=== PATIENT | female | born 1950 | race Caucasian/White ===

== ENCOUNTER → 2017-05-20 | Outpatient (REF) | payer MEDICARE, OTHER ==
[2017-05-20 22:15] LABS: ATYPICAL LYMPH 1 % (0-5); EOSINOPHILS 3 % (0-5); LYMPHOCYTES 15 % (16-52); MONOCYTES 7 % (0-8); NEUTROPHILS 74 % (35-75); PLATELET ESTIMATE NORMAL (NORMAL)
== END ==
LOC: M LAB REF 17:46
DX: Z85.038 Personal history of other malignant neoplasm of large intestine (principal); Z93.3 Colostomy status
CPT/HCPCS: 85007

== ENCOUNTER → 2018-01-20 | Outpatient (REF) | payer MEDICARE, OTHER ==
[2018-01-21 14:37] LABS: HEPATITIS C VIRUS ABY INDEX 0.1 INDEX (<0.8)
== END ==
LOC: M LAB REF 17:36
DX: Z01.89 Encounter for other specified special examinations (principal)
CPT/HCPCS: 86803

== ENCOUNTER → 2018-05-20 | Outpatient (REF) | payer MEDICARE, OTHER ==
[~2018-05-20] MED LIST: BUSPIRONE PO; CALCIUM & VITAMIN D PO; LISI10TA4 PO; MAGNESIUM OXIDE PO; MULTIVIT PO; POTA20TA PO; VITAMIN B-50 PO; VITAMIN D50000 UNT PO
== END ==
LOC: M LAB REF 11:49
PROVIDERS: ATTEND Nurse Practitioner Adult Health
DX: Z85.038 Personal history of other malignant neoplasm of large intestine (principal)

== ENCOUNTER → 2019-04-15 | Outpatient (CLI) | payer MEDICARE, OTHER ==
--- NOTE | 2019-04-15 15:32 | REP ---
Clinical: Lung screening. History smoking. Comparison: 02/23/2014 Technique: Axial low-dose noncontrast images from the thoracic inlet to the upper abdomen using lung screening technique. Findings: The lung beaulieu are well-aerated. No consolidation, significant nodule or mass lesion is appreciated. No pleural effusion/reaction or pneumothorax. Tracheobronchial tree is patent. Mediastinum demonstrates mild atherosclerotic changes of the coronary arteries without cardiomegaly. Impression: Lung-RADS category I. No nodule or suspicious abnormality. Electronically Signed by Jorge Luis Zapien MD 04/15/2019 03:24 P
== END ==
LOC: M RAD 13:57
PROVIDERS: ATTEND Nurse Practitioner Adult Health
DX: F17.210 Nicotine dependence, cigarettes, uncomplicated (principal)

== ENCOUNTER → 2020-01-07 | Outpatient (CLI) | payer MEDICARE, OTHER ==
[2020-01-07 19:23] LABS: BASO # 0.1 10^3/uL (0.0-0.2); BASO % 0.5 % (0.0-1.0); EOS # 0.2 10^3/uL (0.0-0.5); EOS % 2.2 % (0.0-3.0); HEMOGLOBIN 16.4 g/dl (12.0-15.5); LYMPH # 1.2 10^3/uL (1.5-5.0); LYMPH % 11.1 % (24.0-44.0); MEAN CORPUSCULAR HEMOGLOBIN 30.1 pg (27.0-33.0); MEAN CORPUSCULAR HGB CONC 32.8 g/dl (32.0-36.5); MEAN CORPUSCULAR VOLUME 91.9 fl (80.0-96.0); MONO % 8.8 % (0.0-5.0); NEUTROPHILS # 8.4 10^3/uL (1.5-8.5); PLATELET COUNT, AUTOMATED 324 10^3/uL (150-450); RED BLOOD COUNT 5.44 10^6/uL (4.00-5.40); WHITE BLOOD COUNT 10.9 10^3/uL (4.0-10.0)
[2020-01-07 19:26] LABS: CALCIUM LEVEL 10.3 MG/DL (8.8-10.2); CREATININE FOR GFR 1.33 MG/DL (0.55-1.30); GLOMERULAR FILTRATION RATE 42.2 (>45); POTASSIUM SERUM 4.6 MEQ/L (3.5-5.1)
== END ==
LOC: M WUC 13:10
PROVIDERS: ATTEND Physician Assistant
DX: M54.5 Low back pain (principal); Z79.899 Other long term (current) drug therapy

== ENCOUNTER → 2020-01-07 | Outpatient (REF) | payer MEDICARE, OTHER | LOC: M LAB REF 18:20 | PROVIDERS: ATTEND Physician Assistant | DX: R35.0 Frequency of micturition (principal) ==

== ENCOUNTER → 2020-03-04 | Outpatient (CLI) | payer MEDICARE, OTHER ==
--- NOTE | 2020-03-09 08:43 | SLEEPCENT ---
DATE: 03/04/2020 ORDERED BY: Kaci Stanton Nocturnal polysomnography was performed for the titration of pressure therapy in this patient with obstructive sleep apnea syndrome. For testing, a ResMed AirFit F20 full-face mask of medium size was used. There was 10 cm of water pressure applied to the circuit, and the lights were extinguished. There was 7 hours and 38 minutes of data reviewed. There was 371 minutes of sleep identified. Sleep latency was mildly prolonged at 15 minutes. REM latency was prolonged at 131 minutes. Sleep architecture was good with three REM cycles. Overall sleep efficiency was 81.9%. The electrocardiogram showed a sinus rhythm with average heart rate of 68 beats per minute. EEG showed normal waveforms for wake and sleep. Persistence of respiratory events prompted an increase in CPAP to the optimal pressure of +15, and remaining measures of sleep physiologies were normal. IMPRESSION: Obstructive sleep apnea syndrome (G47.33). RECOMMENDATION: Nightly use of pressure therapy, 15 cm of water. MTDD
== END ==
LOC: M SLEEP 20:00
PROVIDERS: ATTEND Nurse Practitioner Adult Health
DX: G47.33 Obstructive sleep apnea (adult) (pediatric) (principal)

== ENCOUNTER → 2020-05-11 | Outpatient (CLI) | payer MEDICARE, OTHER ==
--- NOTE | 2020-05-11 12:44 | REP ---
INDICATION: CKD 3B , HTN COMPARISON: 05/02/2010 TECHNIQUE: Real time moran scale ultrasound examination using curved array transducer. FINDINGS: The bilateral kidneys are normal in reniform shape and echotexture with increased central sinus fat and mild cortical thinning consistent with chronic medical renal disease. No hydronephrosis, nephrolithiasis, cystic or renal mass lesion appreciated. Right kidney measures 11.4 x 4.8 x 4.3 cm with suggestions for duplicated collecting system. Left kidney measures 10.9 x 4.3 x 4.0 cm with suggestions for duplicated collecting system. IMPRESSION: Chronic medical renal disease. No hydronephrosis. <Electronically signed by Jorge Luis Zapien > 05/11/20 [id number]
--- NOTE | 2020-05-11 12:56 | REP ---
INDICATION: CKD 3B , HTN, WITH PVR COMPARISON: None TECHNIQUE: Real time B-mode ultrasound examination using curved array transducer. FINDINGS: Bladder never appears fully distended. No obvious bladder mass lesion is appreciated. No bilateral ureteral jets were identified during examination. Prevoid bladder measures 6.1 x 6.6 x 2.0 cm (53 cc). Postvoid bladder measures 0 cc Postvoid residual: 0% IMPRESSION: 1. Bladder never appears fully distended. However there is complete emptying on postvoid images. <Electronically signed by Jorge Luis Zapien > 05/11/20 [id number]
== END ==
LOC: M RAD 11:11
PROVIDERS: ATTEND Internal Medicine Nephrology
DX: N18.32 Chronic kidney disease, stage 3b (principal); Z93.2 Ileostomy status; I12.9 Hypertensive chronic kidney disease with stage 1 through stage 4 chronic kidney disease, or unspecified chronic kidney disease

== ENCOUNTER → 2020-05-17 | Outpatient (CLI) | payer MEDICARE, OTHER ==
--- NOTE | 2020-05-17 14:02 | REP ---
INDICATION: NICOTINE DEPENDENCE COMPARISON: 04/15/2019, 08/10/2010 TECHNIQUE: Axial noncontrast images from the thoracic inlet to the upper abdomen using low-dose lung screening technique (LDCT). FINDINGS: Bilateral lung beaulieu are well aerated and clear. No suspicious nodule mass lesion. No consolidation or effusion. No pneumothorax. Tracheobronchial tree is patent. IMPRESSION: Lung-RADS category 1. No suspicious nodule or mass. Management recommendations include annual low-dose surveillance. <Electronically signed by Jorge Luis Zapien > 05/17/20 [id number]
== END ==
LOC: M RAD 13:35
PROVIDERS: ATTEND Nurse Practitioner Adult Health
DX: Z12.2 Encounter for screening for malignant neoplasm of respiratory organs (principal); F17.218 Nicotine dependence, cigarettes, with other nicotine-induced disorders

== ENCOUNTER → 2020-08-17 | Outpatient (CLI) | payer MEDICARE, OTHER ==
--- NOTE | 2020-08-17 14:07 | REPMRS ---
Patient History The patient states she has not had a clinical breast exam in over a year. Patient is postmenopausal, has history of rectal cancer at age 55, and had previous chemotherapy at age 55. Family history of colorectal cancer in maternal aunt, unknown cancer in maternal grandmother. Patient had a right breast bx in 2006-neg. 3D TOMOSYNTHESIS WAS PERFORMED. [facility] lifetime risk for breast cancer is 4.5%. Volpara breast density a. Digital Woman Screen Mammo: August 17, 2020 - Exam #: [id number] Bilateral CC and MLO view(s) were taken. Technologist: Echo Espinoza, Technologist Prior study comparison: July 18, 2017, bilateral digital mammo screening bilat, performed at [facility]. December 31, 2014, diagnostic bilateral mammo, performed at [facility]. FINDINGS: There are scattered fibroglandular densities. There is a fairly symmetric fibroglandular pattern in both breasts. There has been no interval development of masses, areas of architectural distortion or clusters of microcalcifications typical of malignancy. Scattered small nodular opacities appear essentially stable. Scattered coarse benign type calcifications are present. No significant changes when compared with prior studies. Assessment: BI-RADS/ACR category 2 mammogram. Benign Findings. Recommendation Routine screening mammogram of both breasts in 1 year (for women over age 40). This mammogram was interpreted with the aid of an FDA-approved computer-aided dectection system. Electronically Signed By: Elmo Ledesma MD 08/17/20 [id number]
== END ==
LOC: M WHC 11:31
PROVIDERS: ATTEND Nurse Practitioner Adult Health
DX: Z12.31 Encounter for screening mammogram for malignant neoplasm of breast (principal); Z80.0 Family history of malignant neoplasm of digestive organs; Z85.048 Personal history of other malignant neoplasm of rectum, rectosigmoid junction, and anus; Z92.21 Personal history of antineoplastic chemotherapy; R92.1 Mammographic calcification found on diagnostic imaging of breast

== ENCOUNTER 2020-11-23 19:10 | Inpatient (IN) | payer MEDICARE, OTHER ==
[~2020-11-23] VITALS: Ht 170.2 cm; Wt 104.9 kg
[2020-11-23] MEDS ORDERED: ASPI81CH33 PO (19:27)
[2020-11-23] MEDS ORDERED: LISI-898 PO ×2 (19:27→23:55)
[2020-11-23] MEDS ORDERED: XANA0.25 PO (19:27)
[2020-11-23] MEDS ORDERED: ANOR1AER PO (19:27)
[2020-11-23] MEDS ORDERED: LASI40TA9 PO (19:27)
[2020-11-23] MEDS ORDERED: COMBAER6 INH ×2 (19:27→23:55)
[2020-11-23] MEDS ORDERED: OMEP-218 PO (19:27)
[2020-11-23] MEDS ORDERED: PROBCAP14 PO (19:27)
[2020-11-23] MEDS ORDERED: KLOR10TA76 PO (19:27)
[2020-11-23] MEDS ORDERED: SPIR-10 PO ×2 (19:28→23:55)
[2020-11-23] MEDS ORDERED: NS 1,000 ML IV ONE (20:05)
[2020-11-23] MEDS ORDERED: ONDANSETRON 4MG/2ML VIAL IV ONE (20:10)
[2020-11-23] MEDS ORDERED: MORPHINE 2 MG/ML 1ML VIAL (J2270) IV PRN ×2 (20:10→23:20)
[2020-11-23] MEDS ORDERED: PANTOPRAZOLE 40MG VIAL (C9113 PER 1) IV ONE (20:15)
[2020-11-23 20:47] LABS: BASO # 0.1 10^3/uL (0.0-0.2); BASO % 0.4 % (0.0-1.0); EOS % 0.1 % (0.0-3.0); HEMATOCRIT 48.1 % (36.0-47.0); HEMOGLOBIN 16.1 g/dl (12.0-15.5); LYMPH # 0.7 10^3/uL (1.5-5.0); MEAN CORPUSCULAR HGB CONC 33.5 g/dl (32.0-36.5); MEAN CORPUSCULAR VOLUME 86.7 fl (80.0-96.0); MONO # 0.8 10^3/uL (0.0-0.8); MONO % 5.5 % (2.0-8.0); NEUTROPHILS # 12.2 10^3/uL (1.5-8.5); NEUTROPHILS % 88.5 % (36.0-66.0); PLATELET COUNT, AUTOMATED 339 10^3/uL (150-450); RED BLOOD COUNT 5.55 10^6/uL (4.00-5.40); WHITE BLOOD COUNT 13.7 10^3/uL (4.0-10.0)
[2020-11-23 21:00] LABS: INR 0.88; PROTHROMBIN TIME 12.1 SECONDS (12.5-14.3)
[2020-11-23] MEDS ORDERED: LABETALOL 100MG/20ML VIAL IV SCH (21:00)
[2020-11-23 21:01] LABS: PARTIAL THROMBOPLASTIN TIME 23.9 SECONDS (24.2-38.5)
[2020-11-23] MEDS ORDERED: ISOVUE-370 76% 100ML VIAL As Ordered ONE (21:17)
[2020-11-23 21:23] LABS: ALBUMIN 3.8 GM/DL (3.2-5.2); ALT/SGPT 42 U/L (12-78); BILIRUBIN,DIRECT 0.1 MG/DL (0.0-0.2); BILIRUBIN,TOTAL 0.8 MG/DL (0.2-1.0); BLOOD UREA NITROGEN 25 MG/DL (7-18); CALCIUM LEVEL 9.6 MG/DL (8.8-10.2); CARBON DIOXIDE LEVEL 29 MEQ/L (21-32); CHLORIDE LEVEL 95 MEQ/L (98-107); CK-MB VALUE MASS 2.5 NG/ML (<3.6); CPK CREATINE PHOSPHOKINASE 214 U/L (26-192); CREATININE FOR GFR 1.42 MG/DL (0.55-1.30); GLUCOSE, FASTING 113 MG/DL (70-100); LIPASE 126 U/L (73-393); MB/CK RELATIVE INDEX 1.17 (< OR =4); POTASSIUM SERUM 5.2 MEQ/L (3.5-5.1); SODIUM LEVEL 132 MEQ/L (136-145); TOTAL PROTEIN 7.6 GM/DL (6.4-8.2); TROPONIN I < 0.02 NG/ML (< 0.10)
[2020-11-23 22:00] LABS: RSV AMPLIFICATION NEGATIVE (NEGATIVE)
--- NOTE | 2020-11-23 23:03 | REPVR ---
PROCEDURE INFORMATION: Exam: CT Abdomen And Pelvis With Contrast Exam date and time: 11/23/2020 9:40 PM Age: 70 years old Clinical indication: Abdominal pain; Prior surgery TECHNIQUE: Imaging protocol: Computed tomography of the abdomen and pelvis with contrast. Radiation optimization: All CT scans at this facility use at least one of these dose optimization techniques: automated exposure control; mA and/or kV adjustment per patient size (includes targeted exams where dose is matched to clinical indication); or iterative reconstruction. Contrast material: ISOVUE 370; Contrast volume: 100 ml; Contrast route: INTRAVENOUS (IV); COMPARISON: BLADDER (LIMITED PELVIC) US 05/11/2020 11:56 AM FINDINGS: Liver: Unremarkable. No mass. Gallbladder and bile ducts: There has been prior cholecystectomy. No biliary duct dilation. Pancreas: Normal. No ductal dilation. Spleen: Normal. No splenomegaly. Adrenal glands: 1.3 cm nodule in the right adrenal gland. Mild left adrenal hyperplasia. Kidneys and ureters: Unremarkable. No calculi or hydronephrosis. Stomach and bowel: 3.6 cm duodenal diverticulum. Prior partial colectomy. There is a colostomy in the left lower quadrant. The residual colon is decompressed. Postoperative changes are noted in the small bowel. The small bowel is dilated measuring up to 3.5 cm. Dilated bowel loops in the peristomal hernia with 2 separate transition points in the hernia. No pneumatosis. Appendix: There has been prior appendectomy. Intraperitoneal space: Mild mesenteric edema. No pneumoperitoneum or abscess. Vasculature: Unremarkable. No abdominal aortic aneurysm. Lymph nodes: Unremarkable. No enlarged lymph nodes. Urinary bladder: Unremarkable as visualized. Reproductive: There has been prior hysterectomy. Bones/joints: There are advanced degenerative changes in the spine and pelvis. No acute fracture. Soft tissues: A right lower quadrant ileostomy is present with a large peristomal hernia. IMPRESSION: 1. Distal small bowel obstruction with transition points in a peristomal hernia in the right lower quadrant. 2. Incidental duodenal diverticulum. 3. Nonspecific right adrenal nodule. Comparison with any prior imaging or follow-up adrenal MRI is recommended. Electronically signed by: Trae España On 11/23/2020 23:02:47 PM
[2020-11-23] MEDS ORDERED: IPRATROPIUM 0.5MG/ALBUTEROL 2.5MG INH SOL UD 3ML (DUONEB) NEB PRN (23:20)
[2020-11-23] MEDS ORDERED: NICOTINE 21MG/24HR 1 EA TRANSDERMAL TD ONE (23:20)
[2020-11-23] MEDS ORDERED: LORazepam 2 MG/ML VIAL IV PRN (23:45)
--- NOTE | 2020-11-23 23:46 | HPEPDOC ---
[facility] Medical History & Physical Date of Admission Nov 23, 2020 Date of Service: Nov 23, 2020 Primary Care Physician: Yoana Godinez Attending Physician: JAMISON GARY MD History and Physical CHIEF COMPLAINT: Abdominal pain with decreased ostomy output HISTORY OF PRESENT ILLNESS: Mrs. Dewey is a 70-year-old female who presented to the ER with complaints of increasing abdominal pain and decreased ileostomy output with some nausea since about 5 AM this morning. Patient has a history of rectal cancer with multiple pr evious abdominal surgeries and radiation. Ultimately, she wound up with an ileostomy since 2005. 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 She said she woke up this morning at around 5:30 AM and that was the last normal output she noted from her ostomy. As the morning wore on, she felt a little gassy, drank some water and took some gas pills and felt somewhat better. She had a very light breakfast and took some of her morning medications, but after that began to feel more bloated and noticed a decreased output. She started to drink more fluids, hoping that that would "get things flowing". However, she be lizzette to feel worse and finally went to bed. When things had not improved by late afternoon she called her primary care office and was instructed to proceed to the ER by the physician guest relations officer. On initial evaluation. Vital signs were relatively unremarkable. White blood cell count was elevated at 13.7. Hemoglobin and hematocrit were 16 and 48. The patient continues to smoke at least one pack of cigarettes per day despite a diagnosis of COPD. She uses Annoro daily and Combivent as needed. She takes Lasix and spironolactone for "fluid build up in my legs". She also takes a potassium supplement. She has a history of chronic kidney disease and follows with nephrology. Potassium today was 5.2. BUN/c reatinine 25 and 1.42. Baseline creatinine is not known. Sodium was also decreased at 132. Elevation of LFTs with AST of 49, alkaline phosphatase of 123. There is some mild elevation of CPK at 214. Lactic acid was normal. ER provider. Consult to Gen. surgery, Dr. Joiner, once the CT abdomen and pelvis was done. Imaging showed a distal small bowel obstruction with transition points in the parastomal hernia in the right lower quadrant. General surgery advised to keep the patient nothing by mouth, place an NG tube to low intermittent suction and start IV fluids. He will evaluate further in the morning. PAST MEDICAL HISTORY: 1. Rectal cancer with ileostomy. 2. Prolapsed ileostomy. 3. Mucoid fistula. 4. Depression. 5. Anxiety. 6. COPD 7. Diverticulitis. 8. Hypertension. 9. Chronic kidney disease. 10. Gastroesophageal reflux disease. 11. Cataracts. 12. Tobacco use PAST SURGICAL HISTORY: 1. Exploratory laparotomy with partial colon resection. 2. Exploratory laparotomy with colon resection and ileostomy. 3. Discectomy. 4. Tubal ligation. 5. Right knee surgery SOCIAL HISTORY: Tobacco use: Patient admits to smoking at least one pack per day ETOH: She has an occasional glass of wine Illicit drug use: Denies Patient lives with: Her FAMILY HISTORY: Family history was thoroughly reviewed and found to be noncontributory REVIEW OF SYSTEMS: Complete 10 point review systems is negative except as noted above PHYSICAL EXAMINATION: Patient is seen in the ER, lying on stretcher.. She is alert and oriented x 3. HEENT is WNL. Neck is supple. Lungs with some expiratory wheeze. Heart regular rate and rhythm without murmur. Abdomen is obese, soft with bowel sounds noted in the bilateral upper quadrants. . She has a right lower quadrant ostomy with a large prolapse. Prolapse is pink and viable. There is a small amount of light brown drainage. Significant parastomal hernia noted. Extremities with good ROM and strength equal bilaterally. 1+ lower extremity edema. Pedal pulses are positive. Skin is warm and dry with no obvious rash or lesion. Neuro: grossly intact. Psych: She is pleasant and cooperative through most of the interview, but becomes tearful after her left. Her children are in town for only a week to visit. ASSESSMENT AND PLAN: 1. Small bowel obstruction with multiple transition points in the parastomal hernia. Gen. surgery to evaluate in the morning. Patient will be kept nothing by mouth and NG tube will be inserted to low intermittent suction. Continue on IV fluids. Will add when necessary antiemetics and pain medications. 2. Chronic kidney disease stage III with baseline creatinine unclear. Will hold home Lasix and spironolactone. Patient is continued on gentle IV fluids. Avoid nephrotoxic medications. Monitor intake and output closely. Recheck kidney function in the morning. 3. Hyperkalemia. Hold home potassium supplementation. Patient is continued on IV fluids. Recheck potassium in the morning. 4. Leukocytosis secondary to small bowel obstruction. Plan as outlined above. Will hold off on starting antibiotics for now with a normal lactic acid. Recheck white blood cell count with labs in the morning. 5. Hypertension. Will add IV labetalol with patient nothing by mouth. Monitor with routine vital signs and adjust medications as needed based on trends. 6. Gastroesophageal reflux disease. IV Protonix. 7. Anxiety. Will add when necessary Ativan while nothing by mouth. 8. Hyponatremia. IV fluids. Recheck labs in the morning. 9. Transaminitis with small bowel obstruction. Plan as outlined above. Recheck labs in the morning. 10. DVT prophylaxis. Will add Lovenox. CODE STATUS: CODE STATUS was discussed with the patient desires to be considered full code. She states her , Dominick or her son Tam would act as her surrogate if she were unable to make her decisions. Patient is considered high risk of further deterioration including possible ischemic bowel. She is admitted as inpatient and expected to remain at least 2-3 midnights. Vital Signs Vital Signs Date Time Temp Pulse Resp B/P (MAP) Pulse Ox O2 Delivery O2 Flow Rate FiO2 11/23/20 21:07 18 11/23/20 20:52 11/23/20 19:12 98.5 95 97 Room Air Laboratory Data Labs 24H Laboratory Tests 2 11/23/20 20:20: Immature Granulocyte % (Auto) 0.5, Neutrophils (%) (Auto) 88.5H, Lymphocytes (%) (Auto) 5.0L, Monocytes (%) (Auto) 5.5, Eosinophils (%) (Auto) 0.1, Basophils (%) (Auto) 0.4, Neutrophils # (Auto) 12.2H, Lymphocytes # (Auto) 0.7L, Monocytes # (Auto) 0.8, Eosinophils # (Auto) 0.0, Basophils # (Auto) 0.1, Nucleated Red Blood Cells % (auto) 0.0, Prothrombin Time 12.1, Prothromb Time International Ratio 0.88, Activated Partial Thromboplast Time 23.9L, Anion Gap 8, Glomerular Filtration Rate 39.0L, Lactic Acid Level 1.1, Calcium Level 9.6, Total Bilirubin 0.8, Direct Bilirubin 0.1, Aspartate Amino Transf (AST/SGOT) 49H, Alanine Aminotransferase (ALT/SGPT) 42, Alkaline Phosphatase 123H, Total Creatine Kinase 214H, Creatine Kinase MB 2.5, Creatine Kinase MB Relative Index 1.17, Troponin I < 0.02, Total Protein 7.6, Albumin 3.8, Albumin/Globulin Ratio 1.0L, Lipase 126, Coronavirus (COVID-19)(PCR) NEGATIVE, Influenza Type A (RT-PCR) NEGATIVE, Influenza Type B (RT-PCR) NEGATIVE, Respiratory Syncytial Virus (PCR) NEGATIVE 11/23/20 20:42: POC Glucose (Misc Panel) 126H, POC Sodium (Misc Panel) 134L, POC Potassium (Misc Panel) 3.7, POC Chloride (Misc Panel) 93L, POC Total CO2 (Misc Panel) 27.0, POC Blood Urea Nitrogen (Misc Panel 25, POC Ionized Calcium (Misc Panel) 4.5, POC Creatinine (Misc Panel) 1.5H, POC Hematocrit (Misc Panel) 50.0 CBC/BMP Laboratory Tests 11/23/20 20:20 Home Medications Scheduled Aspirin (Aspirin) 81 Mg Tab.chew, 81 MG PO DAILY for pain Furosemide (Lasix) 40 Mg Tablet, 40 MG PO BID Ipratropium/Albuterol Sulfate (Combivent Respimat 20-100 Mcg) 4 Gm Mist.inhal, 2 PUFF INH TID Lactobacillus Acidophilus (Probiotic) 1 Each Capsule, 1 CAP PO BID Lisinopril (Lisinopril) 5 Mg Tablet, 5 MG PO DAILY Multivitamins (Multivitamin) 1 Tab Tab, PO DAILY Omeprazole (Omeprazole) 20 Mg Capsule.dr, 20 MG PO DAILY Potassium Chloride (Klor-Con M10) 10 Meq Tab.er.prt, 1 TAB PO DAILY Spironolactone (Spironolactone) 25 Mg Tablet, 25 MG PO DAILY Umeclidinium Brm/Vilanterol Tr (Anoro Ellipta 62.5-25 Mcg INH) 1 Each Blst.w.dev, 1 PUFF PO DAILY Vitamin D (Vitamin D) 50,000 Units Cap, 50,000 UNT PO 1XWK [Buspirone] , 20 MG PO TID [Calcium & Vitamin D] , PO DAILY [Vitamin B-50] , 1 TAB PO DAILY Scheduled PRN Alprazolam (Xanax) 0.25 Mg Tablet, 0.25 MG PO BIDP PRN for anxiety Allergies Coded Allergies: MS - Penicillins (Verified Allergy, Intermediate, HIVES, 08/12/12) MS - Penicillins Cross Reactors (Verified Allergy, Intermediate, HIVES, 08/12/12) Penicillins (Verified Allergy, Intermediate, HIVES, 11/23/20) sertraline (Verified Adverse Reaction, Intermediate, BP ISSUES(non specific), 11/23/20) MS - Sertraline (Verified Adverse Reaction, Mild, BP PROBLEMS, 08/12/12) A-FIB/CHADSVASC A-FIB History Current/History of A-Fib/PAF?: No BENNY MCBRIDE TANYA Nov 23, 2020 23:46
[2020-11-23] MEDS ORDERED: OCUVTAB8 PO (23:55)
[2020-11-23] MEDS ORDERED: BUPR100T10 PO (23:55)
[2020-11-23] MEDS ORDERED: KLOR CON EF PO (23:55)
[2020-11-23] MEDS ORDERED: OMEP1CAP73 PO (23:55)
[2020-11-23] MEDS ORDERED: ANTA1CHW6 PO (23:55)
[2020-11-23] MEDS ORDERED: ALPR0.25 PO (23:55)
[2020-11-23] MEDS ORDERED: PROAAER10 INH (23:55)
[2020-11-23] MEDS ORDERED: SIME125C4 PO (23:55)
[2020-11-23] MEDS ORDERED: B-COTAB4 PO (23:55)
[2020-11-23] MEDS ORDERED: CAL-TAB2 PO (23:55)
[2020-11-23] MEDS ORDERED: BACITAB PO (23:55)
[2020-11-23] MEDS ORDERED: VITMTA PO (23:55)
[2020-11-23] MEDS ORDERED: CHOL50003 PO (23:55)
[2020-11-23] MEDS ORDERED: ASPI1CHW3 PO (23:55)
[2020-11-23] MEDS ORDERED: ANOR1AER INH (23:55)
[2020-11-23] MEDS ORDERED: BUPR-69 PO (23:55)
[2020-11-23] MEDS ORDERED: FURO40TA2 PO (23:55)
[2020-11-24] MEDS: NS 1,000 ML IV SCH ×2 (00:10→16:58)
[2020-11-24 02:05] VITALS: BP 153/78
[2020-11-24] MEDS: ALPRAZolam 0.25 MG TAB PO SCH (02:26)
[2020-11-24] MEDS ORDERED: NICOTROL PRN (02:40)
--- NOTE | 2020-11-24 05:30 | ECGEPIP ---
[facility] [place] - ED Test Date: 2020-11-23 Pat Name: VALENTIN WHALEY Department: Room: - Gender: Female General Internist: BRETT : 1950 Requested By: IDA Oconnell Order Number: [id number] Reading MD: Sunny Benitez Measurements Intervals [place] Rate: 89 P: 56 TX: 158 QRS: 12 QRSD: 74 T: 32 QT: 388 QTc: 472 Interpretive Statements Normal sinus rhythm Low voltage QRS NO PRIORS FOR COMPARISON Electronically Signed on 11-24-2020 5:30:32 EDT by Sunny Benitez
[2020-11-24 06:29] VITALS: BP 148/73
[2020-11-24] MEDS: **hydrALAZINE** 10 MG TAB PO PRN (06:36)
[2020-11-24 06:50] LABS: HEMATOCRIT 44.5 % (36.0-47.0); HEMOGLOBIN 14.9 g/dl (12.0-15.5); MEAN CORPUSCULAR HEMOGLOBIN 29.1 pg (27.0-33.0); MEAN CORPUSCULAR HGB CONC 33.5 g/dl (32.0-36.5); MEAN CORPUSCULAR VOLUME 86.9 fl (80.0-96.0); PLATELET COUNT, AUTOMATED 331 10^3/uL (150-450); RED BLOOD COUNT 5.12 10^6/uL (4.00-5.40)
[2020-11-24 07:09] LABS: ALBUMIN 3.3 GM/DL (3.2-5.2); BILIRUBIN,TOTAL 0.7 MG/DL (0.2-1.0); CALCIUM LEVEL 9.1 MG/DL (8.8-10.2); CREATININE FOR GFR 1.29 MG/DL (0.55-1.30); GLOMERULAR FILTRATION RATE 43.6 (>45); MAGNESIUM LEVEL 2.4 MG/DL (1.8-2.4); POTASSIUM SERUM 3.9 MEQ/L (3.5-5.1); TOTAL PROTEIN 6.3 GM/DL (6.4-8.2)
[2020-11-24] MEDS: IPRATROPIUM 0.5MG/ALBUTEROL 2.5MG INH SOL UD 3ML (DUONEB) NEB SCH ×3 (07:12→19:50)
[2020-11-24] MEDS: BUDESONIDE 0.5 MG/2 ML INHALATION SUSPENSION INH SCH ×2 (07:12→19:50)
[2020-11-24] MEDS ORDERED: LevoFLOXacin IV 750 MG in IV 1 EA IV SCH (09:00)
[2020-11-24] MEDS ORDERED: hydrALAZINE 20MG/ML 1ML VIAL (J0360 PER 20MG) IV PRN (09:05)
--- NOTE | 2020-11-24 09:44 | IPNPDOC ---
Subjective Date Seen The patient was seen on 11/24/20. Subjective Chief Complaint/HPI Mrs. Dewey is a 70-year-old female who presented to the ER with complaints of increasing abdominal pain and decreased ileostomy output with some nausea past 24 hours. The patient has a history of rectal cancer with multiple previous abdominal surgeries, ostomy placement and reversal between [id number]. 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 She underwent CT a/p and found to have SBO and general surgery, Dr. Joiner, was consulted. Pt reported she has a hx of SBOs, last was a few years ago at [facility] and it resolved after a few days reportedly. Pt reports she is feeling improvement in pain. She still describes slightly intermittently dull sensation generalized of her abdomen, 2/10 rating and mild generalized tenderness noted. NGT canister with 300ml output liquid levine/brown in coloration noted, this is since admission reportedly. This is the same liquid that is in the ostomy bag (roughly 100ml in bag noted)- Pt reports she cannot recall when last she changed the bag- it may have been yesterday. Patient is somewhat drowsy during exam- last pain medication reportedly last night, she did remark she was unable to sleep most of the night due to the pain, but now denies nausea and with pain lessened-reports feeling she can rest. Pt denies meadows, fever/ chills, sinus congestion, sore throat, sob, palpitations, or chest pain. General: Denies: Chills, Night Sweats, Fatigue, Malaise Constitutional: Reports: Fatigue; Denies: Chills, Fever Eyes: Denies: Pain, Vision change ENT: Denies: Head Aches, Ear Pain, Dysphagia Skin: Denies: Rash, Lesions, Breakdown Pulmonary: Denies: Dyspnea, Cough Cardiovascular: Denies: Chest Pain, Palpitations, Orthopnea, Paroxysmal Noc. Dyspnea, Lt Headedness Gastrointestinal: Reports: Nausea, Abdominal Pain, Constipation Genitourinary: Denies: Dysuria, Frequency, Incontinence, Retention Hematologic: Denies: Bruising, Bleeding Excessively Musculoskeletal: Denies: Neck Pain, Back Pain, Joint Pain, Muscle Pain, Spasms Neurological: Denies: Weakness, Numbness, Change in speech, Confusion Psych: Reports: Mood Normal; Denies: Depression, Memory Issues Objective Physical Examination General Exam: Positive: Cooperative, No Acute Distress, Other (drowsy, doozing intermittently, able to arouse easily and response very appropriately, ox3) Eye Exam: Positive: PERRLA, Conjunctiva & lids normal, EOMI; Negative: Sclera icteric ENT Exam: Positive: Atraumatic, Mucous membr. moist/pink, Pharynx Normal Neck Exam: Positive: Supple; Negative: JVD, thyromegaly Chest Exam: Positive: Clear to auscultation, Normal air movement Heart Exam: Positive: Rate Normal, Regular Rhythm, Normal S1, Normal S2; Negative: Murmurs, Rubs Abdomen Exam: Positive: Soft (tinkiling sounds with auscultation, obese body habitus; ileostomy present with prolapsed stoma, stoma pink/ moist, minor drainage serosanguinous to surrounding gauze of the ostomy, abdominal binder in place), Tenderness, Other Female Exam: Positive: Nl Ext Genitalia; Negative: Lesions, Discharge, Odor, Tenderness Extremity Exam: Positive: Normal pulses; Negative: Clubbing, Cyanosis, Edema Skin Exam: Positive: Nl turgor and temperature, Other skin issue (no obvious moisture breakdown noted surrounding visualized portions of abdominal skin around ostomy site); Negative: Rash, Breakdown Neuro Exam: Positive: Normal Speech, Strength at 5/5 X4 ext, Normal Tone Psych Exam: Positive: Mental status NL, Mood NL, Oriented x 3 RAD Interpretation STUDY: CT abdomen pelvis:"1. Dis Rad Actions: Report Reviewed RAD Interpretation: Other Result Comments: (Incidental finding and recommendation noted) Assessment /Plan Plan/VTE VTE Prophylaxis Ordered?: Yes Plan IVF: Continue Diet: Continue Current (NPO) Activity: Continue Current Medications: Start Antibiotics (levaquin and flagyl) Diagnostics: Repeat Labs in AM Anticipated Discharge: Home 1. Small bowel obstruction with multiple transition points in the parastomal hernia: Pt improving clinical symptoms. Plan for continued conservative management. Gen. surgery recommendations appreciated. Patient will be kept nothing by mouth and NG tube continued at low intermittent suction. Continue on IV fluids. As ne eded antiemetics and pain medications. Patient was educated regarding judicious use of pain medication given the risk and benefits of side effects with small bowel obstruction and opiates. 2. Chronic kidney disease stage III with baseline creatinine unclear. Cr 1.42 to 1.29 this AM. Will continue to hold home Lasix and spironolactone. Continue on gentle IV fluids with monitoring for fluid overload or hypertension. Avoid nephrotoxic medications. Monitor intake and output closely. BMP in AM. 3. Hyperkalemia. Hold home potassium supplementation. Patient is continued on IV fluids. 4. Leukocytosis secondary to small bowel obstruction. Plan as outlined above. Patient fortunately without systemic signs of infection (she remains afebrile, not tachycardic). However her WBCs have increased this a.m. and thus, will initiate Levaquin and Flagyl for intra-abdominal coverage. Monitor for any s igns symptoms of worsening infection. CBC with differential in AM. De-escalate antibiotics accordingly. 5. Hypertension. Monitor with routine vital signs and adjust medications as needed based on trends. P.o. medications on hold given above. Plan for IV blood pressure control if patient systolic blood pressure greater than 160 for the interim while patient is n.p.o. 6. Gastroesophageal reflux disease. IV Protonix. 7. Anxiety. Ativan IV as needed with parameters. 8. Hyponatremia. IV fluids. Na improved to 136. BMP in a.m. 9. Transaminitis with small bowel obstruction. Resolving, AST improved to 31, alk phos dec to 112. 10. DVT prophylaxis: Lovenox. 11. Incidental CT abdomen pelvis finding of nonspecific right adrenal nodule, 1.3 cm: Plan for outpatient PCP follow-up for imaging such as an adrenal MRI. Patient without hypertensive urgency, tachycardia or diaphoretic state. Disposition Home once pt with normoactive BS, adequate ostomy output and tolerating PO, greatly appreciate general surgery recommendations VS, I&O, 24H, Fishbone Vital Signs/I&O Vital Signs Date Time Temp Pulse Resp B/P (MAP) Pulse Ox O2 Delivery O2 Flow Rate FiO2 11/24/20 06:36 148/73 11/24/20 06:29 97.4 85 24 91 Room Air I&O- Last 24 Hours up to 6 AM 11/24/20 06:00 Intake Total 1480 ml Balance 1480 ml Laboratory Data 24H LABS Laboratory Tests 2 11/23/20 20:20: Immature Granulocyte % (Auto) 0.5, Neutrophils (%) (Auto) 88.5H, Lymphocytes (%) (Auto) 5.0L, Monocytes (%) (Auto) 5.5, Eosinophils (%) (Auto) 0.1, Basophils (%) (Auto) 0.4, Neutrophils # (Auto) 12.2H, Lymphocytes # (Auto) 0.7L, Monocytes # (Auto) 0.8, Eosinophils # (Auto) 0.0, Basophils # (Auto) 0.1, Nucleated Red Blood Cells % (auto) 0.0, Prothrombin Time 12.1, Prothromb Time International Ratio 0.88, Activated Partial Thromboplast Time 23.9L, Anion Gap 8, Glomerular Filtration Rate 39.0L, Lactic Acid Level 1.1, Calcium Level 9.6, Total Bilirubin 0.8, Direct Bilirubin 0.1, Aspartate Amino Transf (AST/SGOT) 49H, Alanine Aminotransferase (ALT/SGPT) 42, Alkaline Phosphatase 123H, Total Creatine Kinase 214H, Creatine Kinase MB 2.5, Creatine Kinase MB Relative Index 1.17, Troponin I < 0.02, Total Protein 7.6, Albumin 3.8, Albumin/Globulin Ratio 1.0L, Lipase 126, Coronavirus (COVID-19)(PCR) NEGATIVE, Influenza Type A (RT-PCR) NEGATIVE, Influenza Type B (RT-PCR) NEGATIVE, Respiratory Syncytial Virus (PCR) NEGATIVE 11/23/20 20:42: POC Glucose (Misc Panel) 126H, POC Sodium (Misc Panel) 134L, POC Potassium (Misc Panel) 3.7, POC Chloride (Misc Panel) 93L, POC Total CO2 (Misc Panel) 27.0, POC Blood Urea Nitrogen (Misc Panel 25, POC Ionized Calcium (Misc Panel) 4.5, POC Creatinine (Misc Panel) 1.5H, POC Hematocrit (Misc Panel) 50.0 11/24/20 06:18: Nucleated Red Blood Cells % (auto) 0.0, Anion Gap 7L, Glomerular Filtration Rate 43.6L, Calcium Level 9.1, Total Bilirubin 0.7, Aspartate Amino Transf (AST/SGOT) 31, Alanine Aminotransferase (ALT/SGPT) 49, Alkaline Phosphatase 112, Total Pr otein 6.3L, Albumin 3.3, Albumin/Globulin Ratio 1.1L, Magnesium Level 2.4 CBC/BMP Laboratory Tests 11/23/20 20:20 11/24/20 06:18 Attending Note Attending Note I, Baldev Dhillon, have independently examined this patient and performed my own physical exam, as well as reviewed the documentation and edited where necessary. MARILEE LAND NP Nov 24, 2020 09:08 BALDEV DHILLON MD Nov 24, 2020 11:38
[2020-11-24] MEDS: PANTOPRAZOLE 40MG VIAL (C9113 PER 1) IV SCH (10:30)
[2020-11-24] MEDS: metroNIDAZOLE 500 MG in IV 1 EA IV SCH ×2 (10:30→17:41)
[2020-11-24] MEDS: ENOXAPARIN 30MG/0.3ML SYRINGE (J1650 PER 10MG) SC SCH (10:36)
[2020-11-24] MEDS: LevoFLOXacin IV 750 MG in IV 1 EA IV SCH (11:57)
--- NOTE | 2020-11-24 13:18 | CR.PDOC ---
General Date of Consultation: Nov 24, 2020 Attending Physician: JOHN JOINER MD Consultation General Surgery Dr Joiner HISTORY OF PRESENT ILLNESS: The patient is a 70-year-old female who had reported to the emergency room with increasing abdominal pain and decreased ileostomy output with nausea which had began the morning of 11/23/2020. The patient is known to have a history of rectal cancer with multiple previous abdominal surgeries and radiation. She also has chronic ileostomy prolapse, mucoid fistula and parastomal hernia. She states she has had similar symptoms a couple of weeks ago where she felt nauseated, she has had bowel obstruction in the past therefore she stopped eating or drinking and the symptoms seem to resolve on their own, she did not seek medical attention. General surgery is consulted for small bowel obstruction. ALLERGIES: Please see below. HOME MEDICATIONS: Please see below. PMH/PSH Rectal cancer with colon resection/ileostomy 2005. Completed Chemo/radiation. Reversal of ostomy 2006 complicated by persistent diarrhea. Re-Placement of Ostomy 2008 secondary to persistent symptoms of diarrhea Prolapsed ileostomy/parastomal hernia for the past 7 years progressively worse linda according to the patient. Mucoid fistula. Depression. Anxiety. COPD Diverticulitis. Hypertension. Chronic kidney disease. Gastroesophageal reflux disease. Cataracts. Tobacco use Discectomy. Tubal ligation. Right knee surgery SOCIAL HISTORY: Tobacco use: Patient admits to smoking at least one pack per day REVIEW OF SYSTEMS: As noted in HPI otherwise 10 point review systems unremarkable. PHYSICAL EXAMINATION: VITAL SIGNS: Please see below. GENERAL APPEARANCE: NAD, sitting in bed. HEENT: NG tube in place RESPIRATORY: Clear to auscultation CARDIOVASCULAR: S1-S2 regular rate rhythm ABDOMEN: Obese, soft, distended, ostomy right lower quadrant. Large prolapse noted, pink in color. Light brown drainage noted in the bag. Parastomal hernia noted. EXTREMITIES: No edema LABORATORY DATA: WBC 14.0, hemoglobin 14.9, platelets 331 Serum creatinine 1.29 with GFR 43.6. 500ml output from NGT recorded. CT abdomen/pelvis IMPRESSION: 1. Distal small bowel obstruction with transition points in a peristomal hernia in the right lower quadrant. 2. Incidental duodenal diverticulum. 3. Nonspecific right adrenal nodule. Comparison with any prior imaging or follow-up adrenal MRI is recommended. Electronically signed by: Trae España On 11/23/2020 23:02:47 PM ASSESSMENT/PLAN: Patient with history of rectal cancer with multiple previous abdominal surgeries and radiation. She also has chronic ileostomy prolapse, mucoid fistula and parastomal hernia. Admitted with SBO. The patient is reviewed and examined as per Dr. Joiner this morning. Imaging reviewed by Dr. Joiner. Continue n.p.o. NG tube to LIS IV fluids, IV antibiotics as per hospitalist. Continue to closely monitor. Vital Signs/I&O Vital Signs Date Time Temp Pulse Resp B/P (MAP) Pulse Ox O2 Delivery O2 Flow Rate FiO2 11/24/20 06:36 148/73 11/24/20 06:29 97.4 85 24 91 Room Air I&O- Last 24 Hours up to 6 AM 11/24/20 06:00 Intake Total 1480 ml Balance 1480 ml Laboratory Data Labs 24H Laboratory Tests 2 11/23/20 20:20: Immature Granulocyte % (Auto) 0.5, Neutrophils (%) (Auto) 88.5H, Lymphocytes (%) (Auto) 5.0L, Monocytes (%) (Auto) 5.5, Eosinophils (%) (Auto) 0.1, Basophils (%) (Auto) 0.4, Neutrophils # (Auto) 12.2H, Lymphocytes # (Auto) 0.7L, Monocytes # (Auto) 0.8, Eosinophils # (Auto) 0.0, Basophils # (Auto) 0.1, Nucleated Red Blood Cells % (auto) 0.0, Prothrombin Time 12.1, Prothromb Time International Ratio 0.88, Activated Partial Thromboplast Time 23.9L, Anion Gap 8, Glomerular Filtration Rate 39.0L, Lactic Acid Level 1.1, Calcium Level 9.6, Total Bilirubin 0.8, Direct Bilirubin 0.1, Aspartate Amino Transf (AST/SGOT) 49H, Alanine Aminotransferase (ALT/SGPT) 42, Alkaline Phosphatase 123H, Total Creatine Kinase 214H, Creatine Kinase MB 2.5, Creatine Kinase MB Relative Index 1.17, Troponin I < 0.02, Total Protein 7.6, Albumin 3.8, Albumin/Globulin Ratio 1.0L, Lipase 126, Coronavirus (COVID-19)(PCR) NEGATIVE, Influenza Type A (RT-PCR) NEGATIVE, Influenza Type B (RT-PCR) NEGATIVE, Respiratory Syncytial Virus (PCR) NEGATIVE 7/14/21 20:42: POC Glucose (Misc Panel) 126H, POC Sodium (Misc Panel) 134L, POC Potassium (Misc Panel) 3.7, POC Chloride (Misc Panel) 93L, POC Total CO2 (Misc Panel) 27.0, POC Blood Urea Nitrogen (Misc Panel 25, POC Ionized Calcium (Misc Panel) 4.5, POC Creatinine (Misc Panel) 1.5H, POC Hematocrit (Misc Panel) 50.0 11/24/20 06:18: Nucleated Red Blood Cells % (auto) 0.0, Anion Gap 7L, Glomerular Filtration Rate 43.6L, Calcium Level 9.1, Total Bilirubin 0.7, Aspartate Amino Transf (AST/SGOT) 31, Alanine Aminotransferase (ALT/SGPT) 49, Alkaline Phosphatase 112, Total P rotein 6.3L, Albumin 3.3, Albumin/Globulin Ratio 1.1L, Magnesium Level 2.4 CBC/BMP Laboratory Tests 11/23/20 20:20 11/24/20 06:18 Allergies Coded Allergies: Penicillins (Verified Allergy, Intermediate, HIVES, 11/23/20) sertraline (Verified Adverse Reaction, Intermediate, BP ISSUES(non specific), 11/23/20) Home Medications Scheduled Alprazolam (Alprazolam) 0.25 Mg Tablet, 0.25 MG PO BID, (Reported) Aspirin (Aspirin) 81 Mg Tab.chew, 81 MG PO DAILY, (Reported) Bupropion HCl (Bupropion HCl) 100 Mg Tablet, 200 MG PO DAILY, (Reported) Bupropion HCl (Bupropion HCl) 100 Mg Tablet, 100 MG PO QPM, (Reported) Calcium/Magnesium/Zinc (Etamyht-Rjmmilcaq-Bzev Tablet) 1 Each Tablet, 1 TAB PO DAILY, (Reported) Cholecalciferol (Vitamin D3) (Vitamin D3) 125 Mcg Capsule, 125 MCG PO DAILY, (Reported) Furosemide (Furosemide) 40 Mg Tablet, 40 MG PO BID, (Reported) L.acidoph/L.bulg/B.bif/S.therm (Bacid Caplet) 1 Each Tablet, 1 TAB PO BID, (Reported) Lisinopril (Lisinopril) 5 Mg Tablet, 5 MG PO DAILY, (Reported) Multivitamins (Thera M Plus Tablet) 1 Each Tablet, 1 TAB PO DAILY, (Reported) Mv-Min/FA/Vit K/Lycop/Lut/Zeax (Ocuvite Eye Plus Multi Tablet) 1 Each Tablet, 1 TAB PO DAILY, (Reported) Omeprazole (Omeprazole) 20 Mg Capsule.dr, 20 MG PO QPM, (Reported) AROUND DINNERTIME Spironolactone (Spironolactone) 25 Mg Tablet, 25 MG PO DAILY, (Reported) Umeclidinium Brm/Vilanterol Tr (Anoro Ellipta 62.5-25 Mcg INH) 1 Each Blst.w.dev, 1 PUFF INH DAILY, (Reported) Vitamin B Complex (Vitamin B Complex) 1 Each Tablet, 1 TAB PO DAILY, (Reported) [Klor Con Ef 25MEQ] , 25 MEQ PO DAILY, (Reported) MIX WITH WATER Scheduled PRN Albuterol Sulfate (Proair Hfa) 8.5 Gm Hfa.aer.ad, 2 PUFF INH QID PRN for SHORTNESS OF BREATH, (Reported) Calcium Carb/Magnesium Hydrox (Antacid 1000-200 mg Tab Chew) 1 Each Tab.chew, 2 CHW PO 5XD PRN for HEARTBURN/INDIGESTION, (Reported) Ipratropium/Albuterol Sulfate (Combivent Respimat 20-100 Mcg) 4 Gm Mist.inhal, 1 PUFF INH QID PRN for SHORTNESS OF BREATH, (Reported) Simethicone (Gas-X) 125 Mg Capsule, 125 MG PO QID PRN for GAS PAIN, (Reported) Attending Note Attending Note I interviewed Ms. Dewey and came back and reexamined her 1 more time with an independent of Ms. Titus. She has a longstanding parastomal hernia. She has an end ileostomy and it looks like this is a permanent ileostomy as the rectal stump looks to be very stenosed due to postop radiation. She has a remote history of rectal cancer. Her ostomy is also chronically prolapsed up to the foot out from the skin. She currently has a bowel obstruction related to the parastomal hernia. Her ostomy is remaining viable though there is no much output of air and succus from it. She has some mild tenderness around the area of the ostomy but no guarding or rebound on examination. Labs are stable. I reviewed the imaging studies that are available. Including the CT abdomen pelvis done at the emergency room. Had a long discussion with her. She will be treated initially nonoperatively to see if her bowel obstruction resolves. She has been seeing somebody in [facility] for her ostomy repair and is asking about which institutions are known for hernia repair. She is not interested in hernia repair in our [facility]. If her obstruction resolves then she can follow-up as an outpatient either to her surgeon and [facility]. She is interested in establishing at the [facility] and she could choose to do so there to. If her obstruction does not resolve through to the weekend then she will need surgical intervention to resolve the obstruction also to deal with the hernia and I have discussed w ith her my algorithm and doing so. For now continue with IV fluid hydration as well as nasogastric tube decompression. I have advised the patient to ambulate in the hallways. Yary Titus Nov 24, 2020 13:04 JOHN JOINER MD Nov 29, 2020 09:47
[2020-11-24 14:00] VITALS: BP 157/90
[2020-11-24 20:50] VITALS: BP 157/89
[2020-11-25] MEDS: metroNIDAZOLE 500 MG in IV 1 EA IV SCH ×3 (01:30→18:12)
[2020-11-25] MEDS: ACETAMINOPHEN TAB 650MG DOSE (2X325MG) PO PRN (01:31)
[2020-11-25] MEDS: IPRATROPIUM 0.5MG/ALBUTEROL 2.5MG INH SOL UD 3ML (DUONEB) NEB SCH ×4 (02:35→19:14)
[2020-11-25 05:59] LABS: HEMATOCRIT 44.8 % (36.0-47.0); HEMOGLOBIN 14.8 g/dl (12.0-15.5); MEAN CORPUSCULAR HEMOGLOBIN 29.1 pg (27.0-33.0); PLATELET COUNT, AUTOMATED 292 10^3/uL (150-450); RED BLOOD COUNT 5.09 10^6/uL (4.00-5.40); WHITE BLOOD COUNT 9.5 10^3/uL (4.0-10.0)
[2020-11-25 06:00] VITALS: BP 161/89
[2020-11-25] MEDS: NS 1,000 ML IV SCH ×2 (06:02→18:46)
[2020-11-25 06:29] LABS: ALBUMIN 3.1 GM/DL (3.2-5.2); BILIRUBIN,TOTAL 0.7 MG/DL (0.2-1.0); CREATININE FOR GFR 1.27 MG/DL (0.55-1.30); GLOMERULAR FILTRATION RATE 44.4 (>45); POTASSIUM SERUM 3.7 MEQ/L (3.5-5.1); TOTAL PROTEIN 6.4 GM/DL (6.4-8.2)
[2020-11-25] MEDS: BUDESONIDE 0.5 MG/2 ML INHALATION SUSPENSION INH SCH ×2 (07:11→19:14)
[2020-11-25] MEDS: ENOXAPARIN 30MG/0.3ML SYRINGE (J1650 PER 10MG) SC SCH (09:43)
[2020-11-25] MEDS: PANTOPRAZOLE 40MG VIAL (C9113 PER 1) IV SCH (09:43)
--- NOTE | 2020-11-25 10:52 | IPNPDOC ---
Text Note Date of Service The patient was seen on 11/25/20. NOTE I followed up on Ms. Dewey today. She reports minimal to no abdominal cramping. She denies any nausea. Her ileostomy still prolapsing out but this is chronically prolapsed. Very minimal output from the ileostomy. Vital signs reviewed T-max 97.8. Blood pressure 161/89. Pulse rate 87. Respiratory rate 20. Pulse oximetry 93% at room air I/O Gastric drainage 1475 yesterday 200 mL overnight. Ileostomy output 50 mL overnight. On examination Patient looks more comfortable also more awake today. She is coughing intermittently. Reports some discomfort from the nasogastric tube. Abdominal examination: Rounded, protuberant abdomen. Still somewhat mildly distended though this is hard to ascertain. Her abdomen looks symmetric. She has about a foot of her ileostomy prolapsing which is chronic. The prolapsed ileostomy looks pink. I tried to reduce this back and only got chcf and I am feeling some tension at the ileostomy so I presume that the parastomal hernia is not fully reduced though it could also be that this is chronically within the hernia sac. Unclear if she has resolved her bowel obstruction. Laboratories WBC 9.5 Impression and plan Patient with permanent ileostomy secondary to prior rectal cancer, looks to have a subtotal colectomy with left over sigmoid and rectum. Longstanding parastomal hernia, ileostomy prolapse Now with small bowel obstruction most likely related to the parastomal hernia I spent 45 minutes in the room. I had a long discussion with her, her and her son on the phone. I discussed with him my plan of care which is to continue with nasogastric tube decompression through the weekend up until we see some evidence of resolution of the bowel obstruction, not necessarily of the protrusion or prolapse of the ileostomy. She is markedly improved with a nasogastric tube decompression and she appears to be well decompressed. I am not sure yet whether her obstruction has fully resolved. Her if her obstruction has not resolved through the weekend we will plan for surgery. Primary role of surgery is to resolve the obstruction and only secondarily to repair the hernia. We had long discussions on the complexities of parastomal hernia repair. They are wishing for a more permanent fix of the hernia repair which I think they are alluding to allow an abdominal wall reconstruction. I told him that in terms of urgency or emergency, I do not and generally the surgical community would not do a formal abdominal wall reconstruction emergently or urgently. She is voicing desire to be transferred to [facility]. With long discussions with were good hernia clinics are done. I given the name of Zac East in [facility], Troy Hagan in [facility] and Sreedhar Luis in [facility] which are more prominent names in the abdominal reconstruction world. They seem to have the impression that she could be transferred to those institutions, meets those names and be considered for an emergent or urgent abdominal wall reconstruction and I told him that probably not. She probably will be admitted to the general surgery service and the treatment usually is the same. In any case I think she is improving. Plan remains the same. We will continue to follow her up while she is here. If she does improve she can choose to go to those names for those institutions for an outpatient interval follow- up. VS,Fishbone, I+O VS, Fishbone, I+O Laboratory Tests 11/25/20 05:37 Vital Signs Date Time Temp Pulse Resp B/P (MAP) Pulse Ox O2 Delivery O2 Flow Rate FiO2 11/25/20 06:00 97.8 87 20 161/89 (113) 93 Room Air I&O- Last 24 Hours up to 6 AM 11/25/20 05:59 Intake Total 1970 ml Output Total 2024 ml Balance -55 ml JOHN WOODS MD Nov 25, 2020 10:52
[2020-11-25] MEDS: LevoFLOXacin IV 750 MG in IV 1 EA IV SCH (11:06)
--- NOTE | 2020-11-25 12:46 | IPNPDOC ---
Subjective Date Seen The patient was seen on 11/25/20. Subjective Chief Complaint/HPI Mrs. Dewey is a 70-year-old female with PMH: rectal CA, multiple abdominal surgery, ileostomy prolapse, hernia and mucoid fistula presented to the ER with complaints of increasing abdominal pain and decreased ileostomy output with some nausea. She underwent CT a/p and found to have SBO and general surgery, Dr. Joiner, was consulted. Pt reported she has a hx of SBOs, last was a few years ago at [facility] and it resolved after bowel rest. Today, Pt reports she is feeling improvement in pain, "almost none there". She reports she is still "exhausted", but describes this as not uncommon for her given with too many things going on, she gets "worn out" easily. She describes a gradual decline over the years and reports she may need to use the walker with seat in it she had to use in past after a recovery- she is amenable to PT as she does not want to become more deconditioned. She reports interest in having the ostomy reversed given the SBO and discussing with surgery her wishes to possible transfer to [place]. Pt denies meadows, fever/ chills, sinus congestion, sore throat, sob, palpitations, or chest pain. Events since last encounter 200ml brown liquid to NGT canister, 50ml ostomy output General: Reports: Normal Appetite; Denies: Chills, Night Sweats, Fatigue, Malaise Constitutional: Reports: Fatigue Eyes: Denies: Pain, Vision change ENT: Denies: Head Aches, Ear Pain, Dysphagia Skin: Denies: Rash, Lesions, Breakdown Pulmonary: Denies: Dyspnea, Cough Cardiovascular: Denies: Chest Pain, Palpitations, Orthopnea, Paroxysmal Noc. Dyspnea, Lt Headedness Gastrointestinal: Reports: Abdominal Pain, Constipation Genitourinary: Denies: Dysuria, Frequency, Incontinence, Retention Hematologic: Denies: Bruising, Bleeding Excessively Musculoskeletal: Denies: Neck Pain, Back Pain, Joint Pain, Muscle Pain, Spasms Neurological: Denies: Weakness, Numbness, Change in speech, Confusion Psych: Reports: Anxiety Objective Physical Examination General Exam: Positive: Cooperative, No Acute Distress, Other (drowsy, able to arouse easily and response very appropriately, ox3) Eye Exam: Positive: PERRLA, Conjunctiva & lids normal, EOMI; Negative: Sclera icteric ENT Exam: Positive: Atraumatic, Mucous membr. moist/pink, Pharynx Normal Neck Exam: Positive: Supple; Negative: JVD, thyromegaly Chest Exam: Positive: Clear to auscultation, Normal air movement Heart Exam: Positive: Rate Normal, Regular Rhythm, Normal S1, Normal S2; Negative: Murmurs, Rubs Abdomen Exam: Positive: BS Hypoactive (increased BS compared to yesterday), Soft (obese body habitus; ileostomy present with prolapsed stoma, stoma pink/ moist, minor drainage serosanguinous to surrounding gauze of the ostomy, abdominal binder in place), Tenderness (minimal ), Other Female Exam: Positive: Nl Ext Genitalia; Negative: Lesions, Discharge, Odor, Tenderness Extremity Exam: Positive: Normal pulses; Negative: Clubbing, Cyanosis, Edema Skin Exam: Positive: Nl turgor and temperature, Other skin issue (no obvious moisture breakdown noted surrounding visualized portions of abdominal skin around ostomy site); Negative: Rash, Breakdown Neuro Exam: Positive: Normal Speech, Strength at 5/5 X4 ext, Normal Tone Psych Exam: Positive: Mental status NL, Mood NL, Oriented x 3 Assessment /Plan Plan/VTE VTE Prophylaxis Ordered?: Yes Plan IVF: Continue Diet: Continue Current (NPO) Activity: Continue Current Therapy: PT (therapeutic purposes) Diagnostics: Repeat Labs in AM Anticipated Discharge: Home 1. Small bowel obstruction with multiple transition points in the parastomal hernia: - Pt improving clinical symptoms. - Plan for continued conservative management. - Gen. surgery recommendations appreciated. Please see surgery progress note regarding recommendations for [facility] transfer. - [facility] was contacted per patient request today transfer center number is [phone]; Informed that there is a delay for availability and thus a lateral transfer would be at earliest accepted next week. - Patient thankfully improving symptoms; she may be discharged ready at that point. - Information relayed to patient and determination regarding transfer cost and inpatient versus outpatient route to be determined. - Patient will be kept nothing by mouth and NG tube clamping trial for today. - If patient has recurrence of symptoms will reinitiate decompression with NG tube to low intermittent suction. - Continue patient on IV fluids. - As needed antiemetics and pain medications. - Patient was educated regarding judicious use of pain medication given the risk and benefits of side effects with small bowel obstruction and opiates. - Unfortunately, patient unable to take Xanax p.o. given above was educated regarding Ativan IV as needed until/if she is able to tolerate diet trial. 2. Chronic kidney disease stage III with baseline creatinine unclear. Cr 1.27 this AM. Will continue to hold home Lasix and spironolactone. Continue on gentle IV fluids with monitoring for fluid overload or hypertension. Avoid nephrotoxic medications. Monitor intake and output closely. BMP in AM. 3. Hyperkalemia. Hold home potassium supplementation. Patient is continued on IV fluids. K3.7 this a.m. 4. Leukocytosis secondary to small bowel obstruction: Improved WBCs normalized at 9.5 this AM. Continue plan as outlined above. Patient fortunately without systemic signs of infection (she remains afebrile, not tachycardic). Continue Levaquin and Flagyl for intra-abdominal coverage. Monitor for any signs symptoms of worsening infection. CBC with differential in AM. De-escalate antibiotics accordingly. 5. Hypertension. Monitor with routine vital signs and adjust medications as needed based on trends. P.o. medications on hold given above. Plan for IV blood pressure control if patient systolic blood pressure greater than 160 for the interim while patient is n.p.o. patient would need to transfer to another unit if required IV blood pressure control. 6. Gastroesophageal reflux disease. IV Protonix. 7. Anxiety. Ativan IV as needed with parameters. Patient was educated regarding holding p.o. Xanax at present 8. Hyponatremia. IV fluids. Na improved to 141. BMP in a.m. 9. Transaminitis with small bowel obstruction. Resolving, AST improved to 29, ALT 70, alk phos 122, bili 0.7 10. DVT prophylaxis: Lovenox. 11. Incidental CT abdomen pelvis finding of nonspecific right adrenal nodule, 1.3 cm: Plan for outpatient PCP follow-up for imaging such as an adrenal MRI. Patient without hypertensive urgency, tachycardia or diaphoretic state. Disposition Transfer to [facility] per patient request versus pending clinical improvement discharge home and follow-up outpatient VS, I&O, 24H, Fishbone Vital Signs/I&O Vital Signs Date Time Temp Pulse Resp B/P (MAP) Pulse Ox O2 Delivery O2 Flow Rate FiO2 11/25/20 06:00 97.8 87 20 161/89 (113) 93 Room Air I&O- Last 24 Hours up to 6 AM 11/25/20 06:00 Intake Total 2045 ml Output Total 2025 ml Balance 20 ml Laboratory Data 24H LABS Laboratory Tests 2 11/25/20 05:37: Nucleated Red Blood Cells % (auto) 0.0, Anion Gap 8, Glomerular Filtration Rate 44.4L, Lactic Acid Level 1.1, Calcium Level 9.0, Total Bilirubin 0.7, Aspartate Amino Transf (AST/SGOT) 29, Alanine Aminotransferase (ALT/SGPT) 70, Alkaline Phosphatase 122H, Total Creatine Kinase 91, Total Protein 6.4, Albumin 3.1L, Albumin/Globulin Ratio 0.9L CBC/BMP Laboratory Tests 11/25/20 05:37 Past Medical History Past Surgical History: Rectal cancer with colon resection/ileostomy 2005. Completed Chemo/radiation. Reversal of ostomy 2006 complicated by persistent diarrhea. 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 Mucoid fistula. Attending Note Attending Note I, Baldev Dhillon, have independently examined this patient and performed my own physical exam, as well as reviewed the documentation and edited where necessary. MARILEE LAND NP Nov 25, 2020 10:47 BALDEV DHILLON MD Nov 25, 2020 13:51
[2020-11-25 22:00] VITALS: BP 161/81
[2020-11-26] MEDS: ACETAMINOPHEN TAB 650MG DOSE (2X325MG) PO PRN (00:24)
[2020-11-26] MEDS: metroNIDAZOLE 500 MG in IV 1 EA IV SCH ×3 (01:04→18:42)
[2020-11-26] MEDS: NS 1,000 ML IV SCH (01:04)
[2020-11-26] MEDS: IPRATROPIUM 0.5MG/ALBUTEROL 2.5MG INH SOL UD 3ML (DUONEB) NEB SCH ×4 (01:41→19:07)
[2020-11-26 06:00] VITALS: BP 152/91
[2020-11-26 06:32] LABS: ALBUMIN 3.2 GM/DL (3.2-5.2); BILIRUBIN,TOTAL 0.5 MG/DL (0.2-1.0); CALCIUM LEVEL 8.3 MG/DL (8.8-10.2); CREATININE FOR GFR 1.22 MG/DL (0.55-1.30); GLOMERULAR FILTRATION RATE 46.5 (>45); POTASSIUM SERUM 3.4 MEQ/L (3.5-5.1); TOTAL PROTEIN 6.2 GM/DL (6.4-8.2)
[2020-11-26 06:49] LABS: BASO % 0.5 % (0.0-1.0); EOS % 0.3 % (0.0-3.0); HEMATOCRIT 44.6 % (36.0-47.0); HEMOGLOBIN 14.7 g/dl (12.0-15.5); LYMPH # 0.9 10^3/uL (1.5-5.0); LYMPH % 9.8 % (24.0-44.0); MEAN CORPUSCULAR HEMOGLOBIN 29.3 pg (27.0-33.0); MONO % 11.5 % (2.0-8.0); NEUTROPHILS # 6.7 10^3/uL (1.5-8.5); NEUTROPHILS % 77.6 % (36.0-66.0); PLATELET COUNT, AUTOMATED 284 10^3/uL (150-450); RED BLOOD COUNT 5.01 10^6/uL (4.00-5.40); WHITE BLOOD COUNT 8.7 10^3/uL (4.0-10.0)
[2020-11-26] MEDS: BUDESONIDE 0.5 MG/2 ML INHALATION SUSPENSION INH SCH ×2 (07:17→19:07)
[2020-11-26] MEDS: KCL 10MEQ/100ML SWI (KRUN) 10 MEQ in IV 1 EA IV SCH ×5 (08:31→15:40)
[2020-11-26] MEDS: PANTOPRAZOLE 40MG VIAL (C9113 PER 1) IV SCH (08:32)
[2020-11-26] MEDS: ENOXAPARIN 30MG/0.3ML SYRINGE (J1650 PER 10MG) SC SCH (08:32)
[2020-11-26] MEDS ORDERED: FUROSEMIDE 20MG/2ML VIAL (J1940) IV SCH (09:00)
[2020-11-26] MEDS: ALPRAZolam 0.25 MG TAB PO SCH ×4 (10:17→22:29)
--- NOTE | 2020-11-26 10:42 | IPNPDOC ---
Text Note Date of Service The patient was seen on 11/26/20. NOTE Subjective: Patient is a 70-year-old female with a PMHx of Multiple abdominal surgeries 2/2 Rectal CA (w/ ileostomy prolapse, hernia, mucoid fistula), HTN, COPD w/ Active nicotine dependence, Depression / Anxiety, CKD3, GERD who presented to the hospital initially because of abdominal pain, decrease of her ostomy and nausea. Patient was admitted to the hospital service after she was found to have small bowel obstruction. General surgery was called on consultation. Patient was seen and examined at the bedside. Currently patient reports that she has had an uneventful evening. She denies any chest pain, shortness breath, palpitations. NG tube remains in place and continues to drain. Patient denies any abdominal discomfort, however, has not had any significant upper from her ostomy. Objective: Vitals (See below) General: Lying in bed, appears comfortable, AAOx3 HEENT: NC, AT CVS: RRR, +S1S2 Lungs: Fair air entry b/l, no evidence of wheezing, rales or rhonchi Abdomen: Soft, nondistended, no significant tenderness right lower quadrant with ileostomy prolapse noted, left lower quadrant with mucous fistula Extremities: - Edema, - Calf tenderness Imaging: CT abdomen / pelvis 11/23: 1. Distal small bowel obstruction with transition points in a peristomal hernia in the right lower quadrant. 2. Incidental duodenal diverticulum. 3. Nonspecific right adrenal nodule. Comparison with any prior imaging or follow-up adrenal MRI is recommended. Assessment and plan: Small bowel obstruction with multiple transition points in the parastomal hernia - Clinically patient reports that she feels relatively well. Has not expressed any further nausea since NG tube placement - NG tube continues to drain - Abdomen is benign without any tenderness; however ostomy is without any significant output - Hemodynamically stable and afebrile - No leukocytosis - c/w NG tube - c/w Levofloxacin and Flagyl (Day #3) - Will DC IV fluids; will consider starting PPN nutrition and resuming diuretics - [facility] was contacted yesterday ([phone]) at patient request; no beds available - earliest possibility if for next week - General surgery on consultation; c/w conservative measures for now CKD3 - Cr appears to be at baseline - Will DC IV fluids - Will resume Furosemide s/p Hyponatremia Hypokalemia; s/p Hyperkalemia - Will supplement via IV route HTN - BP better controlled relative to yesterday - Will resume Furosemide (after potassium supplementation) Incidental CT abdomen pelvis finding of nonspecific right adrenal nodule of 1.3 cm - Plan for outpatient PCP follow-up for imaging such as an adrenal MRI Anxiety / Depression - Will hold Xanax (re: NPO) - c/w Ativan PRN s/p Transaminitis GI prophylaxis - c/w Protonix DVT prophylaxis - c/w Lovenox Disposition: - Awaiting clinical improvement VS,Anahi, I+O VS, Anahi, I+O Laboratory Tests 11/26/20 05:50 11/26/20 05:55 Vital Signs Date Time Temp Pulse Resp B/P (MAP) Pulse Ox O2 Delivery O2 Flow Rate FiO2 11/26/20 06:00 97.9 96 19 152/91 (111) 94 Room Air I&O- Last 24 Hours up to 6 AM 11/26/20 06:00 Intake Total 910 ml Output Total 1825 ml Balance -915 ml JHONNY CHOWDHURY MD Nov 26, 2020 10:42
[2020-11-26] MEDS: LevoFLOXacin IV 750 MG in IV 1 EA IV SCH (11:59)
[2020-11-26] MEDS: buPROPion 100 MG TAB PO SCH ×3 (13:08→18:42)
[2020-11-26 14:00] VITALS: BP 162/84
--- NOTE | 2020-11-26 17:05 | IPN ---
PROGRESS NOTE DATE: 11/26/2020 SUBJECTIVE: Patient continues to have some nasogastric (NG) tube output. Yesterday still had a fair amount of bilious output. Really has not had much out of her ostomy site. Spent a while this morning reducing her ostomy and overall, she states this is the most it has been reduced in quite a while. Her white count has normalized and she is complaining of some abdominal distention, but not complaining of any abdominal pain or discomfort at this time. PHYSICAL EXAMINATION: Her ostomy is mostly reducible now. Her peristomal hernia is also reducible. Unfortunately, because of her morbid obesity, it is somewhat difficult to tell if things have completely reduced underneath the surface, but I am not feeling any bulging or masses in this area and definitely nontender in this area. IMPRESSION/PLAN: Patient has had some slow but progressive improvement. I anticipate that, given this reduction of the small bowel, that I would not be surprised if she starts to resolve her small bowel obstruction. If she does, then we will clamp the tube and check residuals and then progress to the next step, which would be starting her on a clear liquid diet. If she has persistent high output over the next 24-48 hours, I would recommend proceeding with an upper GI with small bowel followthrough to rule out persistent obstruction and we can plan that for probably Saturday if she is still here. Otherwise, we will continue with current treatment at this time.
[2020-11-26 22:00] VITALS: BP 163/84
[2020-11-27] MEDS: metroNIDAZOLE 500 MG in IV 1 EA IV SCH ×3 (01:37→18:07)
[2020-11-27 01:40] VITALS: BP 166/82
[2020-11-27 01:44] VITALS: BP 166/80
[2020-11-27] MEDS: **hydrALAZINE** 10 MG TAB PO PRN (01:44)
[2020-11-27] MEDS: IPRATROPIUM 0.5MG/ALBUTEROL 2.5MG INH SOL UD 3ML (DUONEB) NEB SCH ×4 (02:40→19:45)
[2020-11-27 06:00] VITALS: BP 168/82
[2020-11-27 06:27] LABS: BASO # 0.1 10^3/uL (0.0-0.2); BASO % 0.5 % (0.0-1.0); EOS # 0.1 10^3/uL (0.0-0.5); EOS % 0.6 % (0.0-3.0); HEMOGLOBIN 14.5 g/dl (12.0-15.5); LYMPH # 0.8 10^3/uL (1.5-5.0); LYMPH % 7.5 % (24.0-44.0); MEAN CORPUSCULAR HEMOGLOBIN 28.9 pg (27.0-33.0); MEAN CORPUSCULAR HGB CONC 32.2 g/dl (32.0-36.5); MEAN CORPUSCULAR VOLUME 89.6 fl (80.0-96.0); MONO % 9.5 % (2.0-8.0); NEUTROPHILS # 8.6 10^3/uL (1.5-8.5); NEUTROPHILS % 81.3 % (36.0-66.0); PLATELET COUNT, AUTOMATED 262 10^3/uL (150-450); RED BLOOD COUNT 5.02 10^6/uL (4.00-5.40); WHITE BLOOD COUNT 10.5 10^3/uL (4.0-10.0)
[2020-11-27 06:45] LABS: CALCIUM LEVEL 9.1 MG/DL (8.8-10.2); CREATININE FOR GFR 1.11 MG/DL (0.55-1.30); GLOMERULAR FILTRATION RATE 51.9 (>45); MAGNESIUM LEVEL 2.1 MG/DL (1.8-2.4); POTASSIUM SERUM 3.4 MEQ/L (3.5-5.1)
[2020-11-27] MEDS ORDERED: KCL 10MEQ/100ML SWI (KRUN) 10 MEQ in IV 1 EA IV SCH (07:00)
[2020-11-27] MEDS: BUDESONIDE 0.5 MG/2 ML INHALATION SUSPENSION INH SCH ×2 (07:57→19:45)
[2020-11-27] MEDS ORDERED: FUROSEMIDE 20MG/2ML VIAL (J1940) IV SCH (09:00)
--- NOTE | 2020-11-27 09:29 | IPNPDOC ---
Text Note Date of Service The patient was seen on 11/27/20. NOTE Subjective: Patient is a 70-year-old female with a PMHx of Multiple abdominal surgeries 2/2 Rectal CA (w/ ileostomy prolapse, hernia, mucoid fistula), HTN, COPD w/ Active nicotine dependence, Depression / Anxiety, CKD3, GERD who presented to the hospital initially because of abdominal pain, decrease of her ostomy and nausea. Patient was admitted to the hospital service after she was found to have small bowel obstruction. General surgery was called on consultation. Patient was seen and examined at the bedside. Yesterday general surgery was able to reduce the prolapse ostomy. Patient denies any abdominal pain. This morning, has not spent any nausea, NG tube remains in place and continues to drain. She has not spent any chest pain, shortness breath or palpitations. Still reports some cough. No urinary discomfort. Objective: Vitals (See below) General: Patient remains laying in bed, appears to be comfortable, not in any acute distress HEENT: Normocephalic and atraumatic, +NG tube CVS: +S1S2 Lungs: Air entry appears to be fair bilaterally without any auscultated crackles, wheezing or rhonchi Abdomen: Again, her abdomen is soft, there does not appear to be any distention or tenderness. Right lower quadrant with ostomy. No significant prolapse noted. Bowel sounds still appear high pitched with tinkling Extremities: LE are without edema Imaging: CT abdomen / pelvis 11/23: 1. Distal small bowel obstruction with transition points in a peristomal hernia in the right lower quadrant. 2. Incidental duodenal diverticulum. 3. Nonspecific right adrenal nodule. Comparison with any prior imaging or follow-up adrenal MRI is recommended. Assessment and plan: Small bowel obstruction with multiple transition points in the parastomal hernia - Again. Patient is not experiencing any abdominal pain this morning or experiencing any nausea - NG tube set to LIS and continues to drain - Abdomen with reduction of prolapsed ostomy noted - No leukocytosis - c/w NG tube - c/w Levofloxacin and Flagyl (Day #4) - Will start PPN nutrition today; s/p IV fluids - [facility] was contacted ([phone]) at patient request; no beds available - earliest possibility if for next week - General surgery on consultation; c/w conservative measures for now and will get small bowel follow through tomorrow CKD3 - Cr appears to be at baseline - s/p IV fluids - c/w Furosemide s/p Hyponatremia Hypokalemia; s/p Hyperkalemia - Will again supplement via IV route HTN - BP better controlled relative to yesterday - c/w Furosemide (after potassium supplementation) Incidental CT abdomen pelvis finding of nonspecific right adrenal nodule of 1.3 cm - Plan for outpatient PCP follow-up for imaging such as an adrenal MRI Anxiety / Depression - Will hold Xanax (re: NPO) - c/w Ativan PRN s/p Transaminitis GI prophylaxis - c/w Protonix DVT prophylaxis - c/w Lovenox Disposition: - Awaiting clinical improvement VS,Anahi, I+O VS, Anahi I+O Laboratory Tests 11/27/20 05:57 Vital Signs Date Time Temp Pulse Resp B/P (MAP) Pulse Ox O2 Delivery O2 Flow Rate FiO2 11/27/20 06:00 98.0 87 18 168/82 (110) 95 Room Air I&O- Last 24 Hours up to 6 AM 11/27/20 05:59 Intake Total 405 ml Output Total 1025 ml Balance -620 ml JHONNY CHOWDHURY MD Nov 27, 2020 09:29
[2020-11-27] MEDS: ENOXAPARIN 30MG/0.3ML SYRINGE (J1650 PER 10MG) SC SCH (10:35)
[2020-11-27] MEDS: ALPRAZolam 0.25 MG TAB PO SCH ×2 (10:35→20:26)
[2020-11-27] MEDS: buPROPion 100 MG TAB PO SCH ×2 (10:35→18:07)
[2020-11-27] MEDS: PANTOPRAZOLE 40MG VIAL (C9113 PER 1) IV SCH (10:40)
[2020-11-27] MEDS: LevoFLOXacin IV 750 MG in IV 1 EA IV SCH (12:28)
[2020-11-27 14:00] VITALS: BP 162/80
--- NOTE | 2020-11-27 14:06 | IPN ---
PROGRESS NOTE DATE: 11/27/2020 SUBJECTIVE: Patient's prolapsing hernia/ostomy was reduced yesterday and since that time, she has actually been keeping this in relatively well. Unfortunately, she still is not putting anything significant out of the ileostomy. She does not feel nauseated. No vomiting. Her nasogastric (NG) tube output is still relatively high. She has had no fevers or chills. PHYSICAL EXAMINATION: ABDOMEN: Mildly distended and nontender. No guarding. No rebound. No peritoneal signs are appreciated. IMPRESSION/PLAN: Patient has evidence of small bowel obstruction. At this point, we are not seeing resolution. I would recommend a small bowel follow through tomorrow and I agree that given it has been a prolonged hospitalization this far, I would recommend total parenteral nutrition (TPN) as you have stated and plan on placing a peripherally inserted central catheter (PICC) line tomorrow if she does not show any resolution/improvement of her bowel obstruction.
[2020-11-27] MEDS: KCL 10MEQ/100ML SWI (KRUN) 10 MEQ in IV 1 EA IV SCH ×2 (14:25→15:30)
[2020-11-27] MEDS ORDERED: AMINO AC/ELECTROLYTE/DEX/CALC 1,000 ML IV SCH (18:00)
[2020-11-27] MEDS: HumaLOG INSULIN (NovoLOG) PER UNIT SC SCH ×2 (18:00→23:59)
[2020-11-27] MEDS ORDERED: FAT EMULSION IV 20% 500 ML IV SCH (18:00)
[2020-11-27 22:00] VITALS: BP 148/90
[2020-11-28] MEDS: metroNIDAZOLE 500 MG in IV 1 EA IV SCH ×3 (02:00→19:04)
[2020-11-28] MEDS: IPRATROPIUM 0.5MG/ALBUTEROL 2.5MG INH SOL UD 3ML (DUONEB) NEB SCH ×4 (03:14→19:48)
[2020-11-28 06:00] VITALS: BP 146/62
[2020-11-28 06:13] LABS: BASO # 0.1 10^3/uL (0.0-0.2); BASO % 0.5 % (0.0-1.0); EOS # 0.1 10^3/uL (0.0-0.5); EOS % 0.8 % (0.0-3.0); HEMATOCRIT 45.2 % (36.0-47.0); HEMOGLOBIN 14.8 g/dl (12.0-15.5); LYMPH # 0.9 10^3/uL (1.5-5.0); LYMPH % 7.7 % (24.0-44.0); MEAN CORPUSCULAR HGB CONC 32.7 g/dl (32.0-36.5); MEAN CORPUSCULAR VOLUME 88.6 fl (80.0-96.0); MONO # 1.2 10^3/uL (0.0-0.8); MONO % 10.1 % (2.0-8.0); NEUTROPHILS # 9.3 10^3/uL (1.5-8.5); NEUTROPHILS % 80.1 % (36.0-66.0); PLATELET COUNT, AUTOMATED 301 10^3/uL (150-450); WHITE BLOOD COUNT 11.6 10^3/uL (4.0-10.0)
[2020-11-28 06:28] LABS: CALCIUM LEVEL 9.1 MG/DL (8.8-10.2); CREATININE FOR GFR 1.18 MG/DL (0.55-1.30); GLOMERULAR FILTRATION RATE 48.3 (>45); POTASSIUM SERUM 3.5 MEQ/L (3.5-5.1)
[2020-11-28] MEDS: HumaLOG INSULIN (NovoLOG) PER UNIT SC SCH ×3 (06:55→19:04)
[2020-11-28] MEDS: BUDESONIDE 0.5 MG/2 ML INHALATION SUSPENSION INH SCH ×2 (07:07→19:48)
[2020-11-28] MEDS ORDERED: GASTROGRAFIN SOLUTION 30ML (Q9963) As Ordered ONE (09:08)
[2020-11-28] MEDS ORDERED: ONDANSETRON 4MG/2ML VIAL IV PRN (11:50)
[2020-11-28] MEDS: PANTOPRAZOLE 40MG VIAL (C9113 PER 1) IV SCH (11:58)
[2020-11-28] MEDS: ENOXAPARIN 30MG/0.3ML SYRINGE (J1650 PER 10MG) SC SCH (11:59)
[2020-11-28] MEDS: LevoFLOXacin IV 750 MG in IV 1 EA IV SCH (13:19)
--- NOTE | 2020-11-28 13:49 | IPNPDOC ---
Text Note Date of Service The patient was seen on 11/28/20. NOTE Subjective: Patient is a 70-year-old female with a PMHx of Multiple abdominal surgeries 2/2 Rectal CA (w/ ileostomy prolapse, hernia, mucoid fistula), HTN, COPD w/ Active nicotine dependence, Depression / Anxiety, CKD3, GERD who presented to the hospital initially because of abdominal pain, decrease of her ostomy and nausea. Patient was admitted to the hospital service after she was found to have small bowel obstruction. General surgery was called on consultation. Patient was seen and examined at the bedside. Patient is has partially completed her small bowel follow through study. She reports significant nausea and her NG tube will be set to LIS now and remiander of study will be aborted. Denies any abdominal pain, vomiting, or any significant output from her ostomy. She denies any urinary discomfort. Objective: Vitals (See below) General: Patient is sitting up in bed, appears nauseated, but not in any acute distress, awake / alert, oriented x 3 HEENT: AT, NC, +NG tube (clamped; will be set to LIS) CVS: +S1S2 Lungs: There is fair air entry b/l, no wheezing / rales / rhonchi Abdomen: Abdomen is soft, ND, no significant tenderness, Hypoactive bowel sounds, RLQ with ostomy (prolapse, no significant output) Extremities: No edema Imaging: CT abdomen / pelvis 11/23: 1. Distal small bowel obstruction with transition points in a peristomal hernia in the right lower quadrant. 2. Incidental duodenal diverticulum. 3. Nonspecific right adrenal nodule. Comparison with any prior imaging or follow-up adrenal MRI is recommended. Assessment and plan: Small bowel obstruction with multiple transition points in the parastomal hernia - NG tube is clamped while completing the small bowel follow through study; reports nausea - Will abort study and set NG tube to LIS - Abdomen w/ RLQ ostomy and prolapse - Mild leukocytosis again noted - c/w NG tube - c/w Levofloxacin and Flagyl (Day #5) - Will have PICC line placed and patient will be started on TPN - [facility] was contacted ([phone]) again this morning; --> Patient does not have established care there and transfer is requested by patient --> Patient was accepted on waiting list; however was informed that bed may not be available for a while - noted that it was in her best interest to have surgery there - [facility] center was contacted ([phone]); recommended contacting Dr. Veena Angel M.D; contacted directly ([phone]) this morning --> Spoke with Dr. Ji office; Accepted by Surgeon (Dr. Parvez Grider) to [facility], however will need insurance pre-authorization before transfer --> Discussed with case management; will likely be denied as services can be provided locally - General surgery on consultation; case discussed - tentatively on schedule for OR on Saturday; however patient wants to consider transfer to other facility CKD3 - Cr appears to be at baseline - s/p IV fluids - s/p Furosemide s/p Hyponatremia s/p Hypokalemia; s/p Hyperkalemia HTN - BP better controlled relative to yesterday - s/p Furosemide Incidental CT abdomen pelvis finding of nonspecific right adrenal nodule of 1.3 cm - Plan for outpatient PCP follow-up for imaging such as an adrenal MRI Anxiety / Depression - Will hold Xanax (re: NPO) - c/w Ativan PRN s/p Transaminitis GI prophylaxis - c/w Protonix DVT prophylaxis - c/w Lovenox Disposition: - Awaiting clinical improvement Anahi KAPLAN I+O VSAnahi I+O Laboratory Tests 11/28/20 05:39 Vital Signs Date Time Temp Pulse Resp B/P (MAP) Pulse Ox O2 Delivery O2 Flow Rate FiO2 11/28/20 06:00 98.7 96 19 146/62 (90) 94 Room Air I&O- Last 24 Hours up to 6 AM 11/28/20 06:00 Intake Total 960 ml Output Total 1200 ml Balance -240 ml JHONNY CHOWDHURY MD Nov 28, 2020 13:49
[2020-11-28] MEDS ORDERED: LIDOCAINE 1% MDV 20ML VIAL As Ordered ONE (15:07)
[2020-11-28 16:30] VITALS: BP 160/88
--- NOTE | 2020-11-28 17:29 | REP ---
PROCEDURE NAME: PICC LINE INSERTION W/SITERITE CLINICAL INFORMATION: Poor peripheral access. COMPARISON: None. PROCEDURE DESCRIPTION: The procedure was performed by KEI Kennedy, under the direct supervision of Dr. Ledesma. The risks and benefits of the procedure were explained to the patient and an informed consent was obtained both verbally and written. Directly prior to the start of the procedure a formal time-out was completed in the procedure room. The right basilic vein was localized using ultrasound guidance. The skin was prepped and draped in sterile fashion. One mL of 1% lidocaine 10 mg/mL was used as a local anesthetic. Using ultrasound guidance the right basilic vein was cannulated, and a 0.018 guidewire was inserted and advanced to the level of SVC using fluoroscopic guidance. The needle was removed and a 5.0 German dilator and peel-away sheath was inserted over the guidewire. A 5 German double lumen catheter was cut to a length of 40 cm. The dilator was removed and the catheter was inserted over the guidewire with the tip ending at the level of the SVC. The peel-away sheath was removed and the catheter was flushed with heparinized saline as per hospital protocol. The catheter was affixed to the skin and a sterile dressing was applied. The patient tolerated the procedure well and there were no immediate complications. CONCLUSION: PICC line insertion into the right basilic vein. 0.1 minutes of fluoroscopy time was utilized for this procedure. Some fluoroscopic images are performed with last image hold technology. These images require no additional radiation. <Electronically signed by Nadira Lopez > 11/28/20 1620 <Electronically signed by Elmo Ledesma > 11/28/20 [id number]
--- NOTE | 2020-11-28 17:32 | REP ---
INDICATION: sbo?, use ng please. COMPARISON: None. TECHNIQUE: The procedure was performed under the direct supervision of Dr. Ledesma. The images were reviewed with Dr. Ledesma. A 50/50 solution of Gastrografin and water was instilled through the NG tube.. 0 minutes of fluoro time was utilized for this procedure. 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 There are surgical clips noted in the right upper quadrant. There is an NG tube in place. There are bowel sutures noted in the pelvis. There is an ostomy overlying the right abdomen. There are multiple dilated air-filled loops of small bowel.. After the contrast was administered multiple surgical films were obtained. At approximately the 3 hour linda most of the contrast remains in the stomach. There is some advancement into the proximal jejunum. The for the patient came back to the department for the next film, her NG tube was connected to suction effectively ending the exam. IMPRESSION: Limited study as the patient's NG tube was connected to suction which effectively ended the exam at, approximately, the 3 hour linda. The last image demonstrates most of the contrast to still remain in the stomach. There is some advancement into the proximal jejunum. There are multiple dilated air-filled small bowel loops.. <Electronically signed by Edson Stewart > 11/28/20 1530 <Electronically signed by Elmo Ledesma > 11/28/20 1697
[2020-11-28] MEDS ORDERED: MULTIVITAMIN -ADULT INJECTION 10 ML, CR/CU/SE/MN/ZN INJ 1 ML in AMINO AC/ELECTROLYTE/DE... IV SCH (18:00)
[2020-11-28] MEDS ORDERED: FAT EMULSION IV 20% 500 ML IV SCH (18:00)
[2020-11-28] MEDS: SODIUM CHLORIDE 0.9% INJ 10 ML SYR IV SCH (20:23)
[2020-11-29] MEDS: HumaLOG INSULIN (NovoLOG) PER UNIT SC SCH ×4 (00:01→18:28)
[2020-11-29 01:46] VITALS: BP 160/84
[2020-11-29] MEDS: IPRATROPIUM 0.5MG/ALBUTEROL 2.5MG INH SOL UD 3ML (DUONEB) NEB SCH ×4 (02:00→20:33)
[2020-11-29] MEDS: metroNIDAZOLE 500 MG in IV 1 EA IV SCH ×3 (02:33→18:27)
[2020-11-29] MEDS: SODIUM CHLORIDE 0.9% INJ 10 ML SYR IV SCH ×2 (04:44→19:40)
[2020-11-29 06:04] VITALS: BP 148/74
[2020-11-29 06:20] LABS: BASO % 0.3 % (0.0-1.0); EOS % 0.3 % (0.0-3.0); HEMATOCRIT 47.5 % (36.0-47.0); HEMOGLOBIN 15.7 g/dl (12.0-15.5); LYMPH # 0.9 10^3/uL (1.5-5.0); LYMPH % 6.7 % (24.0-44.0); MEAN CORPUSCULAR HEMOGLOBIN 29.1 pg (27.0-33.0); MEAN CORPUSCULAR HGB CONC 33.1 g/dl (32.0-36.5); MONO # 1.2 10^3/uL (0.0-0.8); MONO % 9.1 % (2.0-8.0); NEUTROPHILS # 10.7 10^3/uL (1.5-8.5); NEUTROPHILS % 83.1 % (36.0-66.0); PLATELET COUNT, AUTOMATED 327 10^3/uL (150-450); WHITE BLOOD COUNT 12.9 10^3/uL (4.0-10.0)
[2020-11-29 06:52] LABS: CALCIUM LEVEL 9.6 MG/DL (8.8-10.2); CREATININE FOR GFR 1.33 MG/DL (0.55-1.30); GLOMERULAR FILTRATION RATE 42.1 (>45); MAGNESIUM LEVEL 2.4 MG/DL (1.8-2.4); POTASSIUM SERUM 3.1 MEQ/L (3.5-5.1)
[2020-11-29] MEDS: BUDESONIDE 0.5 MG/2 ML INHALATION SUSPENSION INH SCH ×2 (07:46→20:33)
--- NOTE | 2020-11-29 09:43 | IPNPDOC ---
Text Note Date of Service The patient was seen on 11/29/20. NOTE I visited Ms. Dewey today, her was on the phone during my visit. I r eviewed her weekend course and also discussed her with Dr. Dhillon yesterday. 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 Currently her stoma is not prolapsed but she has not been having any output from it. She did not tolerate the small bowel follow-through that was done yesterday as she got nauseated. Her abdomen is only mildly distended, soft. No tenderness. Her stoma is not prolapsed anymore this is pink and viable. Abdomen is symmetrical. Her obstruction is not fully resolved and she will need surgical intervention. She does not wish to have her surgery done here and efforts have been made to tr ansfer her initially to [facility] and then to [facility] where her prior colorectal surgeon is practicing. She tells me that she has been accepted to [facility] but there are a few hurdles that needs to be taken cared off and there is no scheduled transfer yet. At this point I will sign off from the case. VS,Fishbone, I+O VS, Fishbone, I+O Laboratory Tests 11/29/20 05:59 Vital Signs Date Time Temp Pulse Resp B/P (MAP) Pulse Ox O2 Delivery O2 Flow Rate FiO2 11/29/20 06:04 97.9 101 20 148/74 (98) 93 Room Air I&O- Last 24 Hours up to 6 AM 11/29/20 06:00 Intake Total 930 ml Output Total 4650 ml Balance -3720 ml JOHN WOODS MD Nov 29, 2020 09:43
[2020-11-29] MEDS: PANTOPRAZOLE 40MG VIAL (C9113 PER 1) IV SCH (09:45)
[2020-11-29] MEDS: ENOXAPARIN 30MG/0.3ML SYRINGE (J1650 PER 10MG) SC SCH (09:46)
[2020-11-29] MEDS: KCL 10MEQ/100ML SWI (KRUN) 10 MEQ in IV 1 EA IV SCH ×2 (10:48→11:58)
[2020-11-29] MEDS: ALPRAZolam 0.25 MG TAB PO SCH ×2 (12:03→21:47)
[2020-11-29] MEDS: LevoFLOXacin IV 750 MG in IV 1 EA IV SCH (13:03)
[2020-11-29 14:00] VITALS: BP 138/88
[2020-11-29] MEDS: SODIUM CHLORIDE 0.9% INJ 10 ML SYR IV PRN (14:43)
--- NOTE | 2020-11-29 15:34 | IPNPDOC ---
Subjective Date Seen The patient was seen on 11/29/20. Subjective Chief Complaint/HPI Gordy is decided she will have her surgery here. She is otherwise doing okay. She is asking to be switched back to Xanax from Ativan Objective Physical Examination General Exam: Positive: Cooperative, No Acute Distress, Other (drowsy, able to arouse easily and response very appropriately, ox3) Eye Exam: Positive: PERRLA, Conjunctiva & lids normal, EOMI; Negative: Sclera icteric ENT Exam: Positive: Atraumatic, Mucous membr. moist/pink, Pharynx Normal Neck Exam: Positive: Supple; Negative: JVD, thyromegaly Chest Exam: Positive: Clear to auscultation, Normal air movement Heart Exam: Positive: Rate Normal, Regular Rhythm, Normal S1, Normal S2; Negative: Murmurs, Rubs Abdomen Exam: Positive: BS Hypoactive (increased BS compared to yesterday), Soft (obese body habitus; ileostomy present with prolapsed stoma, stoma pink/ moist, minor drainage serosanguinous to surrounding gauze of the ostomy, abdominal binder in place), Tenderness (minimal ), Other Female Exam: Positive: Nl Ext Genitalia; Negative: Lesions, Discharge, Odor, Tenderness Extremity Exam: Positive: Normal pulses; Negative: Clubbing, Cyanosis, Edema Skin Exam: Positive: Nl turgor and temperature, Other skin issue (no obvious moisture breakdown noted surrounding visualized portions of abdominal skin around ostomy site); Negative: Rash, Breakdown Neuro Exam: Positive: Normal Speech, Strength at 5/5 X4 ext, Normal Tone Psych Exam: Positive: Mental status NL, Mood NL, Oriented x 3 Assessment /Plan Assessment Small bowel obstruction with multiple transition points in the parastomal hernia -Small bowel follow-through was not fully completed due to her developing symptoms - Abdomen w/ RLQ ostomy and prolapse - Mild leukocytosis again noted - c/w NG tube - c/w Levofloxacin and Flagyl (Day #6) -Continue TPN - [facility] was contacted ([phone]) again this morning; --> Patient does not have established care there and transfer is requested by patient --> Patient was accepted on waiting list; however was informed that bed may not be available for a while - noted that it was in her best interest to have surgery there - [facility] transfer center was contacted ([phone]); recommended contacting Dr. Veena Angel M.D; contacted directly ([phone]) this morning --> Spoke with Dr. Ji office; Accepted by Surgeon (Dr. Parvez Grider) to [facility], however will need insurance pre-authorization before transfer --> Discussed with case management; will likely be denied as services can be provided locally - General surgery on consultation; case discussed - tentatively on schedule for OR on Saturday; nurse has reached out to Gen. surgery to notify them that she is agreeable to having surgery here. CKD3 - Cr appears to be at baseline - s/p IV fluids - s/p Furosemide s/p Hyponatremia s/p Hypokalemia; s/p Hyperkalemia HTN - BP better controlled relative to yesterday - s/p Furosemide Incidental CT abdomen pelvis finding of nonspecific right adrenal nodule of 1.3 cm - Plan for outpatient PCP follow-up for imaging such as an adrenal MRI Anxiety / Depression - Will hold Xanax (re: NPO) - c/w Ativan PRN s/p Transaminitis GI prophylaxis - c/w Protonix DVT prophylaxis - c/w Lovenox Disposition: - Awaiting clinical improvement Plan/VTE VTE Prophylaxis Ordered?: Yes Plan IVF: Continue Diet: Continue Current (NPO) Activity: Continue Current Therapy: PT (therapeutic purposes) Diagnostics: Repeat Labs in AM Anticipated Discharge: Home VS, I&O, 24H, Fishbone Vital Signs/I&O Vital Signs Date Time Temp Pulse Resp B/P (MAP) Pulse Ox O2 Delivery O2 Flow Rate FiO2 11/29/20 14:00 97.4 109 20 138/88 (105) 98 Room Air I&O- Last 24 Hours up to 6 AM 11/29/20 06:00 Intake Total 930 ml Output Total 4650 ml Balance -3720 ml Laboratory Data 24H LABS Laboratory Tests 2 11/28/20 17:05: Bedside Glucose (Misc Panel) 155H 11/28/20 23:56: Bedside Glucose (Misc Panel) 161H 11/29/20 05:18: Bedside Glucose (Misc Panel) 190H 11/29/20 05:59: Immature Granulocyte % (Auto) 0.5, Neutrophils (%) (Auto) 83.1H, Lymphocytes (%) (Auto) 6.7L, Monocytes (%) (Auto) 9.1H, Eosinophils (%) (Auto) 0.3, Basophils (%) (Auto) 0.3, Neutrophils # (Auto) 10.7H, Lymphocytes # (Auto) 0.9L, Monocytes # (Auto) 1.2H, Eosinophils # (Auto) 0.0, Basophils # (Auto) 0.0, Nucleated Red Blood Cells % (auto) 0.0, Anion Gap 7L, Glomerular Filtration Rate 42.1L, Calcium Level 9.6, Magnesium Level 2.4 11/29/20 11:40: Bedside Glucose (Misc Panel) 175H CBC/BMP Laboratory Tests 11/29/20 05:59 BRENNA PICKARD MD Nov 29, 2020 15:34
[2020-11-29] MEDS ORDERED: FAT EMULSION IV 20% 500 ML IV SCH (18:00)
[2020-11-29] MEDS ORDERED: AMINO AC/ELECTROLYTE/DEX/CALC 2,000 ML IV SCH (18:00)
[2020-11-29 22:00] VITALS: BP 132/84
[2020-11-30] MEDS: HumaLOG INSULIN (NovoLOG) PER UNIT SC SCH ×3 (01:48→12:12)
[2020-11-30] MEDS: metroNIDAZOLE 500 MG in IV 1 EA IV SCH ×3 (01:48→18:00)
[2020-11-30] MEDS: IPRATROPIUM 0.5MG/ALBUTEROL 2.5MG INH SOL UD 3ML (DUONEB) NEB SCH ×4 (02:00→20:00)
[2020-11-30 06:00] VITALS: BP 136/74
[2020-11-30] MEDS: SODIUM CHLORIDE 0.9% INJ 10 ML SYR IV SCH ×2 (06:00→18:00)
[2020-11-30 06:37] LABS: BASO # 0.1 10^3/uL (0.0-0.2); BASO % 0.6 % (0.0-1.0); EOS # 0.1 10^3/uL (0.0-0.5); EOS % 0.4 % (0.0-3.0); HEMATOCRIT 48.4 % (36.0-47.0); HEMOGLOBIN 16.1 g/dl (12.0-15.5); LYMPH % 8.4 % (24.0-44.0); MEAN CORPUSCULAR HEMOGLOBIN 29.1 pg (27.0-33.0); MEAN CORPUSCULAR HGB CONC 33.3 g/dl (32.0-36.5); MEAN CORPUSCULAR VOLUME 87.5 fl (80.0-96.0); MONO # 1.4 10^3/uL (0.0-0.8); MONO % 11.2 % (2.0-8.0); NEUTROPHILS # 9.7 10^3/uL (1.5-8.5); NEUTROPHILS % 78.5 % (36.0-66.0); PLATELET COUNT, AUTOMATED 306 10^3/uL (150-450); RED BLOOD COUNT 5.53 10^6/uL (4.00-5.40); WHITE BLOOD COUNT 12.4 10^3/uL (4.0-10.0)
[2020-11-30 06:53] LABS: CALCIUM LEVEL 9.4 MG/DL (8.8-10.2); CREATININE FOR GFR 1.36 MG/DL (0.55-1.30); MAGNESIUM LEVEL 2.2 MG/DL (1.8-2.4)
[2020-11-30] MEDS: BUDESONIDE 0.5 MG/2 ML INHALATION SUSPENSION INH SCH ×2 (07:20→20:00)
[2020-11-30] MEDS ORDERED: LIDOCAINE 2% 100MG/5ML SDV (FOR ANES.) As Ordered ONE (08:53)
[2020-11-30] MEDS ORDERED: HYDROmorphone HCL 2 MG/ML 1ML VIAL (J1170) As Ordered ONE (08:53)
[2020-11-30] MEDS ORDERED: ACETAMINOPHEN 1000MG 100ML IV BTL (OFIRMEV) (J0131 PER 10MG) As Ordered ONE (08:53)
[2020-11-30] MEDS ORDERED: dexameTHASONE 4 MG/ML 1ML VIAL (J1100 PER 1MG) As Ordered ONE (08:53)
[2020-11-30] MEDS ORDERED: SUGAMMADEX SODIUM 500 MG/5 ML VIAL (BRIDION) As Ordered ONE (08:53)
[2020-11-30] MEDS ORDERED: ROCURONIUM BROMIDE 50 MG/5 ML VIAL As Ordered ONE ×3 (08:53→18:13)
[2020-11-30] MEDS ORDERED: propofoL 200 MG/20 ML VIAL As Ordered ONE (08:53)
[2020-11-30] MEDS ORDERED: ONDANSETRON 4MG/2ML VIAL As Ordered ONE ×2 (08:53→20:40)
[2020-11-30] MEDS ORDERED: KETOROLAC 60MG 2ML VIAL As Ordered ONE (08:53)
[2020-11-30] MEDS ORDERED: fentaNYL 100 MCG/2 ML INJECTION (J3010) As Ordered ONE (08:54)
[2020-11-30] MEDS ORDERED: MIDAZOLAM INJ 2MG/2ML VIAL (J2250 PER 1MG) As Ordered ONE (08:54)
[2020-11-30] MEDS: ALPRAZolam 0.25 MG TAB PO SCH ×2 (09:00→21:00)
--- NOTE | 2020-11-30 09:01 | IPNPDOC ---
Subjective Date Seen The patient was seen on 11/30/20. Subjective Chief Complaint/HPI Gordy is resting in bed, she is complaining of abdominal pain. She reports having a small amount of output through her ostomy overnight. She is scheduled for the OR later this afternoon Objective Physical Examination General Exam: Positive: Cooperative, No Acute Distress, Other (drowsy, able to arouse easily and response very appropriately, ox3) Eye Exam: Positive: PERRLA, Conjunctiva & lids normal, EOMI; Negative: Sclera icteric ENT Exam: Positive: Atraumatic, Mucous membr. moist/pink, Pharynx Normal Neck Exam: Positive: Supple; Negative: JVD, thyromegaly Chest Exam: Positive: Clear to auscultation, Normal air movement Heart Exam: Positive: Rate Normal, Regular Rhythm, Normal S1, Normal S2; Negative: Murmurs, Rubs Telemetry: Positive: No significant arrhythmia Abdomen Exam: Positive: BS Hypoactive (increased BS compared to yesterday), Soft (obese body habitus; ileostomy present with prolapsed stoma, stoma pink/ moist, minor drainage serosanguinous to surrounding gauze of the ostomy, abdominal binder in place), Tenderness (minimal ), Other (ostomy with small volume of fecal drainage) Extremity Exam: Positive: Normal pulses; Negative: Clubbing, Cyanosis, Edema Skin Exam: Positive: Nl turgor and temperature, Other skin issue (no obvious moisture breakdown noted surrounding visualized portions of abdominal skin around ostomy site); Negative: Rash, Breakdown Neuro Exam: Positive: Normal Speech, Strength at 5/5 X4 ext, Normal Tone Psych Exam: Positive: Mental status NL, Mood NL, Oriented x 3 Assessment /Plan Assessment Small bowel obstruction with multiple transition points in the parastomal hernia -Small bowel follow-through was not fully completed due to her developing symptoms - Abdomen w/ RLQ ostomy and prolapse - Mild leukocytosis again noted - c/w NG tube - c/w Levofloxacin and Flagyl (Day #7) -Continue TPN - [facility] transfer center was contacted ([phone]) again this morning; --> Patient does not have established care there and transfer is requested by patient --> Patient was accepted on waiting list; however was informed that bed may not be available for a while - noted that it was in her best interest to have surgery there - [facility] center was contacted ([phone]); recommended contact ing Dr. Veena Angel M.D; contacted directly ([phone]) this morning --> Spoke with Dr. Ji office; Accepted by Surgeon (Dr. Parvez Grider) to [facility], however will need insurance pre-authorization before transfer --> Discussed with case management; will likely be denied as services can be provided locally - OR today CKD3 - creatinine slightly elevated this a.m. s/p Hyponatremia s/p Hypokalemia; s/p Hyperkalemia HTN - BP better controlled relative to yesterday - s/p Furosemide Incidental CT abdomen pelvis finding of nonspecific right adrenal nodule of 1.3 cm - Plan for outpatient PCP follow-up for imaging such as an adrenal MRI Anxiety / Depression - Will hold Xanax (re: NPO) - c/w Ativan PRN s/p Transaminitis GI prophylaxis - c/w Protonix DVT prophylaxis - c/w Lovenox Disposition: - Awaiting clinical improvement Plan/VTE VTE Prophylaxis Ordered?: Yes Plan IVF: Continue Diet: Continue Current (NPO) Activity: Continue Current Therapy: PT (therapeutic purposes) Diagnostics: Repeat Labs in AM Anticipated Discharge: Home VS, I&O, 24H, Replaced By [facility] Vital Signs/I&O Vital Signs Date Time Temp Pulse Resp B/P (MAP) Pulse Ox O2 Delivery O2 Flow Rate FiO2 11/30/20 06:00 97.9 101 20 136/74 (94) 95 Room Air I&O- Last 24 Hours up to 6 AM 11/30/20 06:00 Intake Total 2390 ml Output Total 1925 ml Balance 465 ml Laboratory Data 24H LABS Laboratory Tests 2 11/29/20 11:40: Bedside Glucose (Misc Panel) 175H 11/29/20 17:53: Bedside Glucose (Misc Panel) 159H 11/30/20 00:30: Bedside Glucose (Misc Panel) 164H 11/30/20 05:53: Immature Granulocyte % (Auto) 0.9, Neutrophils (%) (Auto) 78.5H, Lymphocytes (%) (Auto) 8.4L, Monocytes (%) (Auto) 11.2H, Eosinophils (%) (Auto) 0.4, Basophils (%) (Auto) 0.6, Neutrophils # (Auto) 9.7H, Lymphocytes # (Auto) 1.0L, Monocytes # (Auto) 1.4H, Eosinophils # (Auto) 0.1, Basophils # (Auto) 0.1, Nucleated Red Blood Cells % (auto) 0.0, Anion Gap 8, Glomerular Filtration Rate 41.0L, Calcium Level 9.4, Magnesium Level 2.2 11/30/20 05:57: Bedside Glucose (Misc Panel) 150H CBC/BMP Laboratory Tests 11/30/20 05:53 BRENNA PICKARD MD Nov 30, 2020 09:01
[2020-11-30] MEDS: KCL 10MEQ/100ML SWI (KRUN) 10 MEQ in IV 1 EA IV SCH ×6 (09:08→18:30)
[2020-11-30] MEDS: PANTOPRAZOLE 40MG VIAL (C9113 PER 1) IV SCH (09:09)
[2020-11-30] MEDS: ENOXAPARIN 30MG/0.3ML SYRINGE (J1650 PER 10MG) SC SCH (09:09)
[2020-11-30] MEDS ORDERED: LABETALOL 100MG/20ML VIAL As Ordered ONE ×2 (09:24→19:21)
[2020-11-30] MEDS: LevoFLOXacin IV 750 MG in IV 1 EA IV SCH (13:17)
[2020-11-30 14:00] VITALS: BP 169/93
[2020-11-30 15:30] VITALS: BP 144/62
[2020-11-30] MEDS ORDERED: BUPIVACAINE HCL 0.25% 30ML VIAL As Ordered ONE (17:03)
[2020-11-30] MEDS ORDERED: LIDOCAINE 1% SDV 30ML VIAL As Ordered ONE (17:03)
[2020-11-30] MEDS ORDERED: metroNIDAZOLE/NACL 500MG(5MG/ML) 100ML BAG (S0030) As Ordered ONE (18:16)
[2020-11-30] MEDS ORDERED: DESFLURANE 240 ML INHALANT As Ordered ONE (19:36)
[2020-11-30] MEDS ORDERED: BUPIVACAINE LIPOSOME/PF 1.3% 20ML VIAL (13.3MG/ML)(EXPAREL)(C9290 PER1MG) As Ordered ONE (21:01)
[2020-11-30] MEDS ORDERED: BUPIVACAINE HCL 0.25% 10ML VIAL As Ordered ONE (21:01)
[2020-11-30] MEDS ORDERED: MORPHINE 4 MG/ML 1ML VIAL/SYRINGE (J2270) IV PRN (22:15)
[2020-11-30 23:00] VITALS: BP 150/71
[2020-11-30] MEDS: KETOROLAC 30 MG/ML 1ML VIAL IV SCH (23:24)
[2020-11-30] MEDS: LR 1,000 ML IV SCH (23:25)
[2020-11-30 23:30] VITALS: BP 146/73
[2020-12-01] VITALS (9 sets, daily range): BP systolic 128–160; BP diastolic 61–89
[2020-12-01] MEDS: IPRATROPIUM 0.5MG/ALBUTEROL 2.5MG INH SOL UD 3ML (DUONEB) NEB SCH ×4 (00:34→20:42)
[2020-12-01] MEDS: metroNIDAZOLE 500 MG in IV 1 EA IV SCH ×2 (02:36→09:32)
[2020-12-01] MEDS: KETOROLAC 30 MG/ML 1ML VIAL IV SCH ×4 (05:45→23:00)
[2020-12-01] MEDS: SODIUM CHLORIDE 0.9% INJ 10 ML SYR IV SCH ×2 (05:46→17:09)
[2020-12-01] MEDS: BUDESONIDE 0.5 MG/2 ML INHALATION SUSPENSION INH SCH ×2 (07:16→20:42)
[2020-12-01] MEDS: LR 1,000 ML IV SCH ×2 (08:02→15:37)
[2020-12-01] MEDS: ALPRAZolam 0.25 MG TAB PO SCH ×2 (08:07→21:29)
[2020-12-01] MEDS: PANTOPRAZOLE 40MG VIAL (C9113 PER 1) IV SCH (08:08)
[2020-12-01] MEDS: ENOXAPARIN 30MG/0.3ML SYRINGE (J1650 PER 10MG) SC SCH (08:08)
--- NOTE | 2020-12-01 09:30 | IPNPDOC ---
Subjective Date Seen The patient was seen on 12/01/20. Subjective Chief Complaint/HPI Gordy is dual all postoperative day 1. She eports improvement in abdominal pain, she is having more ostomy output following surgery. She is afebrile. She denies having any shortness of breath nor chest discomfort. Objective Physical Examination General Exam: Positive: Cooperative, No Acute Distress, Other (drowsy, able to arouse easily and response very appropriately, ox3) Eye Exam: Positive: PERRLA, Conjunctiva & lids normal, EOMI; Negative: Sclera icteric ENT Exam: Positive: Atraumatic, Mucous membr. moist/pink, Pharynx Normal Neck Exam: Positive: Supple; Negative: JVD, thyromegaly Chest Exam: Positive: Clear to auscultation, Normal air movement Heart Exam: Positive: Rate Normal, Regular Rhythm, Normal S1, Normal S2; Negative: Murmurs, Rubs Telemetry: Positive: No significant arrhythmia Abdomen Exam: Positive: BS Hypoactive (increased BS compared to yesterday), Soft (obese body habitus; ileostomy present with prolapsed stoma, stoma pink/ moist, minor drainage serosanguinous to surrounding gauze of the ostomy, abdominal binder in place), Tenderness (minimal ), Other (ostomy with small volume of fecal drainage) Extremity Exam: Positive: Normal pulses; Negative: Clubbing, Cyanosis, Edema Skin Exam: Positive: Nl turgor and temperature, Other skin issue (no obvious moisture breakdown noted surrounding visualized portions of abdominal skin around ostomy site); Negative: Rash, Breakdown Neuro Exam: Positive: Normal Speech, Strength at 5/5 X4 ext, Normal Tone Psych Exam: Positive: Mental status NL, Mood NL, Oriented x 3 Assessment /Plan Assessment Small bowel obstruction with multiple transition points in the parastomal hernia -Small bowel follow-through was not fully completed due to her developing symptoms - Abdomen w/ RLQ ostomy and prolapse - Mild leukocytosis again noted - c/w NG tube - c/w Levofloxacin and Flagyl (Day #7) -Continue TPN - POD # 1 s/p ex-lap CKD3 - creatinine slightly elevated this a.m., labs pending this a.m. s/p Hyponatremia s/p Hypokalemia; s/p Hyperkalemia HTN - BP better controlled relative to yesterday - s/p Furosemide Incidental CT abdomen pelvis finding of nonspecific right adrenal nodule of 1.3 cm - Plan for outpatient PCP follow-up for imaging such as an adrenal MRI Anxiety / Depression - Will hold Xanax (re: NPO) - c/w Ativan PRN s/p Transaminitis GI prophylaxis - c/w Protonix DVT prophylaxis - c/w Lovenox Disposition: - Awaiting clinical improvement Plan/VTE VTE Prophylaxis Ordered?: Yes Plan IVF: Continue Diet: Continue Current (NPO) Activity: Continue Current Therapy: PT (therapeutic purposes) Diagnostics: Repeat Labs in AM Anticipated Discharge: Home VS, I&O, 24H, Fishbone Vital Signs/I&O Vital Signs Date Time Temp Pulse Resp B/P (MAP) Pulse Ox O2 Delivery O2 Flow Rate FiO2 12/01/20 06:00 97.8 89 18 160/81 (107) 91 Room Air 12/01/20 03:00 4.0 I&O- Last 24 Hours up to 6 AM 12/01/20 06:00 Intake Total 2650 ml Output Total 1255 ml Balance 1395 ml Laboratory Data 24H LABS Laboratory Tests 2 11/30/20 12:06: Bedside Glucose (Misc Panel) 134H BRENNA PICKARD MD Dec 01, 2020 09:30
[2020-12-01 09:36] LABS: BASO # 0.1 10^3/uL (0.0-0.2); BASO % 0.5 % (0.0-1.0); EOS % 0.2 % (0.0-3.0); HEMATOCRIT 46.6 % (36.0-47.0); HEMOGLOBIN 15.3 g/dl (12.0-15.5); LYMPH # 0.7 10^3/uL (1.5-5.0); LYMPH % 5.3 % (24.0-44.0); MEAN CORPUSCULAR HEMOGLOBIN 29.7 pg (27.0-33.0); MEAN CORPUSCULAR HGB CONC 32.8 g/dl (32.0-36.5); MEAN CORPUSCULAR VOLUME 90.5 fl (80.0-96.0); MONO # 1.2 10^3/uL (0.0-0.8); MONO % 8.3 % (2.0-8.0); NEUTROPHILS # 11.8 10^3/uL (1.5-8.5); NEUTROPHILS % 85.1 % (36.0-66.0); PLATELET COUNT, AUTOMATED 225 10^3/uL (150-450); RED BLOOD COUNT 5.15 10^6/uL (4.00-5.40); WHITE BLOOD COUNT 13.9 10^3/uL (4.0-10.0)
[2020-12-01 09:57] LABS: CALCIUM LEVEL 8.5 MG/DL (8.8-10.2); CREATININE FOR GFR 1.59 MG/DL (0.55-1.30); GLOMERULAR FILTRATION RATE 34.3 (>45); MAGNESIUM LEVEL 1.9 MG/DL (1.8-2.4); POTASSIUM SERUM 3.7 MEQ/L (3.5-5.1)
--- NOTE | 2020-12-01 10:25 | ROOPDOC ---
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 POSTPROCEDURE DIAGNOSES: Incarcerated parastomal hernia containing loops of small bowel, omentum, small paramedian incisional hernia. PROCEDURE PERFORMED: Robotic assisted laparoscopic lysis of adhesion, reduction of incarcerated small bowel and omentum, release of bowel obstruction, Sugarbaker repair of parastomal hernia and prolapse with 15 x 20 cm Parietex composite mesh. SURGEON: Leoncio Joiner MD ANESTHESIA: General endotracheal anesthesia ESTIMATED BLOOD LOSS: Approximately 50 mL. 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 She still has not had full outp ut from her ileostomy. She initially wanted to be transferred to hernia centers at [facility], then to her prior colorectal surgeon [facility] but unfortunately beds were not available or some logistical/insurance problems with the lateral transfer. She family has decided to undergo surgery with me here in our institution. She is brought in today for planned robotic assisted laparoscopic, lysis of adhesion, release of her bowel obstruction and repair of her parastomal hernia.. FINDINGS: Incarcerated loops of bowel appear viable. This were reduced intraoperatively with release of small amount of serous fluid within the hernia sac. Is also chronically adhered omentum within the hernia sac. She has large amount of mesentery accompanying the loop of the ileostomy that initially at that there were 2 loops of bowel going into the hernia sac or that she has a loop ileostomy. She may have had a prior ileostomy. The parastomal hernia measures 4 x 3 cm internally. She also has a separate 3 x 2 cm paramedian incisional hernia just to the right of her mucous fistula. Multiple omental adhesions to the midline which was lysed. She has distended loops of bowel which I ran and I did not find any other obstructing points nor fixed points. I asked Dr. Nathan intraoperatively to help me assess the configuration of the ileostomy, mesentery. SPECIMENS REMOVED: Part of the mesentery and omentum removed (not sent for pathology) PROCEDURE NOTE: The excess mesentery was trimmed to decrease the bulkiness that goes through the fascial defect. #1 strata fix used to close the fascial defect around the stoma. The course of the ileostomy is lateralized to the lateral abdominal wall. A 15 x 20 cm Parietex composite mesh was used in a Sugarbaker configuration. DESCRIPTION OF PROCEDURE: Patient has been receiving Levaquin 750 mg IV daily and metronidazole 500 mg q8 hrs perioperatively. She also received lovenox 30 mg subcutaneously today for DVT prophylaxis. She has been in the hospital roughly a week now for continued small bowel obstruction related to her longstanding parastomal hernia. She has a remote history of rectal cancer status post surgery and chemoradiation with resulting stenosis of the rectal conduit and that she ended up with a permanent ileostomy and the mucous fistula. Patient was brought to the operating room, placed supine on the operating table. TEDs and Compression boots placed in both lower extremities for mechanical DVT prophylaxis. General endotracheal anesthesia started. Her left arm tucked. She was positioned to center her abdomen on the break on the table. I temporarily closed her ileostomy with a pursestring suture using 2-0 silk. The mucous fistula is covered with a piece of gauze and Tegaderm dressing. Her abdomen then prepped and draped in the usual sterile fashion with Betadine. The bed is flexed to increase distance between the ASIS and costal cartilage. We paused for a surgical timeout using both pre-incision safety checklist to verify correct patient, procedure site and additional clinical information prior to beginning the procedure Patient has a moderately rounded, moderately protuberant abdomen. Abdomen remains mild to moderately distended. She has a right paramedian ileostomy raised about an inch and a half from the skin. Mild skin irritation but no severe skin breakdown. She has a mucous fistula arising to the left and slightly inferior to her umbilicus which appears healthy. She has a midline incision from mid epigastrium to her pubis from her previous surgeries. I could still feel some fullness around the ileostomy signifying persistence of incarceration around the stoma. The stoma itself appears pink. When she presented this was prolapsing more than the foot out which she tells me is chronic. Currently this is partially reduced. There is minimal dark brownish liquid output in the bag when we removed it. I started with the right upper quadrant approach. A small incision was created at the RUQ/subcostal area and a Veress needle was inserted at the subcostal area about the midclavicular line. Proper placement confirmed with saline drop technique. CO2 insufflation started to pressure of 15 mmHg. I placed a 5 mm optical view port under direct visualization with a 5 mm laparoscope. Entry to the abdomen was easy. The area underneath the Veress and port insertion was inspected for injury none was found. Survey of the abdomen shows some omental adhesions at the midline adhered to the abdominal wall as well as to the falciform ligament. There was no ascites. No peritoneal studding. The left side was not easily visible due to the presence of the omental adhesions. I was able to maneuver the scope in between the falciform and omental adhesions and the left side is relatively free. The course of the mucous fistula is noted. At the right lower quadrant ostomy there are loops of small bowel that passing through the hernia defect. I manipulated laterally to try to reduce this and I was able to reduce the contents of the hernia. This was containing omentum as well as loops of small bowel that was contracted. The reduced small bowel appears healthy, with no signs of strangulation. There is a small amount of serous fluid that was within the hernia sac. Left was the ileostomy but there seems to be 1 or 2 more small bowel loops that was coursing through to the hernia defect. On CT scan the hernia defect measures 5 x 5 cm, this looks smaller internally but mostly occupied by the loops of bowel that are protruding through the hernia defect. I placed her on about a 12 degree reverse Trendelenburg tilted towards the right side and established my robotic ports. I used 3 8 mm trochars slightly medial to the anterior axillary line on the left side. These were all placed under direct vision. I used a bariatric 8 mm trocar at the lowest most port above the anterior superior iliac spine and 2 regular sized 8 mm ports about 8 to 10 cm apart. I performed a bilateral transversus abdominis plane block with our mixture of Exparel and Marcaine and 20 mL NS to created 60 mLs, 30 mLs infiltrated on each side. The [employer] robot tower is then positioned in place and the trochars docked. Instruments were placed under direct vision. I used a robotic scissors connected to monopolar cautery and forceps bipolar forceps connected to a bipolar cord with a 30 robotic laparoscope pointed upwards. I then broke scrub and took control of the camera and instruments at the surgeon's console while my it assistant remain on the field for management of the instruments and the robotic arms as well as of the mesh on my instructions. The omentum adhered to the wall off the falciform ligament and midline anterior abdominal wall was lysed with sharply and with monopolar cautery. Several omental adhesions to the ileostomy and mucous fistula was likewise lysed to provide room. All the bowel seems to be freely moving and none are adhered to the abdominal wall. Most visible loops of small bowel are moderately distended, fluid-filled but otherwise healthy with no thickening. On lysing the omental adhesions there is a separate more superior roughly 3 x 2 cm incisional hernia just above the umbilicus slightly to the right side. There is diastatic healing of the midline incision with shallow parietal, incomplete healing,t thin scarring and associated diastases of the rectus muscle bundles bilaterally. The ileostomy is within the right rectus muscle bundle. Bleeding points were controlled with bipolar cautery. I marked a 5 cm circumferential margin around the hernia defect . I created a preperitoneal pocket starting supero-laterally by opening up just lateral to the fatt appendage associated with the falciform ligament, then inferiorly and superiorly going around the umbilical defect while taking down the fatty insertion of the falciform ligament. At the thinnest portions of the flap, part of the transversalis fascia is recruited. Once we are around the hernia edge , I tried to preserve much of the hernia sac for posterior coverage of our mesh by having my it assistant apply external pressure to bring down the hernia sac. Once we were past the distal hernia edge we continued preperitoneal dissection to create an equal amount of preperitoneal space distally. Once this was done I then reassess the midline hernia defect. I measured this intra-abdominally and this measures 4 cm transversely and 4 cm vertically. At the level of the hernia defect the diastases measures 6 cm which tapers upwards to 4-5 cm and below this about 3-4 cm. There is moderate, protuberant lobulation of the skin from the hernia. I closed the hernia defect using 0 Strattafix. I incorporated diastases above, around and below the hernia defect with the closure up to about 2-3 cm below and above the defect as I feel that this contribution to the recurrence and weakness at the repair site specially the superior portion where diastases is always most prominent. While closing defect, the intra-abdominal pressure was gradually lessened to as low as 7 mmHg. I incorporated the redundant skin and subcutaneous tissue to close the cavity and re-create the umbilical cleft with the closure of the fascial defect. I used a total of 3 strands of Strattafix sutures starting at the bottom and superior edges and then placing one in the middle as we close the gap between the edges and coming back with the sutures to reinforce the first layer of closure while incorporating the diastases and plicating this superiorly and inferiorly. I then measured my preperitoneal pocket and extended that distally to get about a 6 cm overlap on each side. I chose a 15 x 15 cm Bard soft mesh and had my it assistant trimmed this down to 15 x 12 cm. This was introduced into the abdomen and placed pre-peritoneally against the abdominal wall. I sutured the distal edge to the abdominal wall with 2-0 Vicryl. I then placed Tisseel spray to that the mesh adhere and flatten against the abdominal wall while decreasing the intra-abdominal pressure to 7 mmHg of abdominal pressure. I then closed my peritoneal flap with a running suture of 20V LOC. The gaps in space at the midd le with a harvested hernia sac was incorporated and closed with another 20V LOC. There is a couple small holes at the distal end that I closed with 3-0 Vicryl. All sutures and materials, and needles were retrieved. Survey of the abdomen was done to make sure there is no inadvertent injury and no further bleeding from the reduced omentum. The abdomen was deflated. All ports removed. I scrubbed back in and closed the ports with 4-0 Monocryl in a subcuticular fashion. Dermabond was then used for dressing. Patient was then awakened, extubated and brought to recovery room in stable condition. LEONCIO JOINER MD Dec 01, 2020 10:25
--- NOTE | 2020-12-01 10:34 | IPNPDOC ---
Text Note Date of Service The patient was seen on 12/01/20. NOTE Patient seen sitting up in the bed looking very comfortable. She reports min imal discomfort at this time. She reports she is getting a lot more output from her ileostomy. She is denying any nausea or severe bloating or crampy abdominal pain at this point. Vital signs T-max 97.8 BP 160/81 Pulse rate 89 Respiratory rate 18 91% at 4 L nasal cannula I/O Urine total 175 Stool total 600 NG tube 400 Examination Patient looks a lot comfortable compared to preoperative Abdomen is obese, soft, mildly distended. Area around prior parastomal hernia site is soft. Stoma is pink, viable, nonprolapsed. There is brown liquid stool oozing out of the ileostomy, not much air. Nontender on palpation Impression and plan Parastomal hernia with associated small bowel obstruction, incarcerated small bowel Postop day 1 robotic assisted laparoscopic repair of her parastomal hernia, reduction of the incarcerated small bowel with release of bowel obstruction Patient appears to be doing well and very comfortable at this point. I will have the nasogastric tube clamped today and see if she tolerates this. She is already having good amount of output from her ileostomy. If this is tolerated we can discontinue the nasogastric tube and advance her to clear liquids. I will discontinue the antibiotics. Do not think she needs any further antibiotics. No signs of bowel ischemia. VS,Fishbone, I+O VS, Fishbone, I+O Laboratory Tests 12/01/20 09:19 Vital Signs Date Time Temp Pulse Resp B/P (MAP) Pulse Ox O2 Delivery O2 Flow Rate FiO2 12/01/20 06:00 97.8 89 18 160/81 (107) 91 Room Air 12/01/20 03:00 4.0 I&O- Last 24 Hours up to 6 AM 12/01/20 06:00 Intake Total 2650 ml Output Total 1255 ml Balance 1395 ml JOHN WOODS MD Dec 01, 2020 10:34
[2020-12-02] MEDS: LR 1,000 ML IV SCH ×4 (00:14→22:55)
[2020-12-02] MEDS: IPRATROPIUM 0.5MG/ALBUTEROL 2.5MG INH SOL UD 3ML (DUONEB) NEB SCH ×4 (02:37→19:03)
[2020-12-02] MEDS: KETOROLAC 30 MG/ML 1ML VIAL IV SCH ×4 (04:39→23:17)
[2020-12-02 05:58] LABS: BASO % 0.4 % (0.0-1.0); EOS # 0.1 10^3/uL (0.0-0.5); EOS % 1.3 % (0.0-3.0); HEMATOCRIT 40.2 % (36.0-47.0); LYMPH # 0.6 10^3/uL (1.5-5.0); MEAN CORPUSCULAR HEMOGLOBIN 29.4 pg (27.0-33.0); MEAN CORPUSCULAR HGB CONC 33.1 g/dl (32.0-36.5); MEAN CORPUSCULAR VOLUME 88.9 fl (80.0-96.0); MONO # 1.2 10^3/uL (0.0-0.8); NEUTROPHILS # 8.5 10^3/uL (1.5-8.5); NEUTROPHILS % 80.2 % (36.0-66.0); PLATELET COUNT, AUTOMATED 213 10^3/uL (150-450); RED BLOOD COUNT 4.52 10^6/uL (4.00-5.40); WHITE BLOOD COUNT 10.6 10^3/uL (4.0-10.0)
[2020-12-02 06:00] VITALS: BP 153/87
[2020-12-02 06:00] LABS: HEMOGLOBIN 13.3 g/dl (12.0-15.5)
[2020-12-02] MEDS: SODIUM CHLORIDE 0.9% INJ 10 ML SYR IV SCH ×2 (06:11→18:07)
[2020-12-02 06:18] LABS: CALCIUM LEVEL 8.3 MG/DL (8.8-10.2); CREATININE FOR GFR 1.13 MG/DL (0.55-1.30); GLOMERULAR FILTRATION RATE 50.8 (>45); MAGNESIUM LEVEL 1.8 MG/DL (1.8-2.4); POTASSIUM SERUM 3.6 MEQ/L (3.5-5.1)
[2020-12-02] MEDS: BUDESONIDE 0.5 MG/2 ML INHALATION SUSPENSION INH SCH ×2 (07:18→19:03)
--- NOTE | 2020-12-02 09:14 | IPNPDOC ---
Subjective Date Seen The patient was seen on 12/02/20. Subjective Chief Complaint/HPI Gordy is doing well this morning. Her pain is controlled. She continues to have ostomy output. Her NG tube has been removed and she is tolerating the full liquid diet. Objective Physical Examination General Exam: Positive: Cooperative, No Acute Distress, Other (drowsy, able to arouse easily and response very appropriately, ox3) Eye Exam: Positive: PERRLA, Conjunctiva & lids normal, EOMI; Negative: Sclera icteric ENT Exam: Positive: Atraumatic, Mucous membr. moist/pink, Pharynx Normal Neck Exam: Positive: Supple; Negative: JVD, thyromegaly Chest Exam: Positive: Clear to auscultation, Normal air movement Heart Exam: Positive: Rate Normal, Regular Rhythm, Normal S1, Normal S2; Negative: Murmurs, Rubs Telemetry: Positive: No significant arrhythmia Abdomen Exam: Positive: BS Hypoactive (increased BS compared to yesterday), Soft (obese body habitus; ileostomy present with prolapsed stoma, stoma pink/ moist, minor drainage serosanguinous to surrounding gauze of the ostomy, abdominal binder in place), Tenderness (minimal ), Other (ostomy with small volume of fecal drainage) Extremity Exam: Positive: Normal pulses; Negative: Clubbing, Cyanosis, Edema Skin Exam: Positive: Nl turgor and temperature, Other skin issue (no obvious moisture breakdown noted surrounding visualized portions of abdominal skin around ostomy site); Negative: Rash, Breakdown Neuro Exam: Positive: Normal Speech, Strength at 5/5 X4 ext, Normal Tone Psych Exam: Positive: Mental status NL, Mood NL, Oriented x 3 Assessment /Plan Assessment Small bowel obstruction with multiple transition points in the parastomal hernia - wbc improving - abx stopped -Continue TPN - POD # 2 s/p Robotic assisted laparoscopic lysis of adhesion, reduction of incarcerated small bowel and omentum, release of bowel obstruction, Sugarbaker repair of parastomal hernia and prolapse with 15 x 20 cm Parietex composite mesh. CKD3 - creat stble s/p Hyponatremia s/p Hypokalemia; s/p Hyperkalemia HTN - BP better controlled relative to yesterday - s/p Furosemide Incidental CT abdomen pelvis finding of nonspecific right adrenal nodule of 1.3 cm - Plan for outpatient PCP follow-up for imaging such as an adrenal MRI Anxiety / Depression - c/w Ativan PRN s/p Transaminitis GI prophylaxis - c/w Protonix DVT prophylaxis - c/w Lovenox Disposition: - medically stable home when ok with gen surgery Plan/VTE VTE Prophylaxis Ordered?: Yes Plan IVF: Continue Diet: Continue Current (NPO) Activity: Continue Current Therapy: PT (therapeutic purposes) Diagnostics: Repeat Labs in AM Anticipated [facility]O Vital Signs Date Time Temp Pulse Resp B/P (MAP) Pulse Ox O2 Delivery O2 Flow Rate FiO2 12/02/20 06:00 97.7 99 18 153/87 (109) 91 Room Air 12/01/20 10:00 4.0 I&O- Last 24 Hours up to 6 AM 12/02/20 06:00 Intake Total 3580 ml Output Total 840 ml Balance 2740 ml Laboratory Data 24H LABS Laboratory Tests 2 12/01/20 09:19: Immature Granulocyte % (Auto) 0.6, Neutrophils (%) (Auto) 85.1H, Lymphocytes (%) (Auto) 5.3L, Monocytes (%) (Auto) 8.3H, Eosinophils (%) (Auto) 0.2, Basophils (%) (Auto) 0.5, Neutrophils # (Auto) 11.8H, Lymphocytes # (Auto) 0.7L, Monocytes # (Auto) 1.2H, Eosinophils # (Auto) 0.0, Basophils # (Auto) 0.1, Nucleated Red Blood Cells % (auto) 0.0, Anion Gap 8, Glomerular Filtration Rate 34.3L, Calcium Level 8.5L, Magnesium Level 1.9 12/01/20 12:07: Bedside Glucose (Misc Panel) 99 12/01/20 18:05: Bedside Glucose (Misc Panel) 136H 12/02/20 05:38: Immature Granulocyte % (Auto) 1.1, Neutrophils (%) (Auto) 80.2H, Lymphocytes (%) (Auto) 6.0L, Monocytes (%) (Auto) 11.0H, Eosinophils (%) (Auto) 1.3, Basophils (%) (Auto) 0.4, Neutrophils # (Auto) 8.5, Lymphocytes # (Auto) 0.6L, Monocytes # (Auto) 1.2H, Eosinophils # (Auto) 0.1, Basophils # (Auto) 0.0, Nucleated Red Blood Cells % (auto) 0.0, Anion Gap 6L, Glomerular Filtration Rate 50.8, Calcium Level 8.3L, Magnesium Level 1.8 CBC/BMP Laboratory Tests 12/01/20 09:19 12/02/20 05:38 BRENNA PICKARD MD Dec 02, 2020 09:12
[2020-12-02] MEDS: ALPRAZolam 0.25 MG TAB PO SCH ×2 (10:09→21:05)
[2020-12-02] MEDS: PANTOPRAZOLE 40MG VIAL (C9113 PER 1) IV SCH (10:09)
[2020-12-02] MEDS: ENOXAPARIN 30MG/0.3ML SYRINGE (J1650 PER 10MG) SC SCH (10:10)
[2020-12-02] MEDS: MAALOX 30 ML SUSP *UDC PO PRN ×2 (10:46→21:09)
--- NOTE | 2020-12-02 13:41 | IPNPDOC ---
Text Note Date of Service The patient was seen on 12/02/20. NOTE Patient seen early this afternoon. She is reporting some mild upper abdominal discomfort, gas type pain/discomfort, burping but denies any nausea. She looks a bit more distended today than she was yesterday. You were able to remove her nasogastric tube last night and she was able to tolerate the tube being clamped for more than 8 hours. She is on clear liquids. She continues to have output from her ileostomy and is noticing more gas from at. She feels sleepy today, r eports she forgot to put her CPAP on last night until early this morning. Otherwise she is denying any severe abdominal pain or discomfort. Vital signs T-max 97.7 BP 153/87 Pulse oximetry 91% at room air respiratory rate 18 Pulse rate 99 On exam patient looks comfortable, looks tired and sleepy, yawning intermittently Abdomen looks moderately distended today, tympanic to percussion. No tendern ess. Laparoscopic port sites over the left side also right upper quadrant clean dry and intact. Ileostomy is nonprolapsing, pink, liquid brown stool in the bag. No significant extremity edema Labs reviewed Impression and plan Postop day 2 after robotic assisted laparoscopic release of bowel obstruction, lysis of adhesion, repair of parastomal hernia She still has some element of abdominal/intestinal distention probably not fully resolved ileus/bowel obstruction though she continues to show function of her ileostomy. She so far she is tolerating clear liquids. I am concerned that she is not getting enough nutrition from this. I will let her have full liquids just from nutrition chávez/calorie intake chávez. I do not think she is ready yet for solid food. I have added some Mylanta as well as Reglan to promote gastric emptying and relieve some of the upper abdominal discomfort/gas discomfort. She is encouraged to ambulate. She has ambulated yesterday. She is not requiring any narcotics. She is getting some doses of Toradol. Some of the doses she is refusing. VS,Fishbone, I+O VS, Fishbone, I+O Laboratory Tests 12/02/20 05:38 Vital Signs Date Time Temp Pulse Resp B/P (MAP) Pulse Ox O2 Delivery O2 Flow Rate FiO2 12/02/20 06:00 97.7 99 18 153/87 (109) 91 Room Air 12/01/20 10:00 4.0 I&O- Last 24 Hours up to 6 AM 12/02/20 06:00 Intake Total 3580 ml Output Total 840 ml Balance 2740 ml JOHN WOODS MD Dec 02, 2020 13:41
[2020-12-02 14:00] VITALS: BP 154/92
[2020-12-02] MEDS: METOCLOPRAMIDE 10 MG TAB PO SCH ×2 (14:21→21:05)
[2020-12-03] MEDS: IPRATROPIUM 0.5MG/ALBUTEROL 2.5MG INH SOL UD 3ML (DUONEB) NEB SCH ×4 (02:24→20:27)
[2020-12-03] MEDS: KETOROLAC 30 MG/ML 1ML VIAL IV SCH ×4 (05:00→18:38)
[2020-12-03] MEDS: SODIUM CHLORIDE 0.9% INJ 10 ML SYR IV SCH ×3 (05:57→18:39)
[2020-12-03] MEDS: METOCLOPRAMIDE 10 MG TAB PO SCH ×3 (05:57→22:07)
[2020-12-03 06:00] VITALS: BP 146/80
[2020-12-03 06:15] LABS: BASO % 0.2 % (0.0-1.0); EOS # 0.2 10^3/uL (0.0-0.5); EOS % 1.5 % (0.0-3.0); HEMATOCRIT 43.6 % (36.0-47.0); HEMOGLOBIN 14.4 g/dl (12.0-15.5); LYMPH # 0.8 10^3/uL (1.5-5.0); LYMPH % 6.3 % (24.0-44.0); MEAN CORPUSCULAR HEMOGLOBIN 28.8 pg (27.0-33.0); MEAN CORPUSCULAR VOLUME 87.2 fl (80.0-96.0); MONO # 1.2 10^3/uL (0.0-0.8); MONO % 9.7 % (2.0-8.0); NEUTROPHILS % 81.4 % (36.0-66.0); PLATELET COUNT, AUTOMATED 265 10^3/uL (150-450); WHITE BLOOD COUNT 12.3 10^3/uL (4.0-10.0)
[2020-12-03 06:43] LABS: CREATININE FOR GFR 1.08 MG/DL (0.55-1.30); GLOMERULAR FILTRATION RATE 53.5 (>45); MAGNESIUM LEVEL 1.9 MG/DL (1.8-2.4); POTASSIUM SERUM 3.3 MEQ/L (3.5-5.1)
[2020-12-03] MEDS: BUDESONIDE 0.5 MG/2 ML INHALATION SUSPENSION INH SCH ×2 (07:16→20:29)
[2020-12-03] MEDS ORDERED: POTASSIUM CHLORIDE 10 MEQ SR TABLET PO ONE (09:00)
[2020-12-03] MEDS: LR 1,000 ML IV SCH (10:23)
--- NOTE | 2020-12-03 10:24 | IPNPDOC ---
Subjective Date Seen The patient was seen on 12/03/20. Subjective Chief Complaint/HPI Gordy is resting in bed. She is otherwise doing okay. Her ostomy continues to have good output. Objective Physical Examination General Exam: Positive: Cooperative, No Acute Distress, Other (drowsy, able to arouse easily and response very appropriately, ox3) Eye Exam: Positive: PERRLA, Conjunctiva & lids normal, EOMI; Negative: Sclera icteric ENT Exam: Positive: Atraumatic, Mucous membr. moist/pink, Pharynx Normal Neck Exam: Positive: Supple; Negative: JVD, thyromegaly Chest Exam: Positive: Clear to auscultation, Normal air movement Heart Exam: Positive: Rate Normal, Regular Rhythm, Normal S1, Normal S2; Negative: Murmurs, Rubs Telemetry: Positive: No significant arrhythmia Abdomen Exam: Positive: BS Hypoactive (increased BS compared to yesterday), Soft (obese body habitus; ileostomy present with prolapsed stoma, stoma pink/ moist, minor drainage serosanguinous to surrounding gauze of the ostomy, abdominal binder in place), Tenderness (minimal ), Other (ostomy with small volume of fecal drainage) Extremity Exam: Positive: Normal pulses; Negative: Clubbing, Cyanosis, Edema Skin Exam: Positive: Nl turgor and temperature, Other skin issue (no obvious moisture breakdown noted surrounding visualized portions of abdominal skin around ostomy site); Negative: Rash, Breakdown Neuro Exam: Positive: Normal Speech, Strength at 5/5 X4 ext, Normal Tone Psych Exam: Positive: Mental status NL, Mood NL, Oriented x 3 Assessment /Plan Assessment Small bowel obstruction with multiple transition points in the parastomal hernia - wbc improving - abx stopped -Continue TPN - POD # 3 s/p Robotic assisted laparoscopic lysis of adhesion, reduction of incarcerated small bowel and omentum, release of bowel obstruction, Sugarbaker repair of parastomal hernia and prolapse with 15 x 20 cm Parietex composite mesh. CKD3 - creat stable s/p Hyponatremia s/p Hypokalemia; s/p Hyperkalemia - replacement ordered HTN - BP better controlled relative to yesterday - s/p Furosemide Incidental CT abdomen pelvis finding of nonspecific right adrenal nodule of 1.3 cm - Plan for outpatient PCP follow-up for imaging such as an adrenal MRI Anxiety / Depression - c/w Ativan PRN s/p Transaminitis GI prophylaxis - c/w Protonix DVT prophylaxis - c/w Lovenox Disposition: - medically stable home when ok with gen surgery Plan/VTE VTE Prophylaxis Ordered?: Yes Plan IVF: Continue Diet: Continue Current (NPO) Activity: Continue Current Therapy: PT (therapeutic purposes) Diagnostics: Repeat Labs in AM Anticipated Discharge: Home VS, I&O, 24H, Fishbone Vital Signs/I&O Vital Signs Date Time Temp Pulse Resp B/P (MAP) Pulse Ox O2 Delivery O2 Flow Rate FiO2 12/03/20 06:00 97.1 101 19 146/80 (102) 92 Room Air 12/01/20 10:00 4.0 I&O- Last 24 Hours up to 6 AM 12/03/20 06:00 Intake Total 4655 ml Output Total 3325 ml Balance 1330 ml Laboratory Data 24H LABS Laboratory Tests 2 12/03/20 05:45: Immature Granulocyte % (Auto) 0.9, Neutrophils (%) (Auto) 81.4H, Lymphocytes (%) (Auto) 6.3L, Monocytes (%) (Auto) 9.7H, Eosinophils (%) (Auto) 1.5, Basophils (%) (Auto) 0.2, Neutrophils # (Auto) 10.0H, Lymphocytes # (Auto) 0.8L, Monocytes # (Auto) 1.2H, Eosinophils # (Auto) 0.2, Basophils # (Auto) 0.0, Nucleated Red Blood Cells % (auto) 0.0, Anion Gap 10, Glomerular Filtration Rate 53.5, Calcium Level 9.0, Magnesium Level 1.9 CBC/BMP Laboratory Tests 12/03/20 05:45 BRENNA PICKARD MD Dec 03, 2020 10:24
[2020-12-03] MEDS: PANTOPRAZOLE 40MG VIAL (C9113 PER 1) IV SCH (10:25)
[2020-12-03] MEDS: ALPRAZolam 0.25 MG TAB PO SCH ×2 (10:25→22:07)
[2020-12-03] MEDS: SODIUM CHLORIDE 0.9% INJ 10 ML SYR IV PRN (10:28)
[2020-12-03] MEDS: ENOXAPARIN 40MG/0.4ML SYRINGE (J1650 PER 10MG) SC SCH (11:12)
--- NOTE | 2020-12-03 12:06 | IPNPDOC ---
Text Note Date of Service The patient was seen on 12/03/20. NOTE Patient seen and examined today. She reports she was having a lot of output from her ileostomy. The abdominal bloating, burping, dyspeptic symptoms that she was experiencing yesterday appears to have resolved. She is denying any significant abdominal discomfort. Her ileostomy remains pink, working and nonprolapsed. Vital signs are stable. On examination she looks very comfortable Her abdomen is markedly less distended today compared to yesterday. Her port site incisions are clean dry and intact. Her ileostomy is pink and nicely placed without any prolapse. There may be a small amount of serous fluid buildup around the prior hernia sac. She is nontender on palpation. She has thin bilious fluid coming out from the ileostomy with gas. Impression and plan Small bowel obstruction related to parastomal hernia the patient with permanent ileostomy, mucous fistula. History of radiation to the pelvis, rectal surgery for rectal cancer remotely She looks to be doing well. I have advanced her to solid foods. I will stop her IV fluids. If she continues to do well I expect she will be able to go home tomorrow. VS,Fishbone, I+O VS, Fishbone, I+O Laboratory Tests 12/03/20 05:45 Vital Signs Date Time Temp Pulse Resp B/P (MAP) Pulse Ox O2 Delivery O2 Flow Rate FiO2 12/03/20 06:00 97.1 101 19 146/80 (102) 92 Room Air 12/01/20 10:00 4.0 I&O- Last 24 Hours up to 6 AM 12/03/20 06:00 Intake Total 4655 ml Output Total 3325 ml Balance 1330 ml JOHN WOODS MD Dec 03, 2020 12:06
[2020-12-03 14:00] VITALS: BP 154/84
[2020-12-03] MEDS: MAALOX 30 ML SUSP *UDC PO PRN (14:46)
[2020-12-03 22:00] VITALS: BP 140/80
[2020-12-04] MEDS: IPRATROPIUM 0.5MG/ALBUTEROL 2.5MG INH SOL UD 3ML (DUONEB) NEB SCH ×4 (01:54→20:16)
[2020-12-04] MEDS: METOCLOPRAMIDE 10 MG TAB PO SCH (05:56)
[2020-12-04] MEDS: SODIUM CHLORIDE 0.9% INJ 10 ML SYR IV SCH ×2 (05:57→18:17)
[2020-12-04 06:00] VITALS: BP 150/78
[2020-12-04 07:19] LABS: BASO # 0.1 10^3/uL (0.0-0.2); BASO % 0.3 % (0.0-1.0); EOS # 0.4 10^3/uL (0.0-0.5); HEMATOCRIT 46.1 % (36.0-47.0); HEMOGLOBIN 15.3 g/dl (12.0-15.5); LYMPH # 0.7 10^3/uL (1.5-5.0); LYMPH % 4.1 % (24.0-44.0); MEAN CORPUSCULAR HEMOGLOBIN 28.7 pg (27.0-33.0); MEAN CORPUSCULAR HGB CONC 33.2 g/dl (32.0-36.5); MEAN CORPUSCULAR VOLUME 86.5 fl (80.0-96.0); MONO # 1.7 10^3/uL (0.0-0.8); MONO % 9.7 % (2.0-8.0); NEUTROPHILS # 14.7 10^3/uL (1.5-8.5); PLATELET COUNT, AUTOMATED 275 10^3/uL (150-450); RED BLOOD COUNT 5.33 10^6/uL (4.00-5.40)
[2020-12-04] MEDS: BUDESONIDE 0.5 MG/2 ML INHALATION SUSPENSION INH SCH ×2 (07:31→20:16)
[2020-12-04 07:39] LABS: ALBUMIN 2.9 GM/DL (3.2-5.2); BILIRUBIN,TOTAL 0.6 MG/DL (0.2-1.0); CALCIUM LEVEL 8.9 MG/DL (8.8-10.2); CREATININE FOR GFR 1.13 MG/DL (0.55-1.30); GLOMERULAR FILTRATION RATE 50.8 (>45); POTASSIUM SERUM 3.5 MEQ/L (3.5-5.1); TOTAL PROTEIN 6.3 GM/DL (6.4-8.2)
[2020-12-04 07:57] LABS: WHITE BLOOD COUNT 17.7 10^3/uL (4.0-10.0)
[2020-12-04] MEDS ORDERED: MAG SULF 1GM/100ML (MAG RUN) 1 GM in IV 1 EA IV ONE (08:00)
[2020-12-04] MEDS: ALPRAZolam 0.25 MG TAB PO SCH ×2 (09:27→22:28)
[2020-12-04] MEDS: PANTOPRAZOLE 40MG VIAL (C9113 PER 1) IV SCH (09:27)
[2020-12-04] MEDS: ENOXAPARIN 40MG/0.4ML SYRINGE (J1650 PER 10MG) SC SCH (09:28)
[2020-12-04] MEDS: KCL 20MEQ in NS 1000ML 1,000 ML IV SCH (09:28)
[2020-12-04] MEDS: KCL 10MEQ/100ML SWI (KRUN) 10 MEQ in IV 1 EA IV SCH ×2 (09:29→10:51)
--- NOTE | 2020-12-04 10:03 | IPNPDOC ---
Subjective Date Seen The patient was seen on 12/04/20. Subjective Chief Complaint/HPI Gordy is feeling well this am, she's tolerating regular diet. Objective Physical Examination General Exam: Positive: Cooperative, No Acute Distress, Other (drowsy, able to arouse easily and response very appropriately, ox3) Eye Exam: Positive: PERRLA, Conjunctiva & lids normal, EOMI; Negative: Sclera icteric ENT Exam: Positive: Atraumatic, Mucous membr. moist/pink, Pharynx Normal Neck Exam: Positive: Supple; Negative: JVD, thyromegaly Chest Exam: Positive: Clear to auscultation, Normal air movement Heart Exam: Positive: Rate Normal, Regular Rhythm, Normal S1, Normal S2; Negative: Murmurs, Rubs Telemetry: Positive: No significant arrhythmia Abdomen Exam: Positive: BS Hypoactive (increased BS compared to yesterday), Soft (obese body habitus; ileostomy present with prolapsed stoma, stoma pink/ moist, minor drainage serosanguinous to surrounding gauze of the ostomy, abdominal binder in place), Tenderness (minimal ), Other (ostomy with small volume of fecal drainage) Extremity Exam: Positive: Normal pulses; Negative: Clubbing, Cyanosis, Edema Skin Exam: Positive: Nl turgor and temperature, Other skin issue (no obvious moisture breakdown noted surrounding visualized portions of abdominal skin around ostomy site); Negative: Rash, Breakdown Neuro Exam: Positive: Normal Speech, Strength at 5/5 X4 ext, Normal Tone Psych Exam: Positive: Mental status NL, Mood NL, Oriented x 3 Assessment /Plan Assessment Small bowel obstruction with multiple transition points in the parastomal hernia - wbc elevated this am - abx stopped -Continue TPN - POD # 4 s/p Robotic assisted laparoscopic lysis of adhesion, reduction of incarcerated small bowel and omentum, release of bowel obstruction, Sugarbaker repair of parastomal hernia and prolapse with 15 x 20 cm Parietex composite mesh. CKD3 - creat stable s/p Hyponatremia s/p Hypokalemia; s/p Hyperkalemia - replacement ordered HTN - BP better controlled relative to yesterday - s/p Furosemide Incidental CT abdomen pelvis finding of nonspecific right adrenal nodule of 1.3 cm - Plan for outpatient PCP follow-up for imaging such as an adrenal MRI Anxiety / Depression - c/w Ativan PRN s/p Transaminitis GI prophylaxis - c/w Protonix DVT prophylaxis - c/w Lovenox Disposition: - medically stable home with HH when ok with gen surgery Plan/VTE VTE Prophylaxis Ordered?: Yes Plan IVF: Continue Diet: Continue Current (NPO) Activity: Continue Current Therapy: PT (therapeutic purposes) Diagnostics: Repeat Labs in AM Anticipated Discharge: Home VS, I&O, 24H, [facility] Vital Signs/I&O Vital Signs Date Time Temp Pulse Resp B/P (MAP) Pulse Ox O2 Delivery O2 Flow Rate FiO2 12/04/20 06:00 98.1 101 17 150/78 (102) 93 Room Air 12/01/20 10:00 4.0 I&O- Last 24 Hours up to 6 AM 12/04/20 06:00 Intake Total 2160 ml Output Total 5950 ml Balance -3790 ml Laboratory Data 24H LABS Laboratory Tests 2 12/04/20 06:56: Immature Granulocyte % (Auto) 0.9, Neutrophils (%) (Auto) 83.0H, Lymphocytes (%) (Auto) 4.1L, Monocytes (%) (Auto) 9.7H, Eosinophils (%) (Auto) 2.0, Basophils (%) (Auto) 0.3, Neutrophils # (Auto) 14.7H, Lymphocytes # (Auto) 0.7L, Monocytes # (Auto) 1.7H, Eosinophils # (Auto) 0.4, Basophils # (Auto) 0.1, Nucleated Red Blood Cells % (auto) 0.0, Anion Gap 7L, Glomerular Filtration Rate 50.8, Calcium Level 8.9, Magnesium Level 2.0, Total Bilirubin 0.6, Aspartate Amino Transf (AST/SGOT) 21, Alanine Aminotransferase (ALT/SGPT) 37, Alkaline Phosphatase 97, Total Protein 6.3L, Albumin 2.9L, Albumin/Globulin Ratio 0.9L CBC/BMP Laboratory Tests 12/04/20 06:56 BRENNA PICKARD MD Dec 04, 2020 10:03
--- NOTE | 2020-12-04 10:34 | IPNPDOC ---
Text Note Date of Service The patient was seen on 12/04/20. NOTE Patient has increased ileostomy output for the past 2 days. For the past 24 hours this as per the nearly 4 L. The consistency is getting thicker now. She is denying any nausea. Her distention has resolved. She is tolerating regular food. Vital signs stable I/O Ileostomy 3925 yesterday, 2075 mL so far today Urine output 875 mL yesterday, 150 mL so far today On examination Patient looks comfortable Abdomen: Only minimally distended at this point, round, soft. Trocar sites are healing. No drainage. Ileostomy without prolapse, healthy, not prolapsing Nontender on palpation Impression and plan She is postop day 4 after robotic assisted laparoscopic repair of parastomal hernia, release of bowel obstruction Postobstructive increased output from ileostomy I have given her an extra IV fluid as she most likely will get severely dehydrated with this amount of output. We will add some Lomotil to slow down the output. We will get physical therapy to assess her strength and get recommendations from them with regards to post discharge activity/help. She feels she is gotten weaker since admission. VS,Fishbone, I+O VS, Fishbone, I+O Laboratory Tests 12/04/20 06:56 Vital Signs Date Time Temp Pulse Resp B/P (MAP) Pulse Ox O2 Delivery O2 Flow Rate FiO2 12/04/20 06:00 98.1 101 17 150/78 (102) 93 Room Air 12/01/20 10:00 4.0 I&O- Last 24 Hours up to 6 AM 12/04/20 06:00 Intake Total 2160 ml Output Total 5950 ml Balance -3790 ml JOHN WOODS MD Dec 04, 2020 10:34
[2020-12-04] MEDS: LOMOTIL 2.5MG/0.025MG TABLET PO SCH ×2 (10:50→22:29)
[2020-12-04 14:00] VITALS: BP 136/70
[2020-12-04] MEDS ORDERED: NORCO, ANEXSIA 5/325MG TABLET (HYDROcodone/ACETAMINOPHEN) PO PRN (15:05)
[2020-12-04] MEDS ORDERED: ACETAMINOPHEN TAB 650MG DOSE (2X325MG) PO PRN (15:05)
[2020-12-04 21:00] VITALS: BP 145/82
[2020-12-05] MEDS: IPRATROPIUM 0.5MG/ALBUTEROL 2.5MG INH SOL UD 3ML (DUONEB) NEB SCH ×4 (01:51→20:48)
[2020-12-05] MEDS: SODIUM CHLORIDE 0.9% INJ 10 ML SYR IV SCH ×2 (06:02→17:23)
[2020-12-05 06:11] LABS: HEMATOCRIT 44.4 % (36.0-47.0); HEMOGLOBIN 14.5 g/dl (12.0-15.5); MEAN CORPUSCULAR HEMOGLOBIN 28.3 pg (27.0-33.0); MEAN CORPUSCULAR HGB CONC 32.7 g/dl (32.0-36.5); MEAN CORPUSCULAR VOLUME 86.7 fl (80.0-96.0); PLATELET COUNT, AUTOMATED 306 10^3/uL (150-450); RED BLOOD COUNT 5.12 10^6/uL (4.00-5.40)
[2020-12-05 06:16] VITALS: BP 146/79
[2020-12-05 06:32] LABS: CALCIUM LEVEL 8.7 MG/DL (8.8-10.2); CREATININE FOR GFR 1.16 MG/DL (0.55-1.30); GLOMERULAR FILTRATION RATE 49.3 (>45); MAGNESIUM LEVEL 1.9 MG/DL (1.8-2.4); POTASSIUM SERUM 3.8 MEQ/L (3.5-5.1)
[2020-12-05] MEDS: BUDESONIDE 0.5 MG/2 ML INHALATION SUSPENSION INH SCH ×2 (07:39→20:48)
[2020-12-05] MEDS: KCL 20MEQ in NS 1000ML 1,000 ML IV SCH (09:36)
[2020-12-05] MEDS: LOMOTIL 2.5MG/0.025MG TABLET PO SCH ×3 (09:36→20:12)
[2020-12-05] MEDS: ALPRAZolam 0.25 MG TAB PO SCH ×2 (09:36→20:12)
[2020-12-05] MEDS: ENOXAPARIN 40MG/0.4ML SYRINGE (J1650 PER 10MG) SC SCH (09:37)
[2020-12-05 12:00] VITALS: BP 145/76
--- NOTE | 2020-12-05 12:56 | IPNPDOC ---
Text Note Date of Service The patient was seen on 12/05/20. NOTE General Surgery Dr Joiner. 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 The patient has had high output from her ileostomy, 5375 mL yesterday. Patient was started on Imodium yesterday, consistency has been thicker. She is tolerating regular food. Afebrile, VSS. The patient is sitting on the side of the bed, appears comfortable Abdomen decreased distention, round, soft. Incisions are healing. Ileostomy with no tenderness, no prolapsing. The patient is postop robotic assisted laparoscopic repair of parastomal hernia, release of bowel obstruction, with postobstructive increased output from ileostomy. The patient is reviewed and examined as per Dr. Joiner this morning. 5 L of output documented from ostomy yesterday. Will increase Imodium to 3 times daily. Continue IV fluids. Physical therapy evaluation requested. VS,Fishbone, I+O VS, Fishbone, I+O Laboratory Tests 12/05/20 05:44 Vital Signs Date Time Temp Pulse Resp B/P (MAP) Pulse Ox O2 Delivery O2 Flow Rate FiO2 12/05/20 06:16 96.6 97 20 146/79 (101) 97 Room Air 12/01/20 10:00 4.0 I&O- Last 24 Hours up to 6 AM 12/05/20 06:00 Intake Total 3920 ml Output Total 4370 ml Balance -450 ml Yary Titus Dec 05, 2020 12:56
--- NOTE | 2020-12-05 13:00 | IPNPDOC ---
Subjective Date Seen The patient was seen on 12/05/20. Subjective Chief Complaint/HPI Gordy is feeling well this morning, her ostomy output is thickening. She's not having any abdominal pain. Objective Physical Examination General Exam: Positive: Cooperative, No Acute Distress, Other (drowsy, able to arouse easily and response very appropriately, ox3) Eye Exam: Positive: PERRLA, Conjunctiva & lids normal, EOMI; Negative: Sclera icteric ENT Exam: Positive: Atraumatic, Mucous membr. moist/pink, Pharynx Normal Neck Exam: Positive: Supple; Negative: JVD, thyromegaly Chest Exam: Positive: Clear to auscultation, Normal air movement Heart Exam: Positive: Rate Normal, Regular Rhythm, Normal S1, Normal S2; Negative: Murmurs, Rubs Telemetry: Positive: No significant arrhythmia Abdomen Exam: Positive: BS Hypoactive (increased BS compared to yesterday), Soft (obese body habitus; ileostomy present with prolapsed stoma, stoma pink/ moist, minor drainage serosanguinous to surrounding gauze of the ostomy, abdominal binder in place), Tenderness (minimal ), Other (ostomy with small volume of fecal drainage) Extremity Exam: Positive: Normal pulses; Negative: Clubbing, Cyanosis, Edema Skin Exam: Positive: Nl turgor and temperature, Other skin issue (no obvious moisture breakdown noted surrounding visualized portions of abdominal skin around ostomy site); Negative: Rash, Breakdown Neuro Exam: Positive: Normal Speech, Strength at 5/5 X4 ext, Normal Tone Psych Exam: Positive: Mental status NL, Mood NL, Oriented x 3 Assessment /Plan Assessment Small bowel obstruction with multiple transition points in the parastomal hernia - wbc elevated this am - abx stopped -Continue TPN - POD # 5 s/p Robotic assisted laparoscopic lysis of adhesion, reduction of incarcerated small bowel and omentum, release of bowel obstruction, Sugarbaker repair of parastomal hernia and prolapse with 15 x 20 cm Parietex composite mesh. CKD3 - creat stable s/p Hyponatremia s/p Hypokalemia; s/p Hyperkalemia - replacement ordered HTN - BP better controlled relative to yesterday - s/p Furosemide Incidental CT abdomen pelvis finding of nonspecific right adrenal nodule of 1.3 cm - Plan for outpatient PCP follow-up for imaging such as an adrenal MRI Anxiety / Depression - c/w Ativan PRN s/p Transaminitis GI prophylaxis - c/w Protonix DVT prophylaxis - c/w Lovenox Disposition: - medically stable home with HH when ok with gen surgery Plan/VTE VTE Prophylaxis Ordered?: Yes Plan IVF: Continue Diet: Continue Current (NPO) Activity: Continue Current Therapy: PT (therapeutic purposes) Diagnostics: Repeat Labs in AM Anticipated Discharge: Home VS, I&O, 24H, [facility] Vital Signs/I&O Vital Signs Date Time Temp Pulse Resp B/P (MAP) Pulse Ox O2 Delivery O2 Flow Rate FiO2 12/05/20 06:16 96.6 97 20 146/79 (101) 97 Room Air 12/01/20 10:00 4.0 I&O- Last 24 Hours up to 6 AM 12/05/20 06:00 Intake Total 3920 ml Output Total 4370 ml Balance -450 ml Laboratory Data 24H LABS Laboratory Tests 2 12/05/20 05:44: Nucleated Red Blood Cells % (auto) 0.0, Anion Gap 10, Glomerular Filtration Rate 49.3, Calcium Level 8.7L, Magnesium Level 1.9 CBC/BMP Laboratory Tests 12/05/20 05:44 BRENNA PICKARD MD Dec 05, 2020 13:00
[2020-12-05 21:00] VITALS: BP 143/68
[2020-12-06] MEDS: IPRATROPIUM 0.5MG/ALBUTEROL 2.5MG INH SOL UD 3ML (DUONEB) NEB SCH ×2 (02:25→07:50)
[2020-12-06] MEDS: SODIUM CHLORIDE 0.9% INJ 10 ML SYR IV SCH (05:41)
[2020-12-06 05:47] LABS: HEMATOCRIT 40.8 % (36.0-47.0); HEMOGLOBIN 13.4 g/dl (12.0-15.5); MEAN CORPUSCULAR HEMOGLOBIN 28.8 pg (27.0-33.0); MEAN CORPUSCULAR HGB CONC 32.8 g/dl (32.0-36.5); MEAN CORPUSCULAR VOLUME 87.7 fl (80.0-96.0); PLATELET COUNT, AUTOMATED 254 10^3/uL (150-450); RED BLOOD COUNT 4.65 10^6/uL (4.00-5.40); WHITE BLOOD COUNT 13.5 10^3/uL (4.0-10.0)
[2020-12-06 06:07] LABS: CALCIUM LEVEL 8.5 MG/DL (8.8-10.2); CREATININE FOR GFR 0.98 MG/DL (0.55-1.30); GLOMERULAR FILTRATION RATE 59.9 (>45); MAGNESIUM LEVEL 1.5 MG/DL (1.8-2.4); POTASSIUM SERUM 4.1 MEQ/L (3.5-5.1)
[2020-12-06 06:45] VITALS: BP 149/75
[2020-12-06] MEDS: BUDESONIDE 0.5 MG/2 ML INHALATION SUSPENSION INH SCH (07:50)
[2020-12-06] MEDS: KCL 20MEQ in NS 1000ML 1,000 ML IV SCH (08:34)
[2020-12-06] MEDS: ENOXAPARIN 40MG/0.4ML SYRINGE (J1650 PER 10MG) SC SCH (08:35)
[2020-12-06] MEDS: MAG SULF 1GM/100ML (MAG RUN) 1 GM in IV 1 EA IV SCH ×2 (08:35→09:56)
[2020-12-06] MEDS: ALPRAZolam 0.25 MG TAB PO SCH (08:35)
[2020-12-06] MEDS: LOMOTIL 2.5MG/0.025MG TABLET PO SCH (08:35)
--- NOTE | 2020-12-06 08:54 | IPNPDOC ---
Text Note Date of Service The patient was seen on 12/06/20. NOTE General Surgery Dr Joiner. 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 The patient has had high output from her ileostomy, but this has now improved with the addition of Imodium 3 times daily. Consistency has been thicker. She had 1400 mL documented output from her ostomy yesterday compared with 5375 the previous day. She is tolerating regular food. Afebrile, VSS. The patient is OOB. Abdomen round, soft. Incisions are healing. Ileostomy with no tenderness, no prolapsing. The patient is postop robotic assisted laparoscopic repair of parastomal hernia, release of bowel obstruction, with postobstructive increased output from ileostomy. The patient is reviewed and examined as per Dr. Joiner this morning. 1400ml of output documented from ostomy yesterday which is improved with Imodium. Continue Imodium to 3 times daily. Discussed with the patient she could be discharged home when medically cleared and relayed to hospitalist, Dr Aggarwal. Her magnesium was noted to be low this morning and is being supplemented per hospitalist. Reviewed with the patient and ensuring to get plenty of fluid and electrolyte intake at home. The patient verbalized understanding and agreement. Physical therapy evaluated yesterday and was cleared for discharge. Follow-up with Dr. Joiner in 2 weeks in the office Anahi KAPLAN, I+O VSAnahi, I+O Laboratory Tests 12/06/20 05:27 Vital Signs Date Time Temp Pulse Resp B/P (MAP) Pulse Ox O2 Delivery O2 Flow Rate FiO2 12/06/20 06:45 97.4 97 18 149/75 (99) 97 Room Air 12/01/20 10:00 4.0 I&O- Last 24 Hours up to 6 AM 12/06/20 05:59 Intake Total 1160 ml Output Total 2600 ml Balance -1440 ml Yary Titus Dec 06, 2020 08:54
[2020-12-06] MEDS ORDERED: DIPH2.5T15 PO (10:51)
--- NOTE | 2020-12-06 11:08 | DS.PDOC ---
Discharge Summary General Date of Admission Nov 23, 2020 at 19:11 Date of Discharge 12/06/20 Primary Care Physician: Yoana Godinez Attending Physician: Yehuda Aggarwal MD Specialist/Consultants Involve: JOHN WOODS MD Discharge Summary PROCEDURES PERFORMED DURING STAY: [None]. ADMITTING DIAGNOSES: 1. . DISCHARGE DIAGNOSES: 1. . COMPLICATIONS/CHIEF COMPLAINT: Sbo (Small Bowel Obstruction). HISTORY OF PRESENT ILLNESS: . HOSPITAL COURSE: . DISCHARGE MEDICATIONS: Please see below. ALLERGIES: Please see below. PHYSICAL EXAMINATION ON DISCHARGE: VITAL SIGNS: Please see below. GENERAL: HEENT: NECK: CARDIOVASCULAR EXAMINATION: RESPIRATORY EXAMINATION: ABDOMINAL EXAMINATION: EXTREMITIES: SKIN: NEUROLOGICAL EXAMINATION: PSYCHIATRIC EXAMINATION: LABORATORY DATA: Please see below. IMAGING: PROGNOSIS: ACTIVITY: [As tolerated]. DIET: DISCHARGE PLAN: DISPOSITION: . DISCHARGE INSTRUCTIONS: 1. . ITEMS TO FOLLOWUP ON ON OUTPATIENT: 1. . DISCHARGE CONDITION: [Stable]. TIME SPENT ON DISCHARGE: minutes. Vital Signs/I&Os Vital Signs Date Time Temp Pulse Resp B/P (MAP) Pulse Ox O2 Delivery O2 Flow Rate FiO2 12/06/20 06:45 97.4 97 18 149/75 (99) 97 Room Air 12/01/20 10:00 4.0 I&O- Last 24 Hours up to 6 AM 12/06/20 06:00 Intake Total 1160 ml Output Total 2600 ml Balance -1440 ml Laboratory Data Labs 24H Laboratory Tests 2 12/06/20 05:27: Nucleated Red Blood Cells % (auto) 0.0, Anion Gap 8, Glomerular Filtration Rate 59.9, Calcium Level 8.5L, Magnesium Level 1.5L CBC/BMP Laboratory Tests 12/06/20 05:27 Discharge Medications Scheduled Alprazolam (Alprazolam) 0.25 Mg Tablet, 0.25 MG PO BID, (Reported) Aspirin (Aspirin) 81 Mg Tab.chew, 81 MG PO DAILY, (Reported) Bupropion HCl (Bupropion HCl) 100 Mg Tablet, 200 MG PO DAILY, (Reported) Bupropion HCl (Bupropion HCl) 100 Mg Tablet, 100 MG PO QPM, (Reported) Calcium/Magnesium/Zinc (Mjqldiy-Mhyeybihs-Plud Tablet) 1 Each Tablet, 1 TAB PO DAILY, (Reported) Cholecalciferol (Vitamin D3) (Vitamin D3) 125 Mcg Capsule, 125 MCG PO DAILY, (Reported) Diphenoxylate HCl/Atropine (Diphenoxylate-Atrop 2.5-0.025) 1 Each Tablet, 1 EA PO TID Furosemide (Furosemide) 40 Mg Tablet, 40 MG PO BID, (Reported) L.acidoph/L.bulg/B.bif/S.therm (Bacid Caplet) 1 Each Tablet, 1 TAB PO BID, (Reported) Lisinopril (Lisinopril) 5 Mg Tablet, 5 MG PO DAILY, (Reported) Multivitamins (Thera M Plus Tablet) 1 Each Tablet, 1 TAB PO DAILY, (Reported) Mv-Min/FA/Vit K/Lycop/Lut/Zeax (Ocuvite Eye Plus Multi Tablet) 1 Each Tablet, 1 TAB PO DAILY, (Reported) Omeprazole (Omeprazole) 20 Mg Capsule.dr, 20 MG PO QPM, (Reported) AROUND DINNERTIME Spironolactone (Spironolactone) 25 Mg Tablet, 25 MG PO DAILY, (Reported) Umeclidinium Brm/Vilanterol Tr (Anoro Ellipta 62.5-25 Mcg INH) 1 Each Blst.w.dev, 1 PUFF INH DAILY, (Reported) Vitamin B Complex (Vitamin B Complex) 1 Each Tablet, 1 TAB PO DAILY, (Reported) [Klor Con Ef 25MEQ] , 25 MEQ PO DAILY, (Reported) MIX WITH WATER Scheduled PRN Albuterol Sulfate (Proair Hfa) 8.5 Gm Hfa.aer.ad, 2 PUFF INH QID PRN for SHORTNESS OF BREATH, (Reported) Calcium Carb/Magnesium Hydrox (Antacid 1000-200 mg Tab Chew) 1 Each Tab.chew, 2 CHW PO 5XD PRN for HEARTBURN/INDIGESTION, (Reported) Ipratropium/Albuterol Sulfate (Combivent Respimat 20-100 Mcg) 4 Gm Mist.inhal, 1 PUFF INH QID PRN for SHORTNESS OF BREATH, (Reported) Simethicone (Gas-X) 125 Mg Capsule, 125 MG PO QID PRN for GAS PAIN, (Reported) Allergies Coded Allergies: Penicillins (Verified Allergy, Intermediate, HIVES, 11/23/20) sertraline (Verified Adverse Reaction, Intermediate, BP ISSUES(non specific), 11/23/20) Yehuda Aggarwal MD Dec 06, 2020 11:08
== END 2020-12-06 14:00 | disposition home health service (06) | DRG 336 ==
LOC: M ED 19:10 → M ED INP 19:11 → M MSPAV 11-24 02:02
PROVIDERS: ADMIT Internal Medicine; ATTEND Family Medicine
PROC: 02HV33Z Insertion of Infusion Device into Superior Vena Cava, Percutaneous Approach (ICD-10-PCS; 2020-11-28)
PROC: 0WUF4JZ Supplement Abdominal Wall with Synthetic Substitute, Percutaneous Endoscopic Approach (ICD-10-PCS; 2020-11-30)
PROC: 8E0W4CZ Robotic Assisted Procedure of Trunk Region, Percutaneous Endoscopic Approach (ICD-10-PCS; 2020-11-30)
PROC: 0DNU4ZZ Release Omentum, Percutaneous Endoscopic Approach (ICD-10-PCS; principal; 2020-11-30 18:00)
DX: K43.3 Parastomal hernia with obstruction, without gangrene (principal); E87.1 Hypo-osmolality and hyponatremia; K94.19 Other complications of enterostomy; N18.30 Chronic kidney disease, stage 3 unspecified; I12.9 Hypertensive chronic kidney disease with stage 1 through stage 4 chronic kidney disease, or unspecified chronic kidney disease; E87.6 Hypokalemia; Z79.82 Long term (current) use of aspirin; Z79.899 Other long term (current) drug therapy; Z88.0 Allergy status to penicillin; Z88.8 Allergy status to other drugs, medicaments and biological substances; J44.9 Chronic obstructive pulmonary disease, unspecified; K21.9 Gastro-esophageal reflux disease without esophagitis; F17.200 Nicotine dependence, unspecified, uncomplicated; F41.9 Anxiety disorder, unspecified; Z85.048 Personal history of other malignant neoplasm of rectum, rectosigmoid junction, and anus; Z92.3 Personal history of irradiation; Z92.21 Personal history of antineoplastic chemotherapy; E87.5 Hyperkalemia

== ENCOUNTER 2020-12-14 15:28 | Observation (INO) | payer MEDICARE, OTHER ==
[~2020-12-14] VITALS: Ht 170.2 cm; Wt 105.9 kg
[~2020-12-14 15:28] MED LIST changes: +ALPR0.25 PO; +ANOR1AER INH; +ANOR1AER PO; +ANTA1CHW6 PO; +ASPI1CHW3 PO; +ASPI81CH33 PO; +B-COTAB4 PO; +BACITAB PO; +BUPR-69 PO; +BUPR100T10 PO; +CAL-TAB2 PO; +CHOL50003 PO; +COMBAER6 INH; +DIPH2.5T15 PO; +FURO40TA2 PO; +KLOR CON EF PO; +KLOR10TA76 PO; +LASI40TA9 PO; +LISI-898 PO; +OCUVTAB8 PO; +OMEP-218 PO; +OMEP1CAP73 PO; +PROAAER10 INH; +PROBCAP14 PO; +SIME125C4 PO; +SPIR-10 PO; +VITMTA PO; +XANA0.25 PO
--- NOTE | 2020-12-14 15:55 | REP ---
INDICATION: CHEST PAIN. COMPARISON: 07/01/2006. TECHNIQUE: Single portable AP view of the chest was performed. FINDINGS: There is no acute infiltrate or pulmonary edema. Lungs are clear. The heart is not significantly enlarged. The mediastinal silhouette is unremarkable, except for mild calcification of the thoracic aorta. The visualized osseous structures are intact. IMPRESSION: No acute pulmonary disease. <Electronically signed by Elmo Ledesma > 12/14/20 2145
[2020-12-14 16:03] LABS: BASO # 0.1 10^3/uL (0.0-0.2); BASO % 0.6 % (0.0-1.0); EOS # 0.2 10^3/uL (0.0-0.5); EOS % 1.5 % (0.0-3.0); HEMATOCRIT 41.7 % (36.0-47.0); LYMPH % 8.2 % (24.0-44.0); MEAN CORPUSCULAR HEMOGLOBIN 28.8 pg (27.0-33.0); MEAN CORPUSCULAR HGB CONC 33.6 g/dl (32.0-36.5); MEAN CORPUSCULAR VOLUME 85.8 fl (80.0-96.0); MONO # 1.1 10^3/uL (0.0-0.8); MONO % 8.9 % (2.0-8.0); NEUTROPHILS # 9.9 10^3/uL (1.5-8.5); NEUTROPHILS % 79.8 % (36.0-66.0); PLATELET COUNT, AUTOMATED 433 10^3/uL (150-450); RED BLOOD COUNT 4.86 10^6/uL (4.00-5.40); WHITE BLOOD COUNT 12.4 10^3/uL (4.0-10.0)
[2020-12-14 16:32] LABS: ALBUMIN 3.2 GM/DL (3.2-5.2); BILIRUBIN,DIRECT 0.1 MG/DL (0.0-0.2); BILIRUBIN,TOTAL 0.4 MG/DL (0.2-1.0); CALCIUM LEVEL 9.1 MG/DL (8.8-10.2); CREATININE FOR GFR 1.35 MG/DL (0.55-1.30); GLOMERULAR FILTRATION RATE 41.4 (>45); POTASSIUM SERUM 4.3 MEQ/L (3.5-5.1)
[2020-12-14 17:07] LABS: MAGNESIUM LEVEL 0.8 MG/DL (1.8-2.4)
[2020-12-14] MEDS ORDERED: MAG SULF 1GM/100ML (MAG RUN) 1 GM in IV 1 EA IV ONE (17:10)
[2020-12-14] MEDS ORDERED: HOME MED LIST COMPLETE! XX SCH (19:00)
[2020-12-14] MEDS ORDERED: LOMO2.5T PO (19:00)
--- NOTE | 2020-12-14 19:16 | ECGEPIP ---
[facility] - ED Test Date: 2020-12-14 Pat Name: VALENTIN WHALEY Department: Room: - Gender: Female Barber Apprentice: SUSANNAH : 1950 Requested By: MAGGY GUADARRAMA Order Number: [id number] Reading MD: John Montoya Measurements Intervals [place] Rate: 107 P: 57 WA: 162 QRS: 34 QRSD: 52 T: 52 QT: 302 QTc: 403 Interpretive Statements Sinus tachycardia Low voltage QRS Nonspecific ST T wave changes 11/23/[address] T wave changes Electronically Signed on 12-14-2020 19:16:18 EDT by John Montoya
[2020-12-14] MEDS ORDERED: ALBUTEROL 90 MCG/ACT 8GM HFA INHALER INH PRN (19:20)
[2020-12-14] MEDS ORDERED: ACETAMINOPHEN TAB 650MG DOSE (2X325MG) PO PRN (19:20)
[2020-12-14] MEDS ORDERED: COMBIVENT RESPIMAT 100-20MCG INHALER 4GM INH PRN (19:20)
--- NOTE | 2020-12-14 19:26 | HPEPDOC ---
[facility] Medical History & Physical Date of Admission Dec 14, 2020 Date of Service: Dec 14, 2020 Attending Physician: OSCAR FRASER MD History and Physical CHIEF COMPLAINT: [70 y/o female c/o chest pressure starting a few hours ago] HISTORY OF PRESENT ILLNESS: [This is a 70 y/o female with a pmh of htn, copd, colorectal ca s/p colectomy with ileostomy placement who presents to our ED with a cc of chest pressure that began this afternoon. Patient describes the sensation as if someone were poking her central chest with three fingers and is associated with frequent belching. Patient recently stayed in our hospital from 11/23-12/06 for an sbo in which she underwent surgical intervention for correction of parastomal hernia, reduction of portion of incarcerated small bowel and release of obstruction. Patient states that after she left the hospital, she felt very well and was able to be active for a few days. Patient states that she then began to decline over the course of the past week and began to have increased fatigue, malaise, nausea, dizziness, headaches and decreased appetite. Patient states that she has been trying to manage these symptoms but when her chest pressure began today, she decided to come to the emergency department for evaluation. At the time of my exam, patient denies fevers, chills, cough, wheezing, sob, vomiting, abd pain, dysuria, hematuria, pedal edema, calf pain, palpitations, syncope, recent falls. Workup performed in the ED notable for hypomagnesemia of 0.8 and vu with cr of 1.35 from baseline of around 1. ] PAST MEDICAL HISTORY: 1. [See HPI PAST SURGICAL HISTORY: 1. [Infusaport insertion and removal]. 2. [Colon resection x2 with ileostomy]. 3. [Cholecystectomy 4. Tubal ligation 5. Right knee arthroscopy 6. Hernia repair and sbo release as mentioned in hpi]. SOCIAL HISTORY: Tobacco use:[Current smoker. 2-3 cigarettes per day] ETOH: [Denies] Illicit drug use: [Denies] FAMILY HISTORY: Reviewed - none pertinent ALLERGIES: Please see below. REVIEW OF SYSTEMS: CONSTITUTIONAL: [Denies fevers, chills]. HEENT: [Denies uri type sx]. CARDIOVASCULAR: [See HPI]. RESPIRATORY: [See HPI]. GASTROINTESTINAL: [See HPI]. GENITOURINARY: [Denies dysuria]. SKIN: [Denies rash]. MUSCULOSKELETAL: [Denies acute joint/back pain]. NEUROLOGICAL: [Denies syncope, paresthesias]. ENDOCRINE: [Denies hx of DM]. HEMATOLOGIC/LYMPHATIC: [Denies easy bruising]. HOME MEDICATIONS: Please see below. PHYSICAL EXAMINATION: VITAL SIGNS: Please see below. GENERAL APPEARANCE: [This is a 70 y/o female who is alert and oriented to all questioning. She does not appear to be in any distress]. HEENT: [No mass or lesion. EOMI. No scleral icterus. Nares patent. Oral mucosa moist.]. CARDIOVASCULAR: [Tachy rate, regular rhythm. No murmurs, rubs, gallops]. LUNGS: [Good air flow b/l. No wheezing, rales, rhonchi.]. ABDOMEN: [Soft, nontender]. MUSCULOSKELETAL: [No joint deformity]. EXTREMITIES: [Trace pedal edema noted. No overlying skin changes. Pulses intact.]. NEUROLOGICAL: [Speech clear. A+OX3. No focal deficits]. PSYCHIATRIC: [Anxious mood, affect appropriate.]. LABORATORY DATA: See below. IMAGING: [CXR: FINDINGS: There is no acute infiltrate or pulmonary edema. Lungs are clear. The heart is not significantly enlarged. The mediastinal silhouette is unremarkable, except for mild calcification of the thoracic aorta. The visualized osseous structures are intact. IMPRESSION: No acute pulmonary disease.] MICROBIOLOGY: Please see below. ASSESSMENT: [This is a 70 y/o female with a pmh of htn, copd, colorectal ca s/p colectomy with ileostomy placement who presents to our ED with a cc of chest pressure that began this afternoon. Patient describes the sensation as if someone were poking her central chest with three fingers and is associated with frequent belching. Workup performed in the ED notable for hypomagnesemia of 0.8 and vu with cr of 1.35 from baseline of around 1.]. . PLAN: 1. [Hypomagnesemia - Current mag 0.8, likely decreased d/t decreased oral intake from generalized malaise and recent surgical procedure - Patient received one mag run in the ED. At this time I will order two more. - Will trend mag q6 - telemetry - admit to med surg under obs for tx 2. VU - patients cr acutely elevated to 1.35 from baseline of around 1. - likely secondary to dehydration - will give 500cc bolus followed by maintenance fluids - will repeat bmp in the am 3. Chest pressure - At this time, seems more likely to be secondary to reflux/gas - will switch patients omeprazole to iv protonix while inpatient to see if this provides relief - simethicone prn - trend cardiac markers 4. COPD - continue at home inhalers 5. HTN - continue lisinopril 6. Depression/anxiety - Continue wellbutrin, xanax DVT prophylaxis - lovenox]. Vital Signs Vital Signs Date Time Temp Pulse Resp B/P (MAP) Pulse Ox O2 Delivery O2 Flow Rate FiO2 12/14/20 18:15 98 114/58 (76) 12/14/20 15:51 97.9 20 100 Room Air Laboratory Data Labs 24H Laboratory Tests 2 12/14/20 15:47: POC Troponin I (Misc) 0.00 12/14/20 15:49: Immature Granulocyte % (Auto) 1.0, Neutrophils (%) (Auto) 79.8H, Lymphocytes (%) (Auto) 8.2L, Monocytes (%) (Auto) 8.9H, Eosinophils (%) (Auto) 1.5, Basophils (%) (Auto) 0.6, Neutrophils # (Auto) 9.9H, Lymphocytes # (Auto) 1.0L, Monocytes # (Auto) 1.1H, Eosinophils # (Auto) 0.2, Basophils # (Auto) 0.1, Nucleated Red Blood Cells % (auto) 0.0, Anion Gap 8, Glomerular Filtration Rate 41.4L, Calcium Level 9.1, Magnesium Level 0.8*L, Total Bilirubin 0.4, Direct Bilirubin 0.1, Aspartate Amino Transf (AST/SGOT) 33, Alanine Aminotransferase (ALT/SGPT) 90H, Alkaline Phosphatase 110, Total Protein 7.0, Albumin 3.2, Albumin/Globulin Ratio 0.8L, Lipase 188 CBC/BMP Laboratory Tests 12/14/20 15:49 Home Medications Scheduled Alprazolam (Alprazolam) 0.25 Mg Tablet, 0.25 MG PO BID Aspirin (Aspirin) 81 Mg Tab.chew, 81 MG PO DAILY Bupropion HCl (Bupropion HCl) 100 Mg Tablet, 200 MG PO DAILY Bupropion HCl (Bupropion HCl) 100 Mg Tablet, 100 MG PO QHS Calcium/Magnesium/Zinc (Cvtygxp-Jgudmlmdw-Qidz Tablet) 1 Each Tablet, 1 TAB PO DAILY Cholecalciferol (Vitamin D3) (Vitamin D3) 125 Mcg Capsule, 125 MCG PO DAILY Diphenoxylate HCl/Atropine (Lomotil 2.5-0.025 mg Tablet) 1 Each Tablet, 1 TAB PO TID L.acidoph/L.bulg/B.bif/S.therm (Bacid Caplet) 1 Each Tablet, 1 TAB PO BID Lisinopril (Lisinopril) 5 Mg Tablet, 5 MG PO DAILY Multivitamins (Thera M Plus Tablet) 1 Each Tablet, 1 TAB PO DAILY Mv-Min/FA/Vit K/Lycop/Lut/Zeax (Ocuvite Eye Plus Multi Tablet) 1 Each Tablet, 1 TAB PO DAILY Omeprazole (Omeprazole) 20 Mg Capsule.dr, 20 MG PO QPM AROUND DINNERTIME Umeclidinium Brm/Vilanterol Tr (Anoro Ellipta 62.5-25 Mcg INH) 1 Each Blst.w.dev, 1 PUFF INH DAILY Vitamin B Complex (Vitamin B Complex) 1 Each Tablet, 1 TAB PO DAILY Scheduled PRN Albuterol Sulfate (Proair Hfa) 8.5 Gm Hfa.aer.ad, 2 PUFF INH QID PRN for SHORTNESS OF BREATH Calcium Carb/Magnesium Hydrox (Antacid 1000-200 mg Tab Chew) 1 Each Tab.chew, 2 CHW PO 5XD PRN for HEARTBURN/INDIGESTION Ipratropium/Albuterol Sulfate (Combivent Respimat 20-100 Mcg) 4 Gm Mist.inhal, 1 PUFF INH QID PRN for SHORTNESS OF BREATH Allergies Coded Allergies: Penicillins (Verified Allergy, Intermediate, HIVES, 11/23/20) sertraline (Verified Adverse Reaction, Intermediate, BP ISSUES(non specific), 11/23/20) A-FIB/CHADSVASC A-FIB History Current/History of A-Fib/PAF?: No NEELAM SULLIVAN Dec 14, 2020 19:26
[2020-12-14] MEDS: NS 1,000 ML IV SCH (19:45)
[2020-12-14] MEDS: MAG SULF 1GM/100ML (MAG RUN) 1 GM in IV 1 EA IV SCH ×2 (19:46→20:30)
[2020-12-14] MEDS ORDERED: NS 500 ML IV ONE (20:00)
--- NOTE | 2020-12-14 20:01 | REP ---
INDICATION: vu. COMPARISON: 05/11/2020. TECHNIQUE: Real-time sonographic evaluation of the kidneys is performed. FINDINGS: Renal cortical echogenicity pattern is normal bilaterally and contours are smooth. There is no evidence of hydronephrosis, cyst, mass, or calculus in either kidney. The right kidney measures 10.8 x 4.5 x 3.9 cm. Left renal dimensions are 9.9 x 3.9 x 4.0 cm. The urinary bladder is unremarkable. IMPRESSION: Negative renal ultrasound. <Electronically signed by Elmo Ledesma > 12/14/201957
[2020-12-14] MEDS ORDERED: buPROPion 100 MG TAB PO SCH (21:00)
[2020-12-14] MEDS: LOMOTIL 2.5MG/0.025MG TABLET PO SCH (21:00)
[2020-12-14] MEDS: LACTOBACILLUS ACIDOPHILUS CAP (BACID) PO SCH (21:32)
[2020-12-14] MEDS: ALPRAZolam 0.25 MG TAB PO SCH (21:32)
[2020-12-14] MEDS: PANTOPRAZOLE 40MG VIAL (C9113 PER 1) IV SCH (21:32)
[2020-12-14] MEDS ORDERED: SIMETHICONE 80MG CHEW TAB PO PRN (21:40)
[2020-12-14] MEDS ORDERED: ONDANSETRON 4 MG TAB PO PRN (21:40)
[2020-12-14 21:48] LABS: INR 0.93; PROTHROMBIN TIME 12.8 SECONDS (12.7-14.5)
[2020-12-14 21:49] LABS: PARTIAL THROMBOPLASTIN TIME 26.9 SECONDS (25.9-37.0)
[2020-12-14 22:12] LABS: CK-MB VALUE MASS 1.1 NG/ML (<3.6); CPK CREATINE PHOSPHOKINASE 83 U/L (26-192); MB/CK RELATIVE INDEX 1.33 (< OR =4); TROPONIN I < 0.02 NG/ML (< 0.10)
[2020-12-15 00:34] LABS: CK-MB VALUE MASS 1.1 NG/ML (<3.6); CPK CREATINE PHOSPHOKINASE 47 U/L (26-192); MB/CK RELATIVE INDEX 2.34 (< OR =4); TROPONIN I < 0.02 NG/ML (< 0.10)
[2020-12-15] MEDS: NS 1,000 ML IV SCH (01:46)
[2020-12-15 02:21] LABS: BLOOD UREA NITROGEN 16 MG/DL (7-18); CALCIUM LEVEL 9.2 MG/DL (8.8-10.2); CARBON DIOXIDE LEVEL 25 MEQ/L (21-32); CHLORIDE LEVEL 101 MEQ/L (98-107); CREATININE FOR GFR 1.23 MG/DL (0.55-1.30); GLOMERULAR FILTRATION RATE 46.1 (>45); GLUCOSE, FASTING 96 MG/DL (70-100); MAGNESIUM LEVEL 1.6 MG/DL (1.8-2.4); POTASSIUM SERUM 4.3 MEQ/L (3.5-5.1); SODIUM LEVEL 136 MEQ/L (136-145)
[2020-12-15 05:22] LABS: RSV AMPLIFICATION NEGATIVE (NEGATIVE)
[2020-12-15 06:58] LABS: ALBUMIN 2.7 GM/DL (3.2-5.2); ALT/SGPT 79 U/L (12-78); BILIRUBIN,TOTAL 0.2 MG/DL (0.2-1.0); BLOOD UREA NITROGEN 16 MG/DL (7-18); CARBON DIOXIDE LEVEL 26 MEQ/L (21-32); CHLORIDE LEVEL 102 MEQ/L (98-107); CK-MB VALUE MASS < 1.0 NG/ML (<3.6); CPK CREATINE PHOSPHOKINASE 37 U/L (26-192); CREATININE FOR GFR 1.25 MG/DL (0.55-1.30); GLOMERULAR FILTRATION RATE 45.2 (>45); GLUCOSE, FASTING 120 MG/DL (70-100); MAGNESIUM LEVEL 1.6 MG/DL (1.8-2.4); POTASSIUM SERUM 3.8 MEQ/L (3.5-5.1); SODIUM LEVEL 134 MEQ/L (136-145); TOTAL PROTEIN 6.7 GM/DL (6.4-8.2); TROPONIN I < 0.02 NG/ML (< 0.10)
--- NOTE | 2020-12-15 07:33 | ECGEPIP ---
[facility] - ED Test Date: 2020-12-14 Pat Name: VALENTIN WHALEY Department: Room: [place] [address] Gender: Female Job Honer: [place] : 1950 Requested By: MAGGY GUADARRAMA Order Number: [id number] Reading MD: Sunny Benitez Measurements Intervals [place] Rate: 95 P: 56 GA: 160 QRS: 8 QRSD: 62 T: 13 QT: 348 QTc: 437 Interpretive Statements Normal sinus rhythm Low voltage QRS NONSPECIFIC T WAVE ABNORMALITY(S) SIMILAR TO PRIOR ON SAME DATE Electronically Signed on 12-15-2020 7:32:33 EDT by Sunny Benitez
[2020-12-15 08:13] VITALS: BP 145/70
[2020-12-15] MEDS ORDERED: SLOWTAB2 PO (08:55)
[2020-12-15] MEDS ORDERED: MULTIVITAMINS/MINERALS THERAP 1 TAB PO SCH (09:00)
[2020-12-15] MEDS ORDERED: ENOXAPARIN 30MG/0.3ML SYRINGE (J1650 PER 10MG) SC SCH (09:00)
[2020-12-15] MEDS ORDERED: MAG SULF 1GM/100ML (MAG RUN) 1 GM in IV 1 EA IV ONE ×2 (09:00→11:00)
[2020-12-15] MEDS ORDERED: ASPIRIN 81 MG CHEW TABLET PO SCH (09:00)
[2020-12-15] MEDS ORDERED: lisinopriL 5 MG TAB PO SCH (09:00)
[2020-12-15] MEDS ORDERED: buPROPion 100 MG TAB PO SCH (09:00)
[2020-12-15] MEDS ORDERED: SLF 3 ML SYR IV PRN (09:10)
--- NOTE | 2020-12-15 09:27 | REP ---
INDICATION: edema. COMPARISON: None. TECHNIQUE: Survey ultrasound imaging of the deep venous system of both lower extremities was performed including color and spectral Doppler evaluation with retail account representative images obtained. Segmental venous compression in calf vein augmentation were performed. FINDINGS: There is no evidence of deep venous thrombosis of either lower extremity. IMPRESSION: Normal bilateral lower extremity venous Doppler ultrasound. <Electronically signed by Diogenes Mejia > 12/15/20 [id number]
[2020-12-15] MEDS: LACTOBACILLUS ACIDOPHILUS CAP (BACID) PO SCH (10:17)
[2020-12-15] MEDS: ALPRAZolam 0.25 MG TAB PO SCH (10:18)
[2020-12-15] MEDS: LOMOTIL 2.5MG/0.025MG TABLET PO SCH (10:18)
[2020-12-15] MEDS: PANTOPRAZOLE 40MG VIAL (C9113 PER 1) IV SCH (10:19)
[2020-12-15 13:15] LABS: BLOOD UREA NITROGEN 14 MG/DL (7-18); CARBON DIOXIDE LEVEL 26 MEQ/L (21-32); CHLORIDE LEVEL 102 MEQ/L (98-107); CK-MB VALUE MASS < 1.0 NG/ML (<3.6); CPK CREATINE PHOSPHOKINASE 33 U/L (26-192); GLOMERULAR FILTRATION RATE 47.4 (>45); GLUCOSE, FASTING 87 MG/DL (70-100); MB/CK RELATIVE INDEX 3.03 (< OR =4); POTASSIUM SERUM 4.1 MEQ/L (3.5-5.1); SODIUM LEVEL 134 MEQ/L (136-145); TROPONIN I < 0.02 NG/ML (< 0.10)
[2020-12-15] MEDS ORDERED: SLF 3 ML SYR IV SCH (14:00)
--- NOTE | 2020-12-16 08:23 | DSES ---
DISCHARGE SUMMARY DATE OF ADMISSION: 12/14/2020 DATE OF DISCHARGE: 12/15/2020 PRIMARY DISCHARGE DIAGNOSES: 1. Chest pain, myocardial infarction ruled out. 2. Hypomagnesemia. 3. Acute kidney injury. 4. Compensated chronic obstructive pulmonary disease. 5. Hypertension. 6. Depression. 7. Anxiety. DISCHARGE MEDICATIONS: 1. Slow-Mag one tablet twice a day. Repeat basic metabolic panel with magnesium, ionized calcium on Saturday12/19/2020 to be sent to her primary care physician. 2. Albuterol two puffs four times daily as needed. 3. Alprazolam 0.25 twice a day. 4. Aspirin 81 daily. 5. Bupropion 200 daily, 100 mg once daily at bedtime. 6. Antacids two tablets five times daily as needed, 7. Vitamin D one tablet 125 mcg daily. 8. Lomotil one tablet three times a day. 9. Combivent inhaled four times daily as needed. 10. Bacid one tablet twice a day. 11. Lisinopril 5 daily. 12. Multivitamin one tablet daily. 13. Prilosec 20 daily. 14. Anora Ellipta one puff inhaled daily. 15. Vitamin D one tablet daily. DISCHARGE INSTRUCTIONS: Repeat basic metabolic panel, magnesium, ionized calcium on 12/19/2020 to be sent and faxed to her primary care physician to adjust her electrolytes. HOSPITAL COURSE: This is a 70-year-old female who presented to the Emergency Room with complaints of chest pain and belching. The patient was found to have hypomagnesemia with a magnesium of 0.8, acute kidney injury at 1.35 from baseline of 1. EKG showed no acute ST-T wave changes. Chest x-ray showed no acute abnormalities. Heart is not enlarged. Mild calcification of the thoracic aorta. Troponins were negative times three sets. Renal ultrasound was negative for hydronephrosis or kidney stone. She was given intravenous fluids with resolution of her acute kidney injury to 1.23 and 1.2 on hospital discharge. The patient was supplemented with potassium intravenously with repeat magnesium 2.0 from admission magnesium of 0.8. The patient had resolution of her chest pain. Ultrasound of her upper and lower extremities was negative for DVT. The patient is discharged in stable condition with outpatient followup with her primary care physician. PHYSICAL EXAM ON DISCHARGE: VITAL SIGNS: Temperature 97.9, pulse 93, respiratory rate 20, blood pressure 145/70, 96% on room air. GENERAL: Generally awake, alert and oriented to person, place, and time. Answering questions appropriately. LUNGS: Clear to auscultation, no wheezing, rales, or rhonchi. HEART: S1, S2, sinus rhythm. ABDOMEN: Soft, nontender, nondistended. Positive bowel sounds. No rebound or guarding. EXTREMITIES: No cyanosis or clubbing. Laboratory data, microbiology, imaging studies, please see the chart. Time spent on discharge 30 minutes. MTDD
== END 2020-12-15 12:25 | disposition home or self-care (01) ==
LOC: EDBD 15:28 → M ED 15:28 → M ED INP 15:29 → ENRESERV 12-15 06:40 → M PCU 12-15 08:39
PROVIDERS: ADMIT Family Medicine; ATTEND Family Medicine
DX: E83.42 Hypomagnesemia (principal); N17.9 Acute kidney failure, unspecified; R07.89 Other chest pain; J44.9 Chronic obstructive pulmonary disease, unspecified; I10 Essential (primary) hypertension; C18.9 Malignant neoplasm of colon, unspecified; F17.218 Nicotine dependence, cigarettes, with other nicotine-induced disorders; F41.9 Anxiety disorder, unspecified; F32.9 Major depressive disorder, single episode, unspecified; Z79.82 Long term (current) use of aspirin; Z79.899 Other long term (current) drug therapy; Z88.0 Allergy status to penicillin; Z88.8 Allergy status to other drugs, medicaments and biological substances
CPT/HCPCS: 36415; 71045; 76775; 80048; 80053; 80076; 82550; 82553; 83690; 83735; 84484; 85025; 85610; 85730; 87631; 93005; 93041; 93970; 96361; 96365; 96375; 96376; 99285; C9113; G0378; J3475

== ENCOUNTER → 2020-12-19 | Outpatient (REF) | payer MEDICARE, OTHER ==
[~2020-12-19] MED LIST changes: +BUPR-364 PO; -BUPR100T10 PO; -KLOR10TA76 PO; -LISI-898 PO; +LISI5TAB11 PO; +LOMO2.5T PO; +OMEP-173 PO; -OMEP-218 PO; +POTA-136 PO; +SLOWTAB2 PO
== END ==
LOC: M LAB REF 14:37
PROVIDERS: ATTEND Nurse Practitioner Adult Health
DX: S37.099A Other injury of unspecified kidney, initial encounter (principal); X58.XXXA Exposure to other specified factors, initial encounter; Y92.9 Unspecified place or not applicable; Y93.9 Activity, unspecified; Y99.9 Unspecified external cause status

== ENCOUNTER → 2021-01-03 | Outpatient (REF) | payer MEDICARE, OTHER ==
[~2021-01-03] MED LIST changes: -BUPR-364 PO; +BUPR100T10 PO; +KLOR10TA76 PO; +LISI-898 PO; -LISI5TAB11 PO; -OMEP-173 PO; +OMEP-218 PO; -POTA-136 PO
== END ==
LOC: M LAB REF 15:38
PROVIDERS: ATTEND Physician Assistant
DX: R30.0 Dysuria (principal)

== ENCOUNTER → 2021-01-18 | Outpatient (REF) | payer MEDICARE, OTHER | LOC: M LAB REF 17:15 | PROVIDERS: ATTEND Internal Medicine Nephrology | DX: E87.6 Hypokalemia (principal) ==

== ENCOUNTER → 2021-02-14 | Outpatient (REF) | payer MEDICARE, OTHER ==
[~2021-02-14] MED LIST changes: -KLOR10TA76 PO; +POTA-136 PO
== END ==
LOC: M LAB REF 13:10
PROVIDERS: ATTEND Internal Medicine Nephrology
DX: E87.6 Hypokalemia (principal)

== ENCOUNTER → 2021-03-28 | Outpatient (CLI) | payer MEDICARE, OTHER ==
--- NOTE | 2021-03-28 16:07 | REP ---
INDICATION: PAIN COMPARISON: None. TECHNIQUE: AP, lateral, bilateral oblique and sunrise views. FINDINGS: Advanced tricompartmental osteoarthritic degenerative changes include increased sclerosis to the tibial plateau and posterior patellar margin along with associated primarily medial and patellofemoral joint space narrowing, marginal osteophytosis and minimal chondrocalcinosis. No acute fracture or dislocation. No obvious effusion. IMPRESSION: Early advanced tricompartmental osteoarthritic degenerative changes. <Electronically signed by Jorge Luis Zapien > 03/28/21 [id number]
--- NOTE | 2021-03-28 16:08 | REP ---
INDICATION: PAIN COMPARISON: None. TECHNIQUE: AP and frog-lateral views of the right hip FINDINGS: Generalized age-related changes include subtle increased sclerosis to the acetabulum with joint space narrowing. No further overt osteoarthritic or significant degenerative changes are appreciated. No evidence for acute or healed injury. Surrounding soft tissues are normal. IMPRESSION: Age-related arthritic changes. <Electronically signed by Jorge Luis Zapien > 03/28/21 [id number]
== END ==
LOC: M WUC 15:34
PROVIDERS: ATTEND Nurse Practitioner Adult Health
DX: M25.561 Pain in right knee (principal); M25.551 Pain in right hip; M16.11 Unilateral primary osteoarthritis, right hip; M17.11 Unilateral primary osteoarthritis, right knee

== ENCOUNTER → 2021-07-19 | Outpatient (REF) | payer MEDICARE, OTHER ==
[~2021-07-19] MED LIST changes: +BUPR-364 PO; -BUPR100T10 PO; -LISI-898 PO; +LISI5TAB11 PO; +OMEP-173 PO; -OMEP-218 PO
== END ==
LOC: M LAB REF 16:47
PROVIDERS: ATTEND Internal Medicine Nephrology
DX: N18.32 Chronic kidney disease, stage 3b (principal); R39.9 Unspecified symptoms and signs involving the genitourinary system

== ENCOUNTER → 2021-09-04 | Outpatient (REF) | payer MEDICARE, OTHER | LOC: EEVIPCON 17:08 → M LAB REF 17:08 | PROVIDERS: ATTEND Registered Nurse | DX: N76.0 Acute vaginitis (principal) ==

== ENCOUNTER → 2021-09-26 | Outpatient (REF) | payer MEDICARE, OTHER | LOC: M LAB REF 16:11 | PROVIDERS: ATTEND Nurse Practitioner Adult Health | DX: A49.02 Methicillin resistant Staphylococcus aureus infection, unspecified site (principal) ==

== ENCOUNTER → 2021-11-20 | Outpatient (REF) | payer MEDICARE, OTHER ==
[2021-11-20 17:20] LABS: BACTERIA, URINE AUTO NEGATIVE (NEGATIVE); RBC, URINE AUTO 0 /HPF (0-3); SQUAMOUS EPITHELIAL CELL UR AU 3 /HPF (0-6); WBC, URINE AUTO 1 /HPF (0-3)
[2021-11-21 20:36] LABS: POTASSIUM SERUM 4.6 MEQ/L (3.5-5.1)
== END ==
LOC: M LAB REF 16:41
PROVIDERS: ATTEND Internal Medicine Nephrology
DX: N18.32 Chronic kidney disease, stage 3b (principal); R30.0 Dysuria

== ENCOUNTER → 2022-02-22 | Outpatient (REF) | payer MEDICARE, OTHER | LOC: M LAB REF 16:51 | PROVIDERS: ATTEND Nurse Practitioner Adult Health | DX: N39.0 Urinary tract infection, site not specified (principal) ==

== ENCOUNTER → 2022-04-17 | Outpatient (REF) | payer MEDICARE, OTHER | LOC: M LAB REF 19:15 | PROVIDERS: ATTEND Physician Assistant | DX: J06.9 Acute upper respiratory infection, unspecified (principal); R05.9 Cough, unspecified; Z20.828 Contact with and (suspected) exposure to other viral communicable diseases ==

== ENCOUNTER → 2022-05-16 | Outpatient (CLI) | payer MEDICARE, OTHER ==
[~2022-05-16] MED LIST changes: +EFFE25TA8 PO; +MAGNESIUM CARBONATE; +POTA20EL PO; +PROA1AER2 INH; +RISATAB3 PO; +magnesium carbonate PO
== END ==
LOC: M WHC 13:37
PROVIDERS: ATTEND Nurse Practitioner Adult Health
DX: Z12.31 Encounter for screening mammogram for malignant neoplasm of breast (principal)

== ENCOUNTER → 2022-05-16 | Outpatient (REF) | payer MEDICARE, OTHER ==
[2022-05-16 20:48] LABS: HYALINE CAST, URINE NONE SEEN /lpf (0-1); SQUAMOUS EPITHELIAL CELL URINE LARGE AMOUNT /hpf (SMALL AMT)
[2022-05-16 20:49] LABS: BACTERIA, URINE MOD AMOUNT
== END ==
LOC: M LAB REF 17:05
PROVIDERS: ATTEND Internal Medicine Nephrology
DX: N18.32 Chronic kidney disease, stage 3b (principal); R82.81 Pyuria

== ENCOUNTER → 2022-05-16 | Outpatient (CLI) | payer MEDICARE, OTHER | LOC: M PLAIMG 14:22 | PROVIDERS: ATTEND Surgery | DX: K43.3 Parastomal hernia with obstruction, without gangrene (principal); Z48.815 Encounter for surgical aftercare following surgery on the digestive system; N28.1 Cyst of kidney, acquired; Z90.49 Acquired absence of other specified parts of digestive tract; Z93.2 Ileostomy status; D35.01 Benign neoplasm of right adrenal gland; D35.02 Benign neoplasm of left adrenal gland; Z12.31 Encounter for screening mammogram for malignant neoplasm of breast ==

== ENCOUNTER 2022-07-23 15:00 | Inpatient (IN) | payer MEDICARE, OTHER ==
[~2022-07-23] VITALS: Ht 170.2 cm; Wt 105.0 kg
[~2022-07-23 15:00] MED LIST changes: -EFFE25TA8 PO; -MAGNESIUM CARBONATE; -POTA20EL PO; -PROA1AER2 INH; -RISATAB3 PO; -magnesium carbonate PO
[2022-07-23] MEDS ORDERED: ONDANSETRON 4MG 2ML VIAL IV ONE ×2 (15:45→19:25)
[2022-07-23] MEDS: NS 1,000 ML IV SCH ×3 (15:58→22:25)
[2022-07-23 16:33] LABS: BASO % 0.2 % (0.0-1.0); HEMATOCRIT 51.1 % (36.0-47.0); HEMOGLOBIN 16.6 g/dl (12.0-15.5); LYMPH # 0.9 10^3/uL (1.5-5.0); LYMPH % 5.7 % (24.0-44.0); MEAN CORPUSCULAR HEMOGLOBIN 29.1 pg (27.0-33.0); MEAN CORPUSCULAR HGB CONC 32.5 g/dl (32.0-36.5); MEAN CORPUSCULAR VOLUME 89.6 fl (80.0-96.0); MONO # 1.4 10^3/uL (0.0-0.8); MONO % 8.6 % (2.0-8.0); NEUTROPHILS # 13.8 10^3/uL (1.5-8.5); NEUTROPHILS % 84.9 % (36.0-66.0); PLATELET COUNT, AUTOMATED 366 10^3/uL (150-450); WHITE BLOOD COUNT 16.2 10^3/uL (4.0-10.0)
[2022-07-23 16:55] LABS: ALBUMIN 3.6 G/DL (3.2-5.2); BILIRUBIN,DIRECT 0.2 MG/DL (<0.4); BILIRUBIN,TOTAL 0.8 MG/DL (0.3-1.2); CALCIUM LEVEL 10.4 MG/DL (8.3-10.6); CREATININE FOR GFR 1.19 MG/DL (0.55-1.30); GLOMERULAR FILTRATION RATE 47.6 (>39); POTASSIUM SERUM 3.9 MMOL/L (3.5-5.1); TOTAL PROTEIN 6.9 G/DL (5.7-8.2)
[2022-07-23] MEDS: GASTROGRAFIN SOLUTION 30ML PO SCH ×2 (17:26→18:06)
[2022-07-23] MEDS ORDERED: ISOVUE-370 76% 100ML VIAL As Ordered ONE (18:27)
[2022-07-23] MEDS ORDERED: PROA1AER2 INH ×2 (21:47)
[2022-07-23] MEDS ORDERED: RISATAB3 PO (21:50)
[2022-07-23] MEDS ORDERED: MAGNESIUM CARBONATE (21:54)
[2022-07-23] MEDS ORDERED: magnesium carbonate PO (21:54)
[2022-07-23] MEDS ORDERED: FURO40TA2 PO (21:56)
[2022-07-23] MEDS ORDERED: EFFE25TA8 PO (21:56)
[2022-07-23] MEDS ORDERED: SIME125C4 PO (21:57)
[2022-07-23] MEDS ORDERED: HOME MED LIST COMPLETE! XX SCH (22:00)
[2022-07-23 22:23] LABS: RSV AMPLIFICATION NEGATIVE (NEGATIVE)
[2022-07-24 00:16] VITALS: BP 136/86
[2022-07-24] MEDS: IPRATROPIUM 0.5MG/ALBUTEROL 2.5MG INH SOL UD 3ML (DUONEB) NEB PRN ×3 (01:27→21:07)
[2022-07-24] MEDS: NS 1,000 ML IV SCH (05:59)
[2022-07-24] MEDS: HEPARIN SOD (PORCINE) 5000UNITS/ML 1ML VIAL/SYRINGE SC SCH ×3 (05:59→20:48)
[2022-07-24 06:00] VITALS: BP 136/78
[2022-07-24 06:15] LABS: HEMATOCRIT 45.3 % (36.0-47.0); HEMOGLOBIN 15.2 g/dl (12.0-15.5); MEAN CORPUSCULAR HGB CONC 33.6 g/dl (32.0-36.5); MEAN CORPUSCULAR VOLUME 89.3 fl (80.0-96.0); PLATELET COUNT, AUTOMATED 329 10^3/uL (150-450); RED BLOOD COUNT 5.07 10^6/uL (4.00-5.40); WHITE BLOOD COUNT 13.2 10^3/uL (4.0-10.0)
[2022-07-24 06:39] LABS: CALCIUM LEVEL 9.4 MG/DL (8.3-10.6); CREATININE FOR GFR 1.28 MG/DL (0.55-1.30); GLOMERULAR FILTRATION RATE 43.8 (>39); POTASSIUM SERUM 3.2 MMOL/L (3.5-5.1)
[2022-07-24] MEDS: KCL 10MEQ/100ML SWI (KRUN) 10 MEQ in IV 1 EA IV SCH ×3 (08:48→12:07)
[2022-07-24] MEDS: lisinopriL 5 MG TAB PO SCH (08:48)
[2022-07-24] MEDS: ASPIRIN 81MG CHEW TABLET PO SCH (08:48)
[2022-07-24] MEDS: buPROPion 100 MG TAB PO SCH ×2 (08:51→20:48)
[2022-07-24] MEDS: ALPRAZolam 0.25 MG TAB PO PRN (08:51)
[2022-07-24] MEDS: PANTOPRAZOLE 40MG VIAL IV SCH (09:00)
[2022-07-24] MEDS: ADVAIR HFA 230/21MCG INHALER INH SCH ×2 (09:44→21:07)
[2022-07-24] MEDS ORDERED: KCL 10MEQ/100ML SWI (KRUN) 10 MEQ in IV 1 EA IV SCH (14:00)
[2022-07-24 22:00] VITALS: BP 141/71
[2022-07-25 06:00] VITALS: BP 148/78
[2022-07-25 06:20] LABS: BASO # 0.1 10^3/uL (0.0-0.2); BASO % 0.5 % (0.0-1.0); EOS # 0.1 10^3/uL (0.0-0.5); EOS % 0.7 % (0.0-3.0); HEMATOCRIT 48.8 % (36.0-47.0); HEMOGLOBIN 15.5 g/dl (12.0-15.5); MEAN CORPUSCULAR HEMOGLOBIN 29.3 pg (27.0-33.0); MEAN CORPUSCULAR HGB CONC 31.8 g/dl (32.0-36.5); MEAN CORPUSCULAR VOLUME 92.2 fl (80.0-96.0); MONO # 1.2 10^3/uL (0.0-0.8); MONO % 11.2 % (2.0-8.0); NEUTROPHILS % 77.1 % (36.0-66.0); PLATELET COUNT, AUTOMATED 291 10^3/uL (150-450); RED BLOOD COUNT 5.29 10^6/uL (4.00-5.40); WHITE BLOOD COUNT 10.4 10^3/uL (4.0-10.0)
[2022-07-25] MEDS: HEPARIN SOD (PORCINE) 5000UNITS/ML 1ML VIAL/SYRINGE SC SCH ×3 (06:23→22:14)
[2022-07-25 06:49] LABS: CREATININE FOR GFR 1.25 MG/DL (0.55-1.30); POTASSIUM SERUM 3.3 MMOL/L (3.5-5.1)
[2022-07-25] MEDS: ADVAIR HFA 230/21MCG INHALER INH SCH ×2 (08:00→19:34)
[2022-07-25] MEDS: lisinopriL 5 MG TAB PO SCH (08:16)
[2022-07-25] MEDS: PANTOPRAZOLE 40MG VIAL IV SCH (08:16)
[2022-07-25] MEDS: ALPRAZolam 0.25 MG TAB PO PRN ×2 (08:17→20:36)
[2022-07-25] MEDS: ASPIRIN 81MG CHEW TABLET PO SCH (08:17)
[2022-07-25] MEDS: KCL 10MEQ/100ML SWI (KRUN) 10 MEQ in IV 1 EA IV SCH ×4 (08:17→17:46)
[2022-07-25] MEDS: buPROPion 100 MG TAB PO SCH ×2 (08:21→20:35)
[2022-07-25 14:00] VITALS: BP 141/74
[2022-07-25] MEDS ORDERED: KCL 10MEQ/100ML SWI (KRUN) 10 MEQ in IV 1 EA IV ONE (17:00)
[2022-07-25 22:00] VITALS: BP 134/69
[2022-07-25] MEDS: IPRATROPIUM 0.5MG/ALBUTEROL 2.5MG INH SOL UD 3ML (DUONEB) NEB PRN (23:15)
[2022-07-26] MEDS: HEPARIN SOD (PORCINE) 5000UNITS/ML 1ML VIAL/SYRINGE SC SCH ×2 (05:39→13:48)
[2022-07-26 05:50] LABS: BASO # 0.1 10^3/uL (0.0-0.2); BASO % 0.6 % (0.0-1.0); EOS # 0.1 10^3/uL (0.0-0.5); EOS % 1.3 % (0.0-3.0); HEMATOCRIT 42.8 % (36.0-47.0); HEMOGLOBIN 13.7 g/dl (12.0-15.5); LYMPH # 1.3 10^3/uL (1.5-5.0); MEAN CORPUSCULAR HEMOGLOBIN 29.4 pg (27.0-33.0); MEAN CORPUSCULAR VOLUME 91.8 fl (80.0-96.0); MONO % 11.4 % (2.0-8.0); NEUTROPHILS # 6.5 10^3/uL (1.5-8.5); NEUTROPHILS % 72.3 % (36.0-66.0); PLATELET COUNT, AUTOMATED 248 10^3/uL (150-450); RED BLOOD COUNT 4.66 10^6/uL (4.00-5.40); WHITE BLOOD COUNT 8.9 10^3/uL (4.0-10.0)
[2022-07-26 06:00] VITALS: BP 104/53
[2022-07-26 06:13] LABS: CALCIUM LEVEL 8.5 MG/DL (8.3-10.6); CREATININE FOR GFR 1.19 MG/DL (0.55-1.30); GLOMERULAR FILTRATION RATE 47.6 (>39)
[2022-07-26] MEDS ORDERED: POTASSIUM CHLORIDE 10MEQ SR TABLET PO ONE (07:25)
[2022-07-26] MEDS: IPRATROPIUM 0.5MG/ALBUTEROL 2.5MG INH SOL UD 3ML (DUONEB) NEB PRN ×2 (07:26→11:41)
[2022-07-26] MEDS: ADVAIR HFA 230/21MCG INHALER INH SCH (07:26)
[2022-07-26 09:00] VITALS: BP 130/70
[2022-07-26] MEDS: KCL 10MEQ/100ML SWI (KRUN) 10 MEQ in IV 1 EA IV SCH ×3 (09:00→10:00)
[2022-07-26] MEDS ORDERED: POTASSIUM CHLORIDE 10% LIQ 20MEQ/15ML UDC PO ONE ×2 (09:05→13:20)
[2022-07-26] MEDS: ALPRAZolam 0.25 MG TAB PO PRN (09:15)
[2022-07-26] MEDS: buPROPion 100 MG TAB PO SCH (09:15)
[2022-07-26 09:16] VITALS: BP 130/70
[2022-07-26] MEDS: lisinopriL 5 MG TAB PO SCH (09:16)
[2022-07-26] MEDS: ASPIRIN 81MG CHEW TABLET PO SCH (09:16)
[2022-07-26] MEDS: PANTOPRAZOLE 40MG VIAL IV SCH (09:17)
[2022-07-26 14:00] VITALS: BP 132/70
[2022-07-26] MEDS ORDERED: POTA20EL PO (16:32)
== END 2022-07-26 17:30 | disposition home or self-care (01) | DRG 394 ==
LOC: M ED 15:00 → EDBD 15:00 → EEVIPCON 22:05 → M ED INP 22:05 → M MSPAV 07-24 00:16
PROVIDERS: ADMIT Family Medicine; ATTEND Internal Medicine
DX: K43.3 Parastomal hernia with obstruction, without gangrene (principal); J98.11 Atelectasis; I12.9 Hypertensive chronic kidney disease with stage 1 through stage 4 chronic kidney disease, or unspecified chronic kidney disease; J44.9 Chronic obstructive pulmonary disease, unspecified; N18.31 Chronic kidney disease, stage 3a; K21.9 Gastro-esophageal reflux disease without esophagitis; E87.6 Hypokalemia; G47.33 Obstructive sleep apnea (adult) (pediatric); F17.200 Nicotine dependence, unspecified, uncomplicated; Z79.899 Other long term (current) drug therapy; Z79.82 Long term (current) use of aspirin; Z88.0 Allergy status to penicillin; Z88.8 Allergy status to other drugs, medicaments and biological substances; Z85.048 Personal history of other malignant neoplasm of rectum, rectosigmoid junction, and anus

== ENCOUNTER → 2022-07-31 | Outpatient (CLI) | payer MEDICARE, OTHER ==
[~2022-07-31] MED LIST changes: +EFFE25TA8 PO; +MAGNESIUM CARBONATE; +POTA20EL PO; +PROA1AER2 INH; +RISATAB3 PO; +magnesium carbonate PO
== END ==
LOC: M RAD 06:47
PROVIDERS: ATTEND Nurse Practitioner Adult Health
DX: F17.218 Nicotine dependence, cigarettes, with other nicotine-induced disorders (principal)

== ENCOUNTER → 2022-08-21 | Outpatient (CLI) | payer MEDICARE, OTHER ==
[~2022-08-21] MED LIST changes: +ASPI-655 PO; -ASPI1CHW3 PO
[2022-08-21 16:38] LABS: MAGNESIUM LEVEL 1.5 MG/DL (1.8-2.4)
[2022-08-24 17:34] LABS: CREATININE FOR GFR 1.13 MG/DL (0.55-1.30); GLOMERULAR FILTRATION RATE 50.5 (>39)
== END ==
LOC: M LABDRWAD 11:57
PROVIDERS: ATTEND Nurse Practitioner Adult Health
DX: E83.42 Hypomagnesemia (principal); E78.00 Pure hypercholesterolemia, unspecified

== ENCOUNTER → 2022-10-15 | Outpatient (REF) | payer MEDICARE, OTHER ==
[~2022-10-15] MED LIST changes: +CALM PO; +CLIN150C17 PO; +TREL1AER INH; +VITA100093 PO; +[UNRECOGNIZED DRUG - REMARK]
== END ==
LOC: M LAB REF 16:11
PROVIDERS: ATTEND Internal Medicine
DX: R06.02 Shortness of breath (principal)

== ENCOUNTER → 2022-10-22 | Outpatient (REF) | payer MEDICARE, OTHER ==
[~2022-10-22] MED LIST changes: +ALBU8.5H INH; +CALM POWDER PO
[2022-10-22 20:29] LABS: ATYPICAL LYMPH 1 % (0-5); LYMPHOCYTES 22 % (16-44); MONOCYTES 10 % (0-5); NEUTROPHILS 67 % (28-66); PLATELET ESTIMATE NORMAL (NORMAL)
== END ==
LOC: M LAB REF 16:22
PROVIDERS: ATTEND Internal Medicine
DX: D72.9 Disorder of white blood cells, unspecified (principal)

== ENCOUNTER 2022-10-29 16:45 | Inpatient (IN) | payer MEDICARE, OTHER ==
[~2022-10-29] VITALS: Ht 170.2 cm; Wt 102.8 kg
[~2022-10-29 16:45] MED LIST changes: -ALBU8.5H INH; -CALM POWDER PO
[2022-10-29] MEDS ORDERED: ACETAMINOPHEN TAB 650MG DOSE (2X325MG) PO ONE (21:05)
[2022-10-29 21:25] LABS: BASO # 0.1 10^3/uL (0.0-0.2); BASO % 0.5 % (0.0-1.0); EOS # 0.1 10^3/uL (0.0-0.5); EOS % 0.9 % (0.0-3.0); HEMATOCRIT 43.1 % (36.0-47.0); HEMOGLOBIN 15.2 g/dl (12.0-15.5); LYMPH # 1.4 10^3/uL (1.5-5.0); MEAN CORPUSCULAR HEMOGLOBIN 29.6 pg (27.0-33.0); MEAN CORPUSCULAR HGB CONC 35.3 g/dl (32.0-36.5); MONO # 1.3 10^3/uL (0.0-0.8); MONO % 9.4 % (2.0-8.0); NEUTROPHILS # 11.2 10^3/uL (1.5-8.5); NEUTROPHILS % 78.5 % (36.0-66.0); PLATELET COUNT, AUTOMATED 471 10^3/uL (150-450); RED BLOOD COUNT 5.13 10^6/uL (4.00-5.40); WHITE BLOOD COUNT 14.2 10^3/uL (4.0-10.0)
[2022-10-29 21:32] LABS: ERYTHROCYTE SEDIMENTATION RATE 49 mm/hr (0-30)
[2022-10-29 21:41] LABS: CALCIUM LEVEL 9.4 MG/DL (8.3-10.6); CREATININE FOR GFR 1.3 MG/DL (0.55-1.30); POTASSIUM SERUM 4.4 MMOL/L (3.5-5.1)
[2022-10-29 21:49] LABS: C REACTIVE PROTEIN QUANTITATIV 1.9 MG/DL (<1.0)
[2022-10-29 22:40] LABS: RSV AMPLIFICATION NEGATIVE (NEGATIVE)
[2022-10-29] MEDS ORDERED: VANCOMYCIN HCL 2,000 MG in D5W 500 ML IV ONE (23:45)
[2022-10-30] MEDS ORDERED: KETOROLAC 30 MG/ML 1ML VIAL IV ONE (00:30)
[2022-10-30] MEDS ORDERED: VANCOMYCIN HCL 1,000 MG, VIAL MATE ADAPTER 1 EACH in D5W 250 ML IV ONE ×4 (01:00)
[2022-10-30] MEDS ORDERED: EFFE25TA8 PO (02:20)
[2022-10-30] MEDS ORDERED: ALBU8.5H INH (02:20)
[2022-10-30] MEDS ORDERED: CALM POWDER PO (02:20)
[2022-10-30] MEDS ORDERED: HOME MED LIST COMPLETE! XX SCH (02:25)
[2022-10-30 05:54] LABS: HEMOGLOBIN 13.8 g/dl (12.0-15.5); MEAN CORPUSCULAR HEMOGLOBIN 29.4 pg (27.0-33.0); MEAN CORPUSCULAR HGB CONC 34.5 g/dl (32.0-36.5); MEAN CORPUSCULAR VOLUME 85.1 fl (80.0-96.0); WHITE BLOOD COUNT 13.1 10^3/uL (4.0-10.0)
[2022-10-30 05:55] LABS: CREATININE FOR GFR 1.32 MG/DL (0.55-1.30); GLOMERULAR FILTRATION RATE 42.2 (>39); POTASSIUM SERUM 4.1 MMOL/L (3.5-5.1)
[2022-10-30 05:56] LABS: PLATELET COUNT, AUTOMATED 358 10^3/uL (150-450)
[2022-10-30] MEDS ORDERED: NS 1,000 ML IV SCH (07:00)
[2022-10-30] MEDS: COMBIVENT RESPIMAT 100-20MCG INHALER 4GM INH SCH (08:01)
[2022-10-30] MEDS: ALPRAZolam 0.25 MG TAB PO SCH ×2 (08:17→20:55)
[2022-10-30] MEDS: HEPARIN SOD (PORCINE) 5000UNITS/ML 1ML VIAL/SYRINGE SC SCH ×3 (08:17→22:24)
[2022-10-30] MEDS: ASPIRIN 81MG CHEW TABLET PO SCH (08:17)
[2022-10-30] MEDS: FUROSEMIDE 20 MG TAB PO SCH ×2 (08:18→16:50)
[2022-10-30] MEDS: ACETAMINOPHEN TAB 650MG DOSE (2X325MG) PO PRN ×2 (08:45→13:08)
[2022-10-30] MEDS: buPROPion 100 MG TAB PO SCH ×2 (08:45→20:55)
[2022-10-30] MEDS: VANCOMYCIN HCL 1,000 MG, VIAL MATE ADAPTER 1 EACH in NS 250 ML IV SCH ×2 (12:00→23:51)
[2022-10-30 14:50] VITALS: BP 110/91; TEMP 97.3; O2SAT 98
[2022-10-30 14:53] LABS: CALCIUM LEVEL 9.1 MG/DL (8.3-10.6); CREATININE FOR GFR 1.27 MG/DL (0.55-1.30); GLOMERULAR FILTRATION RATE 44.2 (>39); POTASSIUM SERUM 4.3 MMOL/L (3.5-5.1)
[2022-10-30 16:21] LABS: OSMOLALITY URINE 380 MOSM/KG (50-1400)
[2022-10-30 16:29] LABS: SODIUM,RANDOM URINE < 10 MMOL/L
[2022-10-30] MEDS: traMADol 50 MG TAB PO PRN (16:59)
[2022-10-30] MEDS ORDERED: RAMELTEON 8 MG TAB (ROZEREM) PO PRN (19:55)
[2022-10-30 20:32] VITALS: BP 128/67; TEMP 97.3; O2SAT 98
[2022-10-30] MEDS: KETOROLAC 30 MG/ML 1ML VIAL IV PRN (20:56)
[2022-10-31] MEDS ORDERED: HYALURONIDASE 150UNIT/ML 1ML VIAL (AMPHADASE) SC ONE (01:30)
[2022-10-31] MEDS ORDERED: HYALURONIDASE 150UNIT/ML 1ML VIAL (AMPHADASE) ID ONE (01:50)
[2022-10-31] MEDS: COMBIVENT RESPIMAT 100-20MCG INHALER 4GM INH SCH ×3 (01:52→19:31)
[2022-10-31] MEDS: HEPARIN SOD (PORCINE) 5000UNITS/ML 1ML VIAL/SYRINGE SC SCH ×3 (05:37→21:11)
[2022-10-31] MEDS: KETOROLAC 30 MG/ML 1ML VIAL IV PRN ×2 (05:38→13:17)
[2022-10-31 06:00] VITALS: BP 133/69; TEMP 97.5; O2SAT 99
[2022-10-31 06:28] LABS: BASO # 0.1 10^3/uL (0.0-0.2); BASO % 0.5 % (0.0-1.0); EOS # 0.1 10^3/uL (0.0-0.5); EOS % 1.1 % (0.0-3.0); HEMATOCRIT 42.2 % (36.0-47.0); HEMOGLOBIN 14.6 g/dl (12.0-15.5); LYMPH # 1.2 10^3/uL (1.5-5.0); LYMPH % 11.3 % (24.0-44.0); MEAN CORPUSCULAR HEMOGLOBIN 29.5 pg (27.0-33.0); MEAN CORPUSCULAR HGB CONC 34.6 g/dl (32.0-36.5); MEAN CORPUSCULAR VOLUME 85.3 fl (80.0-96.0); MONO # 1.3 10^3/uL (0.0-0.8); MONO % 12.5 % (2.0-8.0); NEUTROPHILS # 7.7 10^3/uL (1.5-8.5); NEUTROPHILS % 73.9 % (36.0-66.0); PLATELET COUNT, AUTOMATED 416 10^3/uL (150-450); RED BLOOD COUNT 4.95 10^6/uL (4.00-5.40); WHITE BLOOD COUNT 10.4 10^3/uL (4.0-10.0)
[2022-10-31 06:57] LABS: CALCIUM LEVEL 10.4 MG/DL (8.3-10.6); CREATININE FOR GFR 1.32 MG/DL (0.55-1.30); GLOMERULAR FILTRATION RATE 42.2 (>39); MAGNESIUM LEVEL 1.2 MG/DL (1.8-2.4); POTASSIUM SERUM 4.4 MMOL/L (3.5-5.1)
[2022-10-31] MEDS ORDERED: MAGNESIUM OXIDE 400MG TAB (MAG-OX) PO ONE (08:00)
[2022-10-31] MEDS: ASPIRIN 81MG CHEW TABLET PO SCH (08:01)
[2022-10-31] MEDS: ALPRAZolam 0.25 MG TAB PO SCH ×2 (08:01→21:10)
[2022-10-31] MEDS: FUROSEMIDE 20 MG TAB PO SCH ×2 (08:02→16:07)
[2022-10-31] MEDS: buPROPion 100 MG TAB PO SCH ×2 (08:02→21:09)
[2022-10-31] MEDS: traMADol 50 MG TAB PO PRN ×2 (08:17→21:10)
[2022-10-31] MEDS ORDERED: MAG SULF 1GM/100ML (MAG RUN) 1 GM in IV 1 EA IV ONE (09:00)
[2022-10-31 13:49] LABS: CALCIUM LEVEL 11.2 MG/DL (8.3-10.6); CREATININE FOR GFR 1.36 MG/DL (0.55-1.30); GLOMERULAR FILTRATION RATE 40.8 (>39); MAGNESIUM LEVEL 1.8 MG/DL (1.8-2.4); POTASSIUM SERUM 4.4 MMOL/L (3.5-5.1)
[2022-10-31 14:00] VITALS: BP 132/69; TEMP 97.7; O2SAT 97
[2022-10-31] MEDS ORDERED: FUROSEMIDE 20 MG TAB PO ONE (14:35)
[2022-10-31] MEDS ORDERED: VANCOMYCIN HCL 750 MG, VIAL MATE ADAPTER 1 EACH in D5W 250 ML IV SCH (15:00)
[2022-10-31] MEDS: lisinopriL 5 MG TAB PO SCH (15:39)
[2022-10-31] MEDS ORDERED: VANCOMYCIN HCL 500 MG in D5W MINI-BAG PLUS 100 ML IV SCH (16:00)
[2022-10-31 20:00] VITALS: BP 132/69; TEMP 97.3; O2SAT 100
[2022-10-31] MEDS ORDERED: OMEPRAZOLE 20MG CAP PO SCH (22:30)
[2022-10-31] MEDS ORDERED: PILL CUTTER 1 EACH XX PRN (23:05)
[2022-10-31] MEDS ORDERED: traMADol 50 MG TAB PO ONE (23:05)
[2022-11-01 06:00] VITALS: BP 117/69; TEMP 96.8; O2SAT 98
[2022-11-01] MEDS: HEPARIN SOD (PORCINE) 5000UNITS/ML 1ML VIAL/SYRINGE SC SCH ×2 (06:00→14:00)
[2022-11-01 06:09] LABS: BASO # 0.1 10^3/uL (0.0-0.2); BASO % 0.7 % (0.0-1.0); EOS # 0.1 10^3/uL (0.0-0.5); EOS % 0.9 % (0.0-3.0); HEMATOCRIT 44.8 % (36.0-47.0); HEMOGLOBIN 15.2 g/dl (12.0-15.5); LYMPH # 1.4 10^3/uL (1.5-5.0); LYMPH % 11.6 % (24.0-44.0); MEAN CORPUSCULAR HEMOGLOBIN 29.6 pg (27.0-33.0); MEAN CORPUSCULAR HGB CONC 33.9 g/dl (32.0-36.5); MEAN CORPUSCULAR VOLUME 87.2 fl (80.0-96.0); MONO # 1.4 10^3/uL (0.0-0.8); MONO % 11.4 % (2.0-8.0); NEUTROPHILS % 74.6 % (36.0-66.0); PLATELET COUNT, AUTOMATED 492 10^3/uL (150-450); RED BLOOD COUNT 5.14 10^6/uL (4.00-5.40)
[2022-11-01 06:34] LABS: CALCIUM LEVEL 9.9 MG/DL (8.3-10.6); CREATININE FOR GFR 1.81 MG/DL (0.55-1.30); GLOMERULAR FILTRATION RATE 29.3 (>39); MAGNESIUM LEVEL 1.7 MG/DL (1.8-2.4); POTASSIUM SERUM 4.6 MMOL/L (3.5-5.1)
[2022-11-01] MEDS: COMBIVENT RESPIMAT 100-20MCG INHALER 4GM INH SCH (07:17)
[2022-11-01] MEDS ORDERED: LACTOBACILLUS ACIDOPHILUS CAP (BACID) PO SCH (09:00)
[2022-11-01 09:54] VITALS: BP 120/78
[2022-11-01] MEDS: ALPRAZolam 0.25 MG TAB PO SCH (09:54)
[2022-11-01] MEDS: ASPIRIN 81MG CHEW TABLET PO SCH (09:54)
[2022-11-01] MEDS: buPROPion 100 MG TAB PO SCH (09:54)
[2022-11-01] MEDS: lisinopriL 5 MG TAB PO SCH (09:54)
[2022-11-01] MEDS: FUROSEMIDE 20 MG TAB PO SCH (09:54)
[2022-11-01] MEDS: traMADol 50 MG TAB PO PRN (09:55)
[2022-11-01 12:17] LABS: CALCIUM LEVEL 9.6 MG/DL (8.3-10.6); CREATININE FOR GFR 1.72 MG/DL (0.55-1.30); GLOMERULAR FILTRATION RATE 31.1 (>39); POTASSIUM SERUM 4.2 MMOL/L (3.5-5.1)
[2022-11-01] MEDS ORDERED: ACET1TAB55 PO (12:58)
[2022-11-01] MEDS ORDERED: DOXY-444 PO (12:59)
[2022-11-01] MEDS ORDERED: RAME8TAB2 PO (12:59)
[2022-11-01] MEDS ORDERED: TRAM50TA2 PO (12:59)
[2022-11-01] MEDS ORDERED: BACT800T5 PO (13:08)
[2022-11-01] MEDS ORDERED: VANCOMYCIN HCL 1,000 MG, VIAL MATE ADAPTER 1 EACH in D5W 250 ML IV ONE (15:00)
== END 2022-11-01 15:36 | disposition home or self-care (01) | DRG 603 ==
LOC: M ED 16:45 → EEVIPCON 10-30 01:12 → M ED INP 10-30 01:12 → ENRESERV 10-30 13:56 → M MSPAV 10-30 14:41
PROVIDERS: ADMIT Internal Medicine; ATTEND Family Medicine
DX: L03.116 Cellulitis of left lower limb (principal); E87.1 Hypo-osmolality and hyponatremia; I12.9 Hypertensive chronic kidney disease with stage 1 through stage 4 chronic kidney disease, or unspecified chronic kidney disease; F17.210 Nicotine dependence, cigarettes, uncomplicated; F32.A Depression, unspecified; F41.9 Anxiety disorder, unspecified; J44.9 Chronic obstructive pulmonary disease, unspecified; N18.9 Chronic kidney disease, unspecified; K21.9 Gastro-esophageal reflux disease without esophagitis; Z79.82 Long term (current) use of aspirin; Z79.899 Other long term (current) drug therapy; Z88.0 Allergy status to penicillin; Z88.8 Allergy status to other drugs, medicaments and biological substances; Z20.822 Contact with and (suspected) exposure to COVID-19; Z93.2 Ileostomy status; Z85.048 Personal history of other malignant neoplasm of rectum, rectosigmoid junction, and anus

== ENCOUNTER → 2022-10-29 | Outpatient (REF) | payer MEDICARE, OTHER ==
[2022-10-29 19:46] LABS: LYMPHOCYTES 10 % (16-44); MONOCYTES 4 % (0-5); NEUTROPHILS 86 % (28-66)
[2022-10-29 19:47] LABS: PLATELET ESTIMATE NORMAL (NORMAL)
== END ==
LOC: M LAB REF 16:23
PROVIDERS: ATTEND Nurse Practitioner Adult Health
DX: D72.9 Disorder of white blood cells, unspecified (principal)

== ENCOUNTER → 2023-01-29 | Outpatient (REF) | payer MEDICARE, OTHER ==
[~2023-01-29] MED LIST changes: +ACET1TAB55 PO; +ALBU8.5H INH; +BACT800T5 PO; +CALM POWDER PO; +DOXY-444 PO; +RAME8TAB2 PO; +TRAM50TA2 PO
[2023-01-29 20:19] LABS: ATYPICAL LYMPH 4 % (0-5); BASOPHILS 1 % (0-1); LYMPHOCYTES 8 % (16-44); METAMYELOCYTES 1 % (0-0); MONOCYTES 4 % (0-5); NEUTROPHILS 80 % (28-66); PLATELET ESTIMATE NORMAL (NORMAL)
[2023-01-29 20:21] LABS: ANISOCYTOSIS 1+; MICROCYTOSIS 1+
== END ==
LOC: M LAB REF 16:42
PROVIDERS: ATTEND Nurse Practitioner Adult Health
DX: D72.9 Disorder of white blood cells, unspecified (principal)

== ENCOUNTER → 2023-03-08 | Outpatient (CLI) | payer MEDICARE, OTHER | LOC: M RAD 09:29 | PROVIDERS: ATTEND Surgery Vascular Surgery | DX: I73.9 Peripheral vascular disease, unspecified (principal); I87.312 Chronic venous hypertension (idiopathic) with ulcer of left lower extremity; I12.9 Hypertensive chronic kidney disease with stage 1 through stage 4 chronic kidney disease, or unspecified chronic kidney disease; N18.30 Chronic kidney disease, stage 3 unspecified ==

== ENCOUNTER → 2023-03-14 | Outpatient (REF) | payer MEDICARE, OTHER | LOC: M SFHCDERM 08:33 | PROVIDERS: ATTEND Physician Assistant | DX: L85.8 Other specified epidermal thickening (principal) ==

== ENCOUNTER → 2023-04-09 | Outpatient (CLI) | payer MEDICARE, OTHER ==
[~2023-04-09] MED LIST changes: +ISOVUE-370 76% 100ML VIAL As Ordered ONE
== END ==
LOC: M RAD 13:20
PROVIDERS: ATTEND Surgery
DX: I87.312 Chronic venous hypertension (idiopathic) with ulcer of left lower extremity (principal); I70.0 Atherosclerosis of aorta; I70.203 Unspecified atherosclerosis of native arteries of extremities, bilateral legs; Z90.49 Acquired absence of other specified parts of digestive tract; K57.90 Diverticulosis of intestine, part unspecified, without perforation or abscess without bleeding
CPT/HCPCS: 75635; Q9967

== ENCOUNTER → 2023-04-25 | Outpatient (CLI) | payer MEDICARE, OTHER ==
[~2023-04-25] MED LIST changes: -ISOVUE-370 76% 100ML VIAL As Ordered ONE
== END ==
LOC: M RAD 08:33
PROVIDERS: ATTEND Nurse Practitioner Adult Health
DX: N28.1 Cyst of kidney, acquired (principal); E27.8 Other specified disorders of adrenal gland; N28.89 Other specified disorders of kidney and ureter

== ENCOUNTER → 2023-04-30 | Outpatient (CLI) | payer MEDICARE, OTHER | LOC: M RAD 12:16 | PROVIDERS: ATTEND Nurse Practitioner Adult Health | DX: N83.201 Unspecified ovarian cyst, right side (principal); R93.89 Abnormal findings on diagnostic imaging of other specified body structures ==

== ENCOUNTER → 2023-06-07 | Outpatient (CLI) | payer MEDICARE, OTHER | LOC: M WHC 13:03 | PROVIDERS: ATTEND Internal Medicine | DX: Z12.31 Encounter for screening mammogram for malignant neoplasm of breast (principal) ==

== ENCOUNTER → 2023-06-26 | Outpatient (CLI) | payer MEDICARE, OTHER ==
[~2023-06-26] MED LIST changes: -POTA20EL PO; +POTA20LI16 PO
== END ==
LOC: M PLAIMG 13:07
PROVIDERS: ATTEND Nurse Practitioner Family
DX: K43.5 Parastomal hernia without obstruction or gangrene (principal); K43.2 Incisional hernia without obstruction or gangrene; N28.1 Cyst of kidney, acquired; K76.0 Fatty (change of) liver, not elsewhere classified; Z90.49 Acquired absence of other specified parts of digestive tract

== ENCOUNTER → 2023-07-02 | Outpatient (REF) | payer MEDICARE, OTHER ==
[~2023-07-02] MED LIST changes: -B-COTAB4 PO; +DIPH1TAB81 PO; -DIPH2.5T15 PO; +VITA1TAB78 PO
== END ==
LOC: M SFHCDERM 09:04
PROVIDERS: ATTEND Physician Assistant
DX: L57.8 Other skin changes due to chronic exposure to nonionizing radiation (principal)

== ENCOUNTER → 2023-09-24 | Outpatient (CLI) | payer MEDICARE ==
[~2023-09-24] MED LIST changes: +DOXY-440 PO; -DOXY-444 PO
== END ==
LOC: M RAD 14:40
PROVIDERS: ATTEND Nurse Practitioner Adult Health
DX: Z87.891 Personal history of nicotine dependence (principal)

== ENCOUNTER → 2024-03-24 | Outpatient (CLI) | payer MEDICARE, OTHER | LOC: M PLAIMG 12:48 | PROVIDERS: ATTEND Nurse Practitioner Adult Health | DX: R91.8 Other nonspecific abnormal finding of lung field (principal); D35.00 Benign neoplasm of unspecified adrenal gland ==

== ENCOUNTER → 2024-05-20 | Outpatient (REF) | payer MEDICARE, OTHER ==
[2024-05-21 15:02] LABS: ATYPICAL LYMPH 2 % (0-5); EOSINOPHILS 2 % (0-3); LYMPHOCYTES 7 % (16-44); MONOCYTES 7 % (0-5); NEUTROPHILS 81 % (28-66)
[2024-05-21 15:03] LABS: PLATELET ESTIMATE NORMAL (NORMAL)
== END ==
LOC: M LAB REF 13:43
PROVIDERS: ATTEND Nurse Practitioner Adult Health
DX: D72.9 Disorder of white blood cells, unspecified (principal)

== ENCOUNTER → 2024-06-09 | Outpatient (CLI) | payer MEDICARE, OTHER | LOC: M PLAIMG 14:50 | PROVIDERS: ATTEND Nurse Practitioner Family | DX: K43.5 Parastomal hernia without obstruction or gangrene (principal); N20.0 Calculus of kidney; I70.0 Atherosclerosis of aorta; Z12.31 Encounter for screening mammogram for malignant neoplasm of breast; R92.323 Mammographic fibroglandular density, bilateral breasts; R92.8 Other abnormal and inconclusive findings on diagnostic imaging of breast ==

== ENCOUNTER → 2024-06-09 | Outpatient (CLI) | payer MEDICARE, OTHER | LOC: M WHC 14:51 | PROVIDERS: ATTEND Nurse Practitioner Adult Health | DX: Z12.31 Encounter for screening mammogram for malignant neoplasm of breast (principal) ==

== ENCOUNTER → 2024-06-30 | Outpatient (CLI) | payer MEDICARE, OTHER | LOC: M WHC 13:14 | PROVIDERS: ATTEND Nurse Practitioner Adult Health | DX: R92.8 Other abnormal and inconclusive findings on diagnostic imaging of breast (principal); R92.313 Mammographic fatty tissue density, bilateral breasts; N63.10 Unspecified lump in the right breast, unspecified quadrant | CPT/HCPCS: 76642; 77065; G0279 ==

== ENCOUNTER → 2024-07-09 | Outpatient (CLI) | payer MEDICARE, OTHER ==
[2024-07-09 07:11] VITALS: BP 156/88; TEMP 98.3; O2SAT 98
== END ==
LOC: M WHCPRO 07:08
PROVIDERS: ATTEND Nurse Practitioner Adult Health
DX: R92.8 Other abnormal and inconclusive findings on diagnostic imaging of breast (principal); N63.11 Unspecified lump in the right breast, upper outer quadrant; N60.81 Other benign mammary dysplasias of right breast

== ENCOUNTER → 2024-11-25 | Outpatient (CLI) | payer MEDICARE, OTHER | LOC: M PLAIMG 13:59 | PROVIDERS: ATTEND Nurse Practitioner Adult Health | DX: R91.8 Other nonspecific abnormal finding of lung field (principal) ==